=== PATIENT | male | born 1980 | race Caucasian/White ===

== ENCOUNTER 2020-09-10 14:59 | Emergency (ER) | payer OTHER, SELFPAY ==
--- NOTE | ~2020-09-10 | XR_ITS ---
EXAMINATION: XR chest 2V EXAM DATE: 09/10/2020 15:54 INDICATION: Productive cough X 1 week, migraine headache. TECHNIQUE: Frontal and lateral projections of the chest obtained and reviewed. Comparison is made to prior examination from 07/02/2015. FINDINGS: Several regions of small scattered reticulonodular postinfectious residua. The lungs are ot herwise clear. There are no pleural effusions. The cardiomediastinal silhouette is within normal li mits. There is no pneumothorax suspected. The bones and soft tissues are unremarkable. IMPRESSION: No acute cardiopulmonary findings. Reviewed, dictated and finalized at location A.
[2020-09-10 15:26] VITALS: BP 139/90; PULSE 81; RESP 16; TEMP 36.5; O2SAT 98
--- NOTE | 2020-09-10 17:03 | ED.GENADULT ---
HPI - General Adult General Chief complaint: Upper Respiratory Infection Stated complaint: COUGH [id number] Time Seen by Provider: 09/10/20 16:52 History of Present Illness HPI narrative: Patient is a 40-year-old male who presents ER with cough. Ongoing for last few days. He has been vaccinated against Covid. No fevers or chills or sweats. Worse at night is laying down. Associate with runny nose. When he coughs hard he will develop a headache. Related Data Allergies Allergy/AdvReac Type Severity Reaction Status Date / Time No Known Allergies Allergy Unverified 04/25/17 14:46 Review of Systems Constitutional: Constitutional: Denies chills, Denies fever(s) and Denies weakness ENT: Reports nasal congestion and Denies sore throat Cardiovascular: Cardiovascular: Denies chest pain and Denies radiating jaw, neck or arm pain Respiratory: Respiratory: Reports cough, Denies dyspnea and Denies wheezing PMFSH Past Medical History Medical History (Updated 09/10/20 @ 17:05 by Supa Raymundo MD) Healthy adult male Surgical History Surgical History (Updated 09/10/20 @ 17:04 by Supa Raymundo MD) No history of previous surgery Social History Social History (Updated 09/10/20 @ 17:04 by Supa Raymundo MD) Smoking status: Current every day smoker Smoking end date: 03/02/03 Alcohol intake: never Exam Narrative: Exam Narrative: GENERAL: Well-appearing, well-nourished, and in no acute distress. HEAD: Normocephalic, atraumatic. ENT: Mucous membranes moist. No pharyngeal erythema or tonsillar exudate. CHEST: Clear to auscultation. No respiratory distress. HEART: Regular rate and rhythm. Normal peripheral pulses. NEURO: Alert and oriented x3. PSYCH: Normal mood and affect. Course Course Emergency Course: Discharge home with outpatient medication as he has been having rubbing of his nose as well as rhinorrhea. No improvement with dextromethorphan/guaifenesin. Vital Signs Vital signs: Vital Signs Temperature 97.7 F 09/10/20 15:26 Pulse Rate 81 09/10/20 15:26 Respiratory Rate 16 09/10/20 15:26 Blood Pressure 139/90 09/10/20 15:26 Pulse Oximetry 98 09/10/20 15:26 Temperature 97.7 F 09/10/20 15:26 Pulse Rate 81 09/10/20 15:26 Respiratory Rate 16 09/10/20 15:26 Blood Pressure 139/90 09/10/20 15:26 Pulse Oximetry 98 09/10/20 15:26 Medical Decision Making Vital Signs Vital Signs: Vital Signs Temperature 97.7 F 09/10/20 15:26 Pulse Rate 81 09/10/20 15:26 Respiratory Rate 16 09/10/20 15:26 Blood Pressure 139/90 09/10/20 15:26 Pulse Oximetry 98 09/10/20 15:26 Temperature 97.7 F 09/10/20 15:26 Pulse Rate 81 09/10/20 15:26 Respiratory Rate 16 09/10/20 15:26 Blood Pressure 139/90 09/10/20 15:26 Pulse Oximetry 98 09/10/20 15:26 Discharge Plan Discharge Clinical Impression: Upper respiratory infection Patient Disposition: Home, Self-Care Condition: Stable Instructions: Upper Respiratory Infection (ED) Additional Instructions: Return the ER for cavities, you cannot keep down food or water, you have chest pain or shortness of breath, you have additional concerns. Prescriptions: New loratadine [Allergy Relief (loratadine)] 10 mg tablet 10 mg PO DAILY Qty: 10 RF: 0 Follow-up/Referrals: Jean Claude De MD [Physician] - 1 Week PHYSICIAN,TAX ADJUSTER [Primary Care Provider] -
[2020-09-10 17:24] VITALS: BP 128/91; PULSE 72; RESP 15; O2SAT 94
== END 2020-09-10 17:25 | disposition home or self-care (01) ==
PROVIDERS: Emergency Provider Emergency Medicine
DX: J06.9 Acute upper respiratory infection, unspecified (principal); F17.200 Nicotine dependence, unspecified, uncomplicated
CPT/HCPCS: 71046; 99283

== ENCOUNTER 2020-12-28 23:11 | Emergency (ER) | payer OTHER, SELFPAY ==
--- NOTE | ~2020-12-28 | CT_ITS ---
EXAMINATION: CT abdomen pelvis wo con EXAM DATE: 12/29/2020 01:11 INDICATION: Right flank pain. TECHNIQUE: Spiral CT of the abdomen and pelvis was performed without contrast. Axial, coronal and sag ittal images were reviewed. The dose-length product (DLP) for this examination was 187.58 mGy-cm. T he exposure was tailored according to patient size (auto mA exposure control), and iterative reconstr uction (ASIR) was used as additional dose reduction technique. Comparison is made to prior examinatio n from 07/02/2016. FINDINGS: Some small calcifications which could be within left renal cyst or calyceal diverticulum me asuring about 1.3 cm. Previously seen punctate left nephrolithiasis in the lower pole no longer prese nt. There is no nephrolithiasis or hydronephrosis. The prostate is unremarkable. The bladder is un remarkable. The liver, spleen, adrenal glands and pancreas are unremarkable. Gallbladder is unremar kable. No biliary obstruction. There is no retroperitoneal or pelvic lymphadenopathy. The appendix is normal. There is mild sigmoid colonic diverticulosis. There is no adjacent inflammat ory change to suggest diverticulitis. The stomach and small bowel are unremarkable. There is expecte d amount of colonic stool. No free intraperitoneal gas. The heart is normal in size. There are n o pericardial or pleural effusions. 3 mm left basilar granuloma unchanged. There are no osteoblasti c or osteolytic lesions identified. IMPRESSION: 1. No acute findings. 2. Mild colonic diverticulosis. Reviewed, dictated and finalized at location A.
[2020-12-28 23:25] VITALS: BP 148/100; PULSE 110; RESP 20; TEMP 36.3; O2SAT 100
[2020-12-28 23:51] VITALS: BP 149/115; PULSE 100; RESP 18; O2SAT 97
[2020-12-29 00:03] LABS: Basophils Absolute Auto 0.1 K/mm3 (0.0-0.1); Basophils Percent Auto 0.9 % (0.2-1.2); Eosinophils Absolute Auto 0.1 K/mm3 (0-0.3); Eosinophils Percent Auto 0.8 % (0-4.4); Hematocrit 45.6 % (42.0-52.0); Hemoglobin 15.3 g/dL (14.0-18.0); Immature Granulocyte Absolute 0.08 K/mm3 (0.00-0.031); Immature Granulocyte Percent A 0.7 % (0-0.5); Lymphocytes Absolute Auto 1.28 K/mm3 (0.9-3.2); Lymphocytes Percent Auto 11.6 % (18.3-44.2); Mean Corpuscular HGB Conc 33.6 g/dl (32-36); Mean Corpuscular Hemoglobin 26.1 pg (26-34); Mean Corpuscular Volume 77.8 fl (80-100); Mean Platelet Volume 9.5 fl (7.4-10.4); Monocytes Absolute Auto 0.9 K/mm3 (0.1-0.6); Monocytes Percent Auto 8.1 % (2.6-8.5); Neutrophils Absolute Auto 8.6 K/mm3 (1.3-6.7); Neutrophils Percent Auto 77.9 % (45.5-73.1); Platelet Count Result 319 k/mm3 (150-375); Red Blood Count 5.86 M/mm3 (4.6-6.20); Red Cell Distribution Width 13.2 % (11.5-14.5)
[2020-12-29 00:18] LABS: Add Urine Microscopic? YES; Alanine Aminotransferase 18 U/L (4-50); Albumin Level 4.1 g/dL (3.5-5.1); Alkaline Phosphatase 90 U/L (38-126); Anion Gap 9 mmol/L (8-16); Appearance Urine Cloudy (Clear); Aspartate Amino Transferase 21 U/L (17-59); Bacteria Urine Trace /hpf; Bilirubin Urine Negative (Negative); Bilirubin,Total 0.8 mg/dL (0.2-1.3); Blood Urea Nitrogen 9 mg/dL (9-20); Blood Urine 2+ (Negative); Calcium 9.2 mg/dL (8.4-10.2); Carbon Dioxide 24 mmol/L (22-30); Chloride 104 mmol/L (98-107); Color Urine Yellow (Yellow); Estimated CRCL calculation 92 ml/min; Estimated Glomerular Filt Rate > 60; Glucose 142 mg/dL (65-110); Glucose Urine UA Negative (Negative); Ketones Urine Negative (Negative); Leukocyte Esterase Ur 3+ LEU/UL (Negative); Lipase 57 U/L (23-300); Mucus Urine Few /lpf; Nitrate Urine Negative (Negative); Protein Urine 1+ mg/dL (Negative); Sodium 137 mmol/L (137-145); Specific Grav Ur 1.015 (1.001-1.035); Squamous Epithelial Cell Urine Rare /hpf (Few); WBC Urine >75 /hpf
[2020-12-29] MEDS: SODIUM CHLORIDE 0.9% IV 1,000 ML 999 ML IV CONT (00:29)
[2020-12-29 00:31] VITALS: BP 136/95; PULSE 94; RESP 20; O2SAT 97
--- NOTE | 2020-12-29 00:47 | ED.GENADULT ---
HPI - General Adult General Chief complaint: Abdominal Pain Stated complaint: abdominal pain Time Seen by Provider: 12/28/20 23:35 History of Present Illness HPI narrative: Patient is a 40-year-old male who reports lower abdominal pain radiating to his back for last couple days. Reports he does not drink water and only drinks soda and is concerned that he may be in kidney failure like you had been previously. Reports fatigue. No fevers or chills or sweats. No nausea or vomiting. Denies chest pain/chest pressure/shortness of breath. Reports some history of chronic low back pain. Reports he has been taking Tylenol fours for his low abdominal pain but has not helped. Related Data Allergies Allergy/AdvReac Type Severity Reaction Status Date / Time No Known Allergies Allergy Verified 12/28/20 23:29 Review of Systems Review of Systems: All systems reviewed & are unremarkable except as noted in HPI and below Constitutional: Constitutional: Denies chills, Reports fatigue, Denies fever(s) and Denies weakness ENT: Denies nasal congestion and Denies sore throat Cardiovascular: Cardiovascular: Denies chest pain, Denies rapid heart rate and Denies radiating jaw, neck or arm pain Respiratory: Respiratory: Denies cough and Denies dyspnea Gastrointestinal: Gastrointestinal: Reports abdominal pain, Denies diarrhea, Denies nausea and Denies vomiting Genitourinary: Genitourinary: Denies oliguria, Denies dysuria and Denies urinary frequency Comments: Denies flank pain PMFSH Past Medical History Medical History (Updated 12/29/20 @ 02:26 by Supa Raymundo MD) Hypertension Kidney stones Surgical History Surgical History (Updated 09/10/20 @ 17:04 by Supa Raymundo MD) No history of previous surgery Social History Social History (Updated 09/10/20 @ 17:04 by Supa Raymundo MD) Smoking status: Current every day smoker Smoking end date: 03/02/03 Alcohol intake: never Exam Narrative: GENERAL: Well-appearing, well-nourished, and in no acute distress. HEAD: Normocephalic, atraumatic. ENT: Mucous membranes moist. CHEST: Clear to auscultation. No respiratory distress. HEART: Regular rate and rhythm. Normal peripheral pulses. ABDOMEN: Soft, nontender, nondistended. No CVA tenderness. EXTREMITIES: Normal range of motion. No edema. SKIN: Warm, dry, no rash. NEURO: Alert and oriented x3. PSYCH: Normal mood and affect. Course Course Emergency Course: Patient informed of results. Ciprofloxacin for UTI. Discharge home. Hydrated. Vital Signs Vital signs: Vital Signs Temperature 97.3 F L 12/28/20 23:25 Pulse Rate 110 H 12/28/20 23:25 Respiratory Rate 20 12/28/20 23:25 Blood Pressure 148/100 H 12/28/20 23:25 Pulse Oximetry 100 12/28/20 23:25 Temperature 97.3 F L 12/28/20 23:25 Pulse Rate 94 12/29/20 00:31 Respiratory Rate 20 12/29/20 00:31 Blood Pressure 136/95 H 12/29/20 00:31 Pulse Oximetry 97 12/29/20 00:31 Medical Decision Making Vital Signs Vital Signs: Vital Signs Temperature 97.3 F L 12/28/20 23:25 Pulse Rate 110 H 12/28/20 23:25 Respiratory Rate 20 12/28/20 23:25 Blood Pressure 148/100 H 12/28/20 23:25 Pulse Oximetry 100 12/28/20 23:25 Temperature 97.3 F L 12/28/20 23:25 Pulse Rate 94 12/29/20 00:31 Respiratory Rate 20 12/29/20 00:31 Blood Pressure 136/95 H 12/29/20 00:31 Pulse Oximetry 97 12/29/20 00:31 Lab Data Result diagrams: 12/28/20 23:48 12/28/20 23:47 Labs: Lab Results 12/28/20 12/28/20 12/28/20 Range/Units 23:47 23:47 23:48 WBC 11.0 H (4.5-10.0) K/mm3 RBC 5.86 (4.6-6.20) M/mm3 Hgb 15.3 (14.0-18.0) g/dL Hct 45.6 (42.0-52.0) % MCV 77.8 L (80-100) fl MCH 26.1 (26-34) pg MCHC 33.6 (32-36) g/dl RDW 13.2 (11.5-14.5) % Plt Count 319 (150-375) k/mm3 MPV 9.5 (7.4-10.4) fl Immature Gran % (Auto) 0.7 H (0-0.5) % Neut % (Auto
[2020-12-29] MEDS: MORPHINE SULFATE (*CRX) 4 MG/ML INJ IV PUSH (00:48)
[2020-12-29] MEDS: CIPROFLOXACIN 500 MG TAB PO (00:48)
[2020-12-29 02:42] VITALS: BP 142/95; PULSE 82; RESP 18; TEMP 36.7; O2SAT 98
== END 2020-12-29 02:47 | disposition home or self-care (01) ==
PROVIDERS: Emergency Provider Emergency Medicine
DX: N39.0 Urinary tract infection, site not specified (principal); I10 Essential (primary) hypertension; Z87.442 Personal history of urinary calculi; Z87.891 Personal history of nicotine dependence
CPT/HCPCS: 36415; 74176; 80053; 81001; 83690; 85025; 87077; 87086; 87088; 87186; 96361; 96374; 99284; A9270; J2270; J7030

== ENCOUNTER 2022-04-02 13:19 | Emergency (ER) | payer OTHER, SELFPAY ==
--- NOTE | ~2022-04-02 | XR_ITS ---
EXAM: XR lumbar spine min 4V DATE: 04/02/2022 14:17 HISTORY: fall with pain . COMPARISON: None available. FINDINGS: 5 nonrib-bearing lumbar-type vertebral bodies. Pedicles intact. Normal vertebral body alig nment. Vertebral body heights preserved. Mild multilevel degenerative disc disease. Normal facets and posterior elements. No fracture or dislocation. IMPRESSION: No acute fracture or traumatic malalignment detected in the lumbar spine. Reviewed, dictated and finalized at location K. LE MARKETING MANAGER
--- NOTE | ~2022-04-02 | XR_ITS ---
EXAM: XR thoracic spine 3V DATE: 04/02/2022 14:17 HISTORY: fall with pain . COMPARISON: None available. FINDINGS: Vertebral body alignment intact. Vertebral body heights preserved. Exaggerated thoracic ky phosis. Multilevel disc space narrowing and marginal osteophytosis. No traumatic malalignment or frac ture. Visualized lung parenchyma is clear. IMPRESSION: No acute fracture or traumatic malalignment detected in the thoracic spine. Reviewed, dictated and finalized at location K. RETTE MAKING EXAMINER IMPRESSION: No acute fracture or traumatic malalignment detected in the thoraci c spine.
[2022-04-02 13:28] VITALS: BP 133/87; PULSE 73; RESP 18; TEMP 36.4; O2SAT 98
--- NOTE | 2022-04-02 14:33 | ED.GENADULT ---
HPI - General Adult General Chief complaint: Back Pain/Injury Stated complaint: fall/back pain Time Seen by Provider: 04/02/22 13:54 History of Present Illness HPI narrative: this is a 41-year-old male presenting ED with a chief complaint of back pain. Patient was watching Thursday night wrestling and his friend's house and when he came back he slipped on the ice and fell on his back. Since then has been complaining of pain in the left paralumbar muscles and in his tailbone. He denies numbness tingling weakness to his lower extremities. He denies pain on defecation, saddle anesthesia, difficulty urinating or bowel incontinence. Related Data Allergies Allergy/AdvReac Type Severity Reaction Status Date / Time No Known Allergies Allergy Verified 12/28/20 23:29 Review of Systems Review of Systems: All systems reviewed & are unremarkable except as noted in HPI and below PMFSH Past Medical History Medical History Hypertension Kidney stones Surgical History Surgical History No history of previous surgery Social History Social History Smoking status: Current every day smoker Smoking end date: 03/02/03 Alcohol intake: never Exam Narrative: APPEARANCE: No apparent distress. Head: atraumatic. EYES: EOMI, NOSE: Atraumatic NECK: Trachea midline RESPIRATORY: No increased rate of breathing CARDIOVASCULAR: RRR, ABDOMINAL: Non-distended MUSCULOSKELETAl: Tenderness palpation in the left paralumbar muscles. Tenderness over the sacrum with no overlying bruising. NEURO: Alert. Moving 4/4 extremities , patient is able ambulate SKIN:: Warm, dry. Normal color PSYCHIATRIC: Normal affect Course Vital Signs Vital signs: Vital Signs Temperature 97.6 F 04/02/22 13:28 Pulse Rate 73 04/02/22 13:28 Respiratory Rate 18 04/02/22 13:28 Blood Pressure 133/87 04/02/22 13:28 Pulse Oximetry 98 04/02/22 13:28 Oxygen Delivery Room Air 04/02/22 13:28 Temperature 97.6 F 04/02/22 13:28 Pulse Rate 73 04/02/22 13:28 Respiratory Rate 18 04/02/22 13:28 Blood Pressure 133/87 04/02/22 13:28 Pulse Oximetry 98 04/02/22 13:28 Oxygen Delivery Room Air 04/02/22 13:28 Medical Decision Making [facility] Narrative Medical decision making narrative: -Presentation: is a 41-year-old male presenting with lower back pain after he slipped and fell on ice 2 days ago. -DDX includes but is not limited to: MSK pain, compression fracture, coccyx fracture -Co-morbidities complicating care: none -Social determinants of health: lives with his mother -External Chart Review: none -Hx from independent Sources: none -Discussion of Management/Consultants: none -Independent interpretation of studies: x-rays of the thoracic/lumbar spine revealed no acute injuries. -Procedures: -Interventions: Narka 07/02/2024, Robaxin 750 mg -Shared decision making / Disposition: discussed discharge versus admission. Patient has no acute fractures. His pain is controlled with Narka and Robaxin. He will be discharged with prescriptions for Motrin Tylenol Robaxin. Patient is agreeable to this plan. -RX Motrin 800 mg t.i.d., Tylenol 1000 mg t.i.d., Robaxin 1500 mg t.i.d. Vital Signs Vital Signs: Vital Signs Temperature 97.6 F 04/02/22 13:28 Pulse Rate 73 04/02/22 13:28 Respiratory Rate 18 04/02/22 13:28 Blood Pressure 133/87 04/02/22 13:28 Pulse Oximetry 98 04/02/22 13:28 Oxygen Delivery Room Air 04/02/22 13:28 Temperature 97.6 F 04/02/22 13:28 Pulse Rate 73 04/02/22 13:28 Respiratory Rate 18 04/02/22 13:28 Blood Pressure 133/87 04/02/22 13:28 Pulse Oximetry 98 04/02/22 13:28 Oxygen Delivery Room Air 04/02/22 13:28 Discharge Plan Discharge Clinical Impression: Strain of lumbar region Patient
[2022-04-02] MEDS: methocarbamoL 750 MG TABLET PO (14:52)
[2022-04-02] MEDS: HYDROcodone/acetaminophen (*CRX) 5-325 MG TABLET 2 TAB PO (14:52)
== END 2022-04-02 15:39 | disposition home or self-care (01) ==
PROVIDERS: Emergency Provider Emergency Medicine
DX: S39.012A Strain of muscle, fascia and tendon of lower back, initial encounter (principal); I10 Essential (primary) hypertension; Z87.442 Personal history of urinary calculi; W00.0XXA Fall on same level due to ice and snow, initial encounter
CPT/HCPCS: 72072; 72110; 99283; A9270

== ENCOUNTER 2022-08-14 11:24 | Emergency (ER) | payer OTHER, SELFPAY ==
[2022-08-14 11:33] VITALS: BP 145/102; PULSE 106; RESP 18; TEMP 36.2; O2SAT 96
--- NOTE | 2022-08-14 12:30 | PC.NURSE ---
Pt approached front desk manager and states he cannot wait any longer to be seen.
== END 2022-08-14 12:30 | disposition left against medical advice (07) ==
LOC: ANHED 12:33
DX: J02.0 Streptococcal pharyngitis (principal)
CPT/HCPCS: 99199

== ENCOUNTER 2022-10-09 21:11 | Observation (INO) | payer OTHER, SELFPAY ==
--- NOTE | ~2022-10-09 | US_ITS ---
EXAMINATION: US right upper quadrant DATE: 10/10/2022 08:35 INDICATION: Acalculous cholecystitis. Right upper quadrant abdominal pain. TECHNIQUE: Multiple grayscale and Doppler ultrasound images of the abdomen were obtained. COMPARISON: CT abdomen and pelvis 10/09/2022, 12/29/2020, 07/02/2016 FINDINGS: The pancreas is obscured by bowel gas. The liver is normal without focal lesion. There is n ormal flow in main portal vein. The gallbladder is contracted. No visible gallstones. There is no son ographic Nolan sign. The common duct is normal and measures 6 mm. IMPRESSION: 1. No etiology for the patient's symptoms. Reviewed, dictated and finalized at location A.
--- NOTE | ~2022-10-09 | CT_ITS ---
CT of the Abdomen and Pelvis: Indication: Abdominal pain Technique: 2.5 mm axial scans were obtained through the abdomen and pelvis following intravenous adm inistration of 100 cc of Omnipaque 350. Dose reduction technique was used on this scan by utilizing a utomated exposure control and iterative reconstruction technique. The dose-length product (DLP) was 5 15.20 mGy-cm. COMPARISON: 12/29/2020 Findings: Scans through the lung bases demonstrate a 4 mm left basilar pulmonary nodule, unchanged. The liver, spleen, pancreas, adrenals and right kidney are within normal limits. There is probable ga llbladder wall thickening and/or mild pericholecystic inflammatory change. The common bile duct is mi ldly dilated at 8 mm. Stable small nonobstructing left renal stones within the left renal cyst. No ev idence of aortic aneurysm. No lymphadenopathy. No bowel obstruction. Suspected mild wall thickening of proximal jejunal small bowel loops. No absces s or free air. Images through the pelvis were performed. Urinary bladder unremarkable. Prostate gland seminal vesicl es are unremarkable. No ascites. Impression: Gallbladder wall thickening and/or mild pericholecystic inflammatory change, with mildly dilated comm on bile duct. Acute cholecystitis is a consideration. If there is concern for acute biliary pathology , then consider ultrasound or HIDA scan, and/or MRCP as indicated. Suspected wall thickening of proximal jejunal loops, suspicious for nonspecific infectious/inflammato ry small bowel enteritis. Reviewed, dictated and finalized at [facility]. Impression: Gallbladder wall thickening and/or mild pericholecystic inflammatory change, wi th mildly dilated common bile duct. Acute cholecystitis is a consideration. If there is concern for acute biliary pathology, then consider ultrasound or HIDA scan, and/or MRCP as indicated. Suspected wall thickening of proximal jejunal loops, suspicious for nonspecific infectious/inflammatory small bowel enteritis.
[2022-10-09 21:13] VITALS: BP 169/120; PULSE 63; RESP 14; TEMP 36.9; O2SAT 98
[2022-10-09 21:33] LABS: Basophils Absolute Auto 0.2 K/mm3 (0.0-0.1); Basophils Percent Auto 1.4 % (0.2-1.2); Eosinophils Absolute Auto 0.4 K/mm3 (0-0.3); Hematocrit 44.3 % (42.0-52.0); Hemoglobin 14.3 g/dL (14.0-18.0); Immature Granulocyte Absolute 0.04 K/mm3 (0.00-0.031); Immature Granulocyte Percent A 0.4 % (0-0.5); Lymphocytes Absolute Auto 2.94 K/mm3 (0.9-3.2); Lymphocytes Percent Auto 26.8 % (18.3-44.2); Mean Corpuscular HGB Conc 32.3 g/dl (32-36); Mean Corpuscular Hemoglobin 25.1 pg (26-34); Mean Corpuscular Volume 77.9 fl (80-100); Mean Platelet Volume 9.9 fl (7.4-10.4); Monocytes Absolute Auto 0.7 K/mm3 (0.1-0.6); Monocytes Percent Auto 6.3 % (2.6-8.5); Neutrophils Absolute Auto 6.7 K/mm3 (1.3-6.7); Neutrophils Percent Auto 61.1 % (45.5-73.1); Platelet Count Result 298 k/mm3 (150-375); Red Blood Count 5.69 M/mm3 (4.6-6.20); Red Cell Distribution Width 15.5 % (11.5-14.5)
[2022-10-09 21:34] LABS: Alanine Aminotransferase 19 U/L (6-50); Albumin Level 4.2 g/dL (3.5-5.1); Alkaline Phosphatase 71 U/L (38-126); Anion Gap 4 mmol/L (8-16); Aspartate Amino Transferase 24 U/L (17-59); Bilirubin,Total 0.4 mg/dL (0.2-1.3); Blood Urea Nitrogen 12 mg/dL (9-20); Calcium 8.9 mg/dL (8.4-10.2); Carbon Dioxide 27 mmol/L (22-30); Chloride 101 mmol/L (98-107); Estimated CRCL calculation 71 ml/min; Estimated Glomerular Filt Rate > 60; Glucose 114 mg/dL (65-110); Lipase 152 U/L (23-300); Potassium 3.9 mmol/L (3.4-5.0); Sodium 132 mmol/L (137-145)
[2022-10-09 21:47] LABS: Appearance Urine Cloudy (Clear); Bacteria Urine None Seen /hpf; Bilirubin Urine Negative (Negative); Blood Urine Negative (Negative); Color Urine Yellow (Yellow); Glucose Urine UA Negative (Negative); Ketones Urine Trace mg/dL (Negative); Leukocyte Esterase Ur Negative LEU/UL (Negative); Nitrate Urine Negative (Negative); Non Pathogenic Casts 0-2; Protein Urine Negative (Negative); Specific Grav Ur 1.019 (1.001-1.035); Squamous Epithelial Cell Urine None seen /hpf (Few); WBC Urine 0-5 /hpf; pH Urine 7.5 (5.0-9.0)
[2022-10-09 21:50] LABS: Add Urine Microscopic? YES
--- NOTE | 2022-10-09 23:14 | ED.GENADULT ---
HPI - General Adult General Chief complaint: Abdominal Pain <NICOLE Oneal Last Filed: 10/10/22 02:48> Stated complaint: i think my kidneys are messing with me . N/V. abd <Devante Basurto PA-C - Last Filed: 10/10/22 02:48> Time Seen by Provider: 10/09/22 22:24 <Devante Basurto PA-C - Last Filed: 10/10/22 02:48> Source: patient <NICOLE Oneal Last Filed: 10/10/22 02:48> Mode of arrival: ambulatory <NICOLE Oneal Last Filed: 10/10/22 02:48> Limitations: no limitations <Devante Basurto PA-C - Last Filed: 10/10/22 02:48> History of Present Illness HPI narrative: This is a 42-year-old male who presents to the ED with chief complaint of N/V and abdominal pain x 5 days. Patient reports he is able to eat but it seems like pain is worse half an hour after eating. He describes the pain as a twisting pain in the epigastrium that radiates superiorly. Reports he tried to use a heating pad which had no relief. He has not taken any medications for this. He states have had kidney problems in the past and I think my kidneys are messing with me. Denies fevers, chills, diarrhea, chest pain, shortness of breath, cough. <Devante Basurto PA-C - Last Filed: 10/10/22 02:48> Related Data Home medications: Home Medications Medication Instructions Recorded Confirmed escitalopram oxalate 10 mg tablet 10 mg PO DAILY 10/10/22 10/10/22 hydrochlorothiazide 25 mg tablet 25 mg PO DAILY 10/10/22 10/10/22 <NICOLE Oneal Last Filed: 10/10/22 02:48> Allergies/adverse reactions: Allergies Allergy/AdvReac Type Severity Reaction Status Date / Time No Known Allergies Allergy Verified 12/28/20 23:29 <NICOLE Oneal Last Filed: 10/10/22 02:48> Review of Systems Review of Systems: All systems as dictated in HPI <Devante Basurto PA-C - Last Filed: 10/10/22 02:48> [facility] [place] Past Medical History Medical History: Medical History (Updated 10/12/22 @ 18:07 by Julee Hammonds MD) ALONDRA (acute kidney injury) Depression Essential (primary) hypertension Former smoker Healthy adult male Hypertension Hypertriglyceridemia Kidney stones Smoking 1/2 pack a day or less SOB (shortness of breath) Tobacco abuse <Devante Basurto PA-C - Last Filed: 10/10/22 02:48> Surgical History Surgical History: Surgical History No history of previous surgery <Devante Basurto PA-C - Last Filed: 10/10/22 02:48> Social History Social History: Social History Smoking packs per day: 1 Smoking cigarettes per day: 20.0 Years smoked: 29 Smoking pack-years: 29.00 Smoking status: Former smoker Tobacco type: cigarettes Second hand tobacco smoke exposure: No Smoking end date: 03/02/18 Alcohol intake: former Drinks per week: 10 Substance use: current Substance use type: marijuana Lack of Transportation: No Lack of Food: Never True Current Housing: I Have Housing Concerned About Future Housing: No Difficulty Paying Gas/Electric Bills: No Difficulty Paying for Meds: No Currently Unemployed: No Education: High School Diploma/GED Difficulty w/ Childcare or Family Care: No Spiritual care concerns: No <Devante Basurto PA-C - Last Filed: 10/10/22 02:48> Exam Narrative: GENERAL: Well-appearing, well-nourished, and in no acute distress. HEAD: Normocephalic, atraumatic. EYES: PERRLA and EOMI. ENT: Nares clear, no rhinorrhea or epistaxis. Mucous membranes moist. Oropharynx without tonsillar hypertrophy exudate or other lesions. NECK: Supple. No adenopathy or masses. CHEST: No respiratory distress. Clear to auscultation. No wheezes rales or rhonchi HEART: Regular rate and rhythm. No murmur heard. Normal peripheral pulses. ABDOMEN: Epigastric and right upper quadrant tenderness present. Mild distention. Normal active bow
[2022-10-09] MEDS: MORPHINE SULFATE (*CRX) 4 MG/ML INJ IV PUSH (23:39)
[2022-10-09] MEDS: ONDANSETRON INJ 4 MG/2 ML VIAL IV PUSH (23:39)
[2022-10-09] MEDS: SODIUM CHLORIDE 0.9% IV 1,000 ML 999 ML IV CONT (23:40)
[2022-10-09 23:42] VITALS: BP 152/118; PULSE 74; RESP 15; O2SAT 99
[2022-10-09 23:43] VITALS: BP 152/117; O2SAT 98
[2022-10-09 23:44] VITALS: O2SAT 98
[2022-10-09 23:45] VITALS: BP 138/104; O2SAT 95
[2022-10-09 23:46] VITALS: O2SAT 98
[2022-10-10] VITALS (13 sets, daily range): BP systolic 132–138; BP diastolic 92–93; PULSE 72–75; RESP 16–18; TEMP 36.2–36.4; O2SAT 96–99; BMI 24.3
[2022-10-10] MEDS: MORPHINE SULFATE (*CRX) 4 MG/ML INJ IV PUSH ×3 (01:21→15:17)
[2022-10-10] MEDS: FAMOTIDINE 20 MG/2 ML VIAL IV PUSH (01:40)
[2022-10-10] MEDS: PIPERACILLIN/TAZ 4.5G/NS 100ML 4.5 GM/100 ML BAG IVPB ×3 (01:40→14:01)
[2022-10-10 01:49] LABS: Lactic Acid Reflex 0.6 mmol/L (0.7-2.0)
[2022-10-10 02:00] LABS: Prothrombin Time 13.5 Seconds (11.1-14.7)
--- NOTE | 2022-10-10 02:50 | ADMGEN ---
This patient, Jayant Toney, was admitted to Medical Room 342-01. Patient/family oriented to hospital policies and general routines including ID bracelet, bed and alarms, visiting hours, pain management, procedures, bathroom and other care routines, personal items, smoking policy, room service/diet, and visiting hours. Information on how to activate the Rapid Response Team has been discussed. Patient/Family are encouraged to report perceived risks to care and to ask questions if they do not understand what they are told or what they should do.
[2022-10-10] MEDS: SODIUM CHLORIDE 0.9% IV 1,000 ML 125 ML IV CONT ×2 (03:44→12:40)
--- NOTE | 2022-10-10 07:15 | PM.IMHP ---
H&P: HPI History of Present Illness Date/Time: 10/10/22 07:15 Chief Complaint: cramping abdominal pain every night for the past 5 days with nausea and vomiting Narrative: This is a 42-year-old male patient with a history of hypertension and depression not currently on any medication but he is supposed to be taking hydrochlorothiazide and Lexapro. Patient presented to the emergency department last night due to ranging abdominal pain with nausea and vomiting. Patient reports this been ongoing for 5 days worse at night each night. He had some chills last night as well. No documented fever before this. Patient reports his symptoms are worse after eating and last night he ate steak and chops and then had the worst abdominal pain of the 5 days multiple episodes of vomiting he describes the emesis as black initially and then black with orange coloration. Patient reports generalized abdominal pain now states his nausea is under control. He was placed NPO with a few ice chips only in anticipation of possible surgery today for acute cholecystitis. Dr. Abarca was consulted by the emergency department and will see the patient today. Review of Systems Review of Systems: All systems reviewed & are unremarkable except as noted in HPI and below PMFSH Past Medical History Medical History ALONDRA (acute kidney injury) Depression Essential (primary) hypertension Former smoker Healthy adult male Hypertension Hypertriglyceridemia Kidney stones Smoking 1/2 pack a day or less SOB (shortness of breath) Surgical History Surgical History No history of previous surgery Social History Social History Smoking packs per day: 1 Smoking cigarettes per day: 20.0 Years smoked: 29 Smoking pack-years: 29.00 Smoking status: Former smoker Tobacco type: cigarettes Second hand tobacco smoke exposure: No Smoking end date: 03/02/18 Alcohol intake: former Drinks per week: 10 Substance use: current Substance use type: marijuana Lack of Transportation: No Lack of Food: Never True Current Housing: I Have Housing Concerned About Future Housing: No Difficulty Paying Gas/Electric Bills: No Difficulty Paying for Meds: No Currently Unemployed: No Education: High School Diploma/GED Difficulty w/ Childcare or Family Care: No Spiritual care concerns: No Meds Home Medications and Allergies Home Medications Medication Instructions Recorded Confirmed Type escitalopram oxalate 10 mg tablet 10 mg PO DAILY 10/10/22 10/10/22 History hydrochlorothiazide 25 mg tablet 25 mg PO DAILY 10/10/22 10/10/22 History Allergies Allergy/AdvReac Type Severity Reaction Status Date / Time No Known Allergies Allergy Verified 12/28/20 23:29 Vital Signs Vital Signs - 24 hr 10/09/22 21:13 10/09/22 23:42 10/09/22 23:43 Temperature 36.9 C Pulse Rate 63 74 Respiratory Rate 14 15 Blood Pressure 169/120 H 152/118 H 152/117 H Pulse Oximetry 98 99 98 Oxygen Delivery Room Air 10/09/22 23:44 10/09/22 23:45 10/09/22 23:46 Temperature Pulse Rate Respiratory Rate Blood Pressure 138/104 H Pulse Oximetry 98 95 98 Oxygen Delivery 10/10/22 00:04 10/10/22 00:21 10/10/22 00:30 Temperature Pulse Rate Respiratory Rate Blood Pressure Pulse Oximetry 98 96 98 Oxygen Delivery 10/10/22 00:45 10/10/22 01:00 10/10/22 01:15 Temperature Pulse Rate Respiratory Rate Blood Pressure Pulse Oximetry 98 99 99 Oxygen Delivery 10/10/22 01:30 10/10/22 01:45 10/10/22 02:00 Temperature Pulse Rate Respiratory Rate Blood Pressure Pulse Oximetry 99 98 99 Oxygen Delivery 10/10/22 02:15 10/10/22 02:30 10/10/22 03:08 Temperature 36.4 C L Pulse Rate 75 Respiratory Rate 18 Blood Pressure 132/92 H P
--- NOTE | 2022-10-10 12:18 | PM.CNGS ---
Assessment and Plan Assessment and plan (1) Acute cholecystitis: Code(s): K81.0 - Acute cholecystitis Status: Acute Assessment and Plan: exam benign this am, pt is hungry and wants to eat, will ADAT, cont abx, d/w pt need for cholecystectomy and he would prefer to have done in the interval as outpt, ok to dc home c abx and f/u c me next wk to schedule interval cholecystectomy (2) Essential (primary) hypertension: Code(s): I10 - Essential (primary) hypertension Status: Acute Assessment and Plan: stable, encouraged to take home medications and be compliant (3) Tobacco abuse: Code(s): Z72.0 - Tobacco use Status: Acute Assessment and Plan: discussed cessation History of Present Illness Consult details Consult date: 10/10/22 Reason for consult: abdominal pain Requesting physician: Amando Villasenor MD Narrative: The patient is a 42-year-old male presenting to the emergency department complaining of severe upper abdominal pain. The patient reports the pain is mostly in his epigastrium and right upper quadrant with radiation to the back. The patient reports associated nausea and vomiting, poor appetite. The patient reports that the symptoms have firm progressively worsening over the last 5 days or so. Reports that the pain seems to be worse after eating and at night. Review of Systems Review of Systems: All systems reviewed & are unremarkable except as noted in HPI and below PMFSH Past Medical History Medical History ALONDRA (acute kidney injury) Depression Essential (primary) hypertension Former smoker Healthy adult male Hypertension Hypertriglyceridemia Kidney stones Smoking 1/2 pack a day or less SOB (shortness of breath) Surgical History Surgical History No history of previous surgery Social History Social History Smoking packs per day: 1 Smoking cigarettes per day: 20.0 Years smoked: 29 Smoking pack-years: 29.00 Smoking status: Former smoker Tobacco type: cigarettes Second hand tobacco smoke exposure: No Smoking end date: 03/02/18 Alcohol intake: former Drinks per week: 10 Substance use: current Substance use type: marijuana Lack of Transportation: No Lack of Food: Never True Current Housing: I Have Housing Concerned About Future Housing: No Difficulty Paying Gas/Electric Bills: No Difficulty Paying for Meds: No Currently Unemployed: No Education: High School Diploma/GED Difficulty w/ Childcare or Family Care: No Spiritual care concerns: No Meds Home Medications and Allergies Home Medications Medication Instructions Recorded Confirmed Type escitalopram oxalate 10 mg tablet 10 mg PO DAILY 10/10/22 10/10/22 History hydrochlorothiazide 25 mg tablet 25 mg PO DAILY 10/10/22 10/10/22 History Allergies Allergy/AdvReac Type Severity Reaction Status Date / Time No Known Allergies Allergy Verified 12/28/20 23:29 Vital Signs Vital Signs - 24 hr 10/09/22 21:13 10/09/22 23:42 10/09/22 23:43 Temperature 36.9 C Pulse Rate 63 74 Respiratory Rate 14 15 Blood Pressure 169/120 H 152/118 H 152/117 H Pulse Oximetry 98 99 98 Oxygen Delivery Room Air 10/09/22 23:44 10/09/22 23:45 10/09/22 23:46 Temperature Pulse Rate Respiratory Rate Blood Pressure 138/104 H Pulse Oximetry 98 95 98 Oxygen Delivery 10/10/22 00:04 10/10/22 00:21 10/10/22 00:30 Temperature Pulse Rate Respiratory Rate Blood Pressure Pulse Oximetry 98 96 98 Oxygen Delivery 10/10/22 00:45 10/10/22 01:00 10/10/22 01:15 Temperature Pulse Rate Respiratory Rate Blood Pressure Pulse Oximetry 98 99 99 Oxygen Delivery 10/10/22 01:30 10/10/22 01:45 10/10/22 02:00 Temperature Pulse Rate Respiratory Rate
--- NOTE | 2022-10-10 13:30 | PM.DS ---
DS: Admitting Diagnosis Discharge Date 10/10/2022 Admitting Diagnosis acute cholecystitis essential hypertension marijuana user DS: Discharge Diagnosis Discharge Diagnosis (1) Acute cholecystitis: Code(s): K81.0 - Acute cholecystitis Status: Acute (2) Essential (primary) hypertension: Code(s): I10 - Essential (primary) hypertension Status: Acute (3) Nausea & vomiting: Code(s): R11.2 - Nausea with vomiting, unspecified Status: Acute (4) Marijuana user: Code(s): F12.90 - Cannabis use, unspecified, uncomplicated Status: Acute DS: Summary Hospital Course Reason for hospitalization: Patient was admitted for right upper quadrant abdominal pain with nausea and vomiting and a diagnosis of acute cholecystitis. Hospital Course: Patient received IV fluids and adequate pain control with IV morphine. He was admitted overnight on IV Zosyn. This morning patient had right upper quadrant abdominal ultrasound which did not show any causative features for patient's acute cholecystitis. Dr. Abarca evaluated patient and with shared decision-making patient decided to pursue cholecystectomy as an outpatient. He will be discharged on antibiotic therapy and instructed to follow-up with Dr. Abarca in the office. Patient reports that he no longer takes his prescribed hydrochlorothiazide for blood pressure or Lexapro for depression. He states he doesn't like to take pills because he saw others getting addicted and hurting themselves with pills. Patient denied any self harm, suicidal ideation, homicidal ideation, hallucinations or other acute behavioral health emergencies. He states he had depression when his child but no significant problems since. Patient educated on the importance of finishing antibiotics as prescribed. Time spent discussing smoking cessation with patient: 3 to 10 minutes ( Instructed that smoking marijuana is still harmful to the lungs even though he no longer smokes cigarettes.) Status at Discharge Cognitive/behavioral status at discharge: awake, alert, oriented and pleasant Functional status at discharge: independent ambulation Overall status at discharge: patient is progressing back to baseline Time Spent with Patient Time attestation: Total time spent providing and/or coordinating discharge services: Time spent: Less than 30 minutes Exam Narrative: GENERAL: Generally well appearing, alert and oriented, in no apparent distress. He is pleasant and conversant in full sentences. HEENT: Pupils are equally round and briskly reactive to light. Extraocular muscles are intact. Oral mucous membranes are moist without lesions. NECK: The patient has no noted JVD. No adenopathy is appreciated. CHEST/LUNGS: Lungs are clear bilaterally without rhonchi, rales, or wheezes. There is no subcutaneous air appreciated. There is no tenderness to the chest wall. HEART: The patient has a regular rate and rhythm. No murmurs, rubs, or gallops are appreciated. Distal pulses are 2+. ABDOMEN: The patient's abdomen is? soft, nondistended with tenderness especially epigastric right upper quadrant.? Positive normoactive bowel sounds. EXTREMITIES: The patient has no peripheral edema. There is no focal long bone tenderness or deformity. SKIN: The patient's skin is warm and dry, without rashes or lesions. PSYCHIATRIC: The patient has normal mental status and has an appropriate affect. NEUROLOGIC:? There are no gross deficits to the cranial nerves.? Patient ambulates with steady gait. DS: Data Data Completed and Pending Completed studies during hospitalization: abdomen pelvis CT and right upper quadrant ultrasound Labs on day of discharge: Labs from last 24 hours 10/10/22 10/09/22 10/09/22 01:30 21:37 21:19 WBC 11.0 H RBC 5.69 Hgb 14.3 Hct 44.3 MCV 77.9 L MCH 25.1 L MCHC 32.3 RDW 15.5 H Plt Count 298 MPV 9.9 Immature Gran % (Auto) 0.4 Neut % (Auto) 61.1
== END 2022-10-10 18:45 | disposition home or self-care (01) ==
LOC: ANHED 22:35 → ANH3MED 10-10 02:43
PROVIDERS: Emergency Medicine; Admitting Provider Internal Medicine; Emergency Provider Physician Assistant; PCP Nurse Practitioner Family; Visit Provider Internal Medicine
DX: K81.0 Acute cholecystitis (principal); R79.89 Other specified abnormal findings of blood chemistry; I10 Essential (primary) hypertension; F32.A Depression, unspecified; Z87.891 Personal history of nicotine dependence; F12.90 Cannabis use, unspecified, uncomplicated
CPT/HCPCS: 36415; 74177; 76705; 80053; 81001; 83605; 83690; 85025; 85610; 87040; 87147; 87181; 87186; 96361; 96365; 96375; 96376; 99285; G0378; G0379; J2270; J2405; J2543; J7030; Q9967

== ENCOUNTER 2022-10-13 12:01 | Emergency (ER) | payer OTHER, SELFPAY ==
--- NOTE | ~2022-10-13 | CT_ITS ---
EXAMINATION: CT abdomen pelvis w con DATE: 10/13/2022 17:15 INDICATION: RUQ/periumbilical pain, vomiting TECHNIQUE: Computed tomography (CT) of the abdomen and pelvis was performed 10/09/2022 intravenous con trast. Automated exposure control and iterative reconstruction technique were employed. The dose-zhao th product was 462.12 mGy-cm. COMPARISON: 10/09/2022; right upper quadrant ultrasound 10/10/2022. FINDINGS: Lower thorax: Unremarkable. Bilateral lower lobe granulomas or intrapulmonary lymph nodes. Liver: Normal. Biliary/Gallbladder: Gallbladder is collapsed. Mild pericholecystic stranding. Mild intrahepatic and extrahepatic bile duct dilation, bile duct measures 9 mm at the chio hepatis. No obstructing stone o r mass detected. Pancreas: No mass or duct dilation. Spleen: Ill-defined hypodensity, likely hemangioma. Adrenals:No mass. Kidneys: Simple left renal cyst with nonobstructing associated calcifications. No suspicious mass, st one, or hydronephrosis. GI tract: Small hiatal hernia. Mild distal esophageal and gastric wall edema. No small or large bowel dilation. Normal appendix. Mesentery/Peritoneum: No ascites, mass, or free air. Retroperitoneum: No mass. Pelvis: Pelvic organs are within normal limits. Soft Tissues: Soft tissues and body wall unremarkable. Bones: No acute osseous finding. IMPRESSION: Mild esophagitis/gastritis. Mild persistent but overall improved pericholecystic inflammation, in a collapsed gallbladder. Mild intrahepatic and extra hepatic bile duct dilation, unchanged to slightly improved, without obstr ucting stone or mass detected. Reviewed, dictated and finalized at location K. IMPRESSION: Mild esophagitis/gastritis. Mild persistent but overall improved pericholecystic inflammation, in a collaps ed gallbladder. Mild intrahepatic and extra hepatic bile duct dilation, unchanged to slightly i mproved, without obstructing stone or mass detected.
[2022-10-13 12:10] VITALS: BP 115/81; PULSE 73; RESP 18; TEMP 36.7; O2SAT 100
[2022-10-13 13:58] LABS: Basophils Absolute Auto 0.1 K/mm3 (0.0-0.1); Basophils Percent Auto 1.2 % (0.2-1.2); Eosinophils Absolute Auto 0.4 K/mm3 (0-0.3); Eosinophils Percent Auto 4.6 % (0-4.4); Hematocrit 50.5 % (42.0-52.0); Hemoglobin 16.1 g/dL (14.0-18.0); Immature Granulocyte Absolute 0.05 K/mm3 (0.00-0.031); Immature Granulocyte Percent A 0.6 % (0-0.5); Lymphocytes Absolute Auto 2.08 K/mm3 (0.9-3.2); Lymphocytes Percent Auto 24.4 % (18.3-44.2); Mean Corpuscular HGB Conc 31.9 g/dl (32-36); Mean Corpuscular Hemoglobin 25.4 pg (26-34); Mean Corpuscular Volume 79.5 fl (80-100); Mean Platelet Volume 9.7 fl (7.4-10.4); Monocytes Absolute Auto 0.6 K/mm3 (0.1-0.6); Monocytes Percent Auto 6.7 % (2.6-8.5); Neutrophils Absolute Auto 5.3 K/mm3 (1.3-6.7); Neutrophils Percent Auto 62.5 % (45.5-73.1); Platelet Count Result 297 k/mm3 (150-375); Red Blood Count 6.35 M/mm3 (4.6-6.20); Red Cell Distribution Width 15.9 % (11.5-14.5); White Blood Count 8.5 K/mm3 (4.5-10.0)
[2022-10-13 13:59] LABS: Appearance Urine Clear (Clear); Bilirubin Urine Negative (Negative); Blood Urine Negative (Negative); Color Urine Yellow (Yellow); Glucose Urine UA Negative (Negative); Ketones Urine Negative (Negative); Leukocyte Esterase Ur Negative LEU/UL (Negative); Nitrate Urine Negative (Negative); Protein Urine Negative (Negative); Specific Grav Ur 1.006 (1.001-1.035); Urobilinogen Urine 0.2 mg/dL (<2.0)
[2022-10-13 14:09] LABS: Alanine Aminotransferase 32 U/L (6-50); Alkaline Phosphatase 71 U/L (38-126); Anion Gap 6 mmol/L (8-16); Aspartate Amino Transferase 32 U/L (17-59); Bilirubin,Total 0.4 mg/dL (0.2-1.3); Blood Urea Nitrogen 11 mg/dL (9-20); Calcium 9.8 mg/dL (8.4-10.2); Carbon Dioxide 32 mmol/L (22-30); Chloride 98 mmol/L (98-107); Estimated CRCL calculation 76 ml/min; Estimated Glomerular Filt Rate > 60; Glucose 90 mg/dL (65-110); Lipase 69 U/L (23-300); Sodium 136 mmol/L (137-145)
[2022-10-13 14:23] LABS: Add Urine Microscopic? NO
--- NOTE | 2022-10-13 15:39 | ED.ABDPAIN ---
HPI - Abdominal Pain General Chief Complaint: Abdominal Pain Stated Complaint: abd pain Time Seen by Provider: 10/13/22 14:47 History of Present Illness HPI narrative: Patient is a 42-year-old male presenting with abdominal pain. Patient states that he was here last week and diagnosed with possible acute cholecystitis. He was admitted but his symptoms resolved and he was able to go home with plan for outpatient cholecystectomy. States that he was sent home with Vicodin for pain control. Unfortunately, his pain has returned and now the pain medicine is not working. States that he started vomiting this morning. No diarrhea or constipation. No dysuria or hematuria. Denies fevers or chills. No further complaints. Related Data Home Medications Medication Instructions Recorded Confirmed escitalopram oxalate 10 mg tablet 10 mg PO DAILY 10/10/22 10/10/22 hydrochlorothiazide 25 mg tablet 25 mg PO DAILY 10/10/22 10/10/22 Allergies Allergy/AdvReac Type Severity Reaction Status Date / Time No Known Allergies Allergy Verified 10/13/22 14:50 Review of Systems Review of Systems: All systems reviewed & are unremarkable except as noted in HPI and below PMFSH Past Medical History Medical History ALONDRA (acute kidney injury) Depression Essential (primary) hypertension Former smoker Healthy adult male Hypertension Hypertriglyceridemia Kidney stones Smoking 1/2 pack a day or less SOB (shortness of breath) Tobacco abuse Surgical History Surgical History No history of previous surgery Social History Social History Smoking packs per day: 1 Smoking cigarettes per day: 20.0 Years smoked: 29 Smoking pack-years: 29.00 Smoking status: Former smoker Tobacco type: cigarettes Second hand tobacco smoke exposure: No Smoking end date: 03/02/18 Alcohol intake: former Drinks per week: 10 Substance use: current Substance use type: marijuana Lack of Transportation: No Lack of Food: Never True Current Housing: I Have Housing Concerned About Future Housing: No Difficulty Paying Gas/Electric Bills: No Difficulty Paying for Meds: No Currently Unemployed: No Education: High School Diploma/GED Difficulty w/ Childcare or Family Care: No Spiritual care concerns: No Exam Narrative: GENERAL: Well-appearing, well-nourished, and in no acute distress. HEAD: Normocephalic, atraumatic. EYES: PERRLA and EOMI. ENT: Nares clear, no rhinorrhea or epistaxis. Mucous membranes moist. NECK: Supple. CHEST: No respiratory distress. HEART: Regular rate and rhythm ABDOMEN: Soft, +RUQ/epigastric tenderness, no guarding or rebound EXTREMITIES: Normal range of motion. No edema. SKIN: Warm, dry, no rash. NEURO: No focal deficits. Alert and oriented x3. PSYCH: Normal mood and affect. Course Vital Signs Vital signs: Vital Signs Temperature 98.1 F 10/13/22 12:10 Pulse Rate 73 10/13/22 12:10 Respiratory Rate 18 10/13/22 12:10 Blood Pressure 115/81 10/13/22 12:10 Pulse Oximetry 100 10/13/22 12:10 Oxygen Delivery Room Air 10/13/22 12:10 Temperature 98.1 F 10/13/22 12:10 Pulse Rate 80 10/13/22 17:06 Respiratory Rate 20 10/13/22 17:06 Blood Pressure 118/82 10/13/22 17:06 Pulse Oximetry 99 10/13/22 17:06 Oxygen Delivery Room Air 10/13/22 12:10 MDM - Abdominal Pain MDM Narrative Medical decision making narrative: Patient is a 42-year-old male presenting with abdominal pain. Vitals are stable. Exam remarkable for the above. Blood work is unremarkable. No leukocytosis. LFTs are normal. CT abdomen pelvis with mild pericholecystic inflammation that is improving from prior imaging. There is mild biliary dilatation that is stable. He has mild esophagitis. On reevaluation, the patient is re
[2022-10-13] MEDS: SODIUM CHLORIDE 0.9% IV 1,000 ML 999 ML IV CONT (16:56)
[2022-10-13] MEDS: ONDANSETRON INJ 4 MG/2 ML VIAL IV PUSH (16:56)
[2022-10-13] MEDS: HYDROmorphone HCL INJ (*CRX) 1 MG/ML SYR 0.5 MG IV PUSH (16:56)
[2022-10-13 17:06] VITALS: BP 118/82; PULSE 80; RESP 20; O2SAT 99
== END 2022-10-13 18:35 | disposition home or self-care (01) ==
PROVIDERS: Emergency Medicine; Emergency Provider Emergency Medicine; PCP Nurse Practitioner Family
DX: R10.11 Right upper quadrant pain (principal); R11.2 Nausea with vomiting, unspecified; I10 Essential (primary) hypertension; E78.1 Pure hyperglyceridemia; F32.A Depression, unspecified; Z87.442 Personal history of urinary calculi; Z87.891 Personal history of nicotine dependence; K20.90 Esophagitis, unspecified without bleeding; K29.70 Gastritis, unspecified, without bleeding
CPT/HCPCS: 36415; 74177; 80053; 81003; 83690; 85025; 96361; 96374; 96375; 99284; J1170; J2405; J7030; Q9967

== ENCOUNTER 2022-10-31 14:48 | Outpatient (CLI) | payer OTHER, SELFPAY ==
--- NOTE | 2022-10-31 14:56 | ECG_ITS ---
Measurements Intervals [place] Rate: 63 P: 35 MO: 138 QRS: -14 QRSD: 85 T: -1 QT: 374 QTc: 385 Interpretive Statements SINUS RHYTHM BASELINE ARTIFACT- I, II, III, AVR, AVL, AVF, V1-V6 NORMAL ECG NO PREVIOUS ECG AVAILABLE FOR COMPARISON Electronically Signed On 10-31-2022 15:14:50 CDT by Noe Garcia D.O.
[2022-10-31 15:30] LABS: Amylase 65 U/L (30-110)
== END 2022-10-31 14:49 | disposition home or self-care (01) ==
LOC: ANHSURGERY 14:51
PROVIDERS: PCP Nurse Practitioner Family; Visit Provider Surgery
DX: K81.0 Acute cholecystitis (principal); I10 Essential (primary) hypertension; Z01.818 Encounter for other preprocedural examination
CPT/HCPCS: 36415; 82150; 86850; 86900; 86901; 93005

== ENCOUNTER 2022-11-05 02:47 | Day surgery (SDC) | payer OTHER, SELFPAY ==
[2022-10-28 15:12] VITALS: BMI 23.7
--- NOTE | 2022-10-28 15:17 | PC.NURSE ---
Report to the Outpatient Waiting Room, entrance under the green pavilion located off [facility], at time 11:00 on date 11/05/22. Planned Procedure Time: 1:00. Time changes happen often and if your time is changed the preop area will call you the afternoon before. - You and your visitor will be asked to self-screen and do not enter if you have any COVID symptoms. - A mask is optional within the hospital at this time. Patients may have clear liquids (water, carbonated beverages, clear teas, apple juice) until 3 hours prior to surgery with (10:00) a maximum of 20 ounces. - No food from midnight until time of surgery Take the following medications with a SIP of water the morning of surgery: ESCITALOPRAM DO NOT STOP ANY OF YOUR OTHER PRESCRIPTION MEDICATIONS PRIOR TO SURGERY ?EXCEPT THE FOLLOWING Medications to discontinue per physician: N/A Date to take last dose: N/A Please no make-up, nail nepali, hairspray, perfume, deodorant, or body powder the day of surgery. No jewelry (including any body piercings) or valuables the day of surgery, leave them at home. Please take a shower or bath the night before, or the morning of, surgery with an antibacterial soap (HIBICLENS). Wear comfortable, loose fitting clothing. - Jewelry must be removed prior to entering the operating room. Rings and piercings that are not removed may be cut off. - The hospital will not accept responsibility for valuables. - Please leave all valuables, including medications, at home the day of surgery. If you are going home after surgery, a licensed driver guard must drive you home. - NO public transportation without another adult if you receive anesthesia. - We recommend that an adult stay with you for 24 hours following discharge. - We also recommend that you do not drive, make important decision, drink alcoholic beverages, or take any drugs that were not prescribed by your health care provider for at least 24 hours after your discharge time. Follow any additional instructions given to you from your surgeon. If you or anyone in your household have experienced Covid symptoms in the past week, please notify your surgeon or the nurse liaison at the phone number below for possible testing. Telephone instructions given to PT - KORY SANFORD and asked if any additional questions and then verbalized understanding. Patient advised to call surgeon office or pre surgery nurse liaison [phone] if any additional questions.
[2022-11-05] VITALS (12 sets, daily range): BP systolic 121–176; BP diastolic 75–106; PULSE 47–87; RESP 12–21; TEMP 36.1–37.1; O2SAT 93–100; BMI 23.2
--- NOTE | 2022-11-05 11:30 | WPDHPUPDATE1 ---
History and Physical Update Update Date/Time: 11/05/22 11:30 History and Physical has been reviewed, including an updated exam of the patient. There are NO changes in the patient's condition. Risks, benefits, and alternatives have been discussed and questions answered. Patient agrees to proceed with procedure.
--- NOTE | 2022-11-05 11:40 | P.PNAN_ITS ---
Anes - Initial Pre Proc Eval Procedure: Operation Date: 11/05/22 13:00 Proposed Procedures p Laparoscopic Cholecystectomy - Francisca Abarca MD Date/Time: 11/05/22 11:40 Surgeon: Francisca Abarca MD Pre Op Diagnosis: Acute Cholecystitis Patient Data Age: 42 Gender: M Height: 1.8 m Weight: 77.15 kg Allergies Allergy/AdvReac Type Severity Reaction Status Date / Time No Known Allergies Allergy Verified 10/28/22 15:11 Home Medications Medication Instructions Recorded Confirmed Type escitalopram oxalate 10 mg tablet 10 mg PO DAILY 10/10/22 10/28/22 History hydrochlorothiazide 25 mg tablet 25 mg PO DAILY 10/10/22 10/28/22 History ondansetron 4 mg disintegrating 4 mg PO Q6H PRN nausea and 10/10/22 10/28/22 Rx tablet vomiting #20 tabs Patient hx anesthesia problems: none Family hx anesthesia problems: none Results Review: All pre-operative results and documents have been reviewed as part of the pre- operative evaluation. [facility] Past Medical History Medical History ALONDRA (acute kidney injury) Depression Essential (primary) hypertension Former smoker Healthy adult male Hypertension Hypertriglyceridemia Kidney stones Smoking 1/2 pack a day or less SOB (shortness of breath) Tobacco abuse Surgical History Surgical History No history of previous surgery Social History Social History Smoking packs per day: 2 Smoking cigarettes per day: 40.0 Years smoked: 15 Smoking pack-years: 30.00 Smoking status: Former smoker Tobacco type: cigarettes Second hand tobacco smoke exposure: No Smoking end date: 03/02/20 Alcohol intake: former Drinks per week: 10 Alcohol use details: NONE SINCE GALLBLADDER ISSUES, 2-3 BEERS/DAY PRIOR Substance use: current Substance use type: marijuana Lack of Transportation: No Lack of Food: Never True Current Housing: I Have Housing Concerned About Future Housing: No Difficulty Paying Gas/Electric Bills: No Difficulty Paying for Meds: No Currently Unemployed: No Education: High School Diploma/GED Difficulty w/ Childcare or Family Care: No Living arrangements: with family Spiritual care concerns: No Anes - Eval Final PreProcedure Day of Procedure 11/05/22 11:40 Patient weight: normal Heart: regular rate and rhythm Lungs: decreased breath sounds Airway: Mallampati scale class II Neurological: alert and oriented Last oral intake: >/= 8 hours ASA classification: III Emergent: no Anesthetic plan: proceed Anesthesia type and monitoring: general ETT and standard monitoring Results Review: All pre-operative results and documents have been reviewed as part of the pre- operative evaluation. Informed Consent: The patient's anesthetic plan and its attendant risks and benefits were discussed with the patient/family/POA. Questions were solicited and answers provided to the satisfaction of the patient/family/POA.
[2022-11-05] MEDS: LACTATED RINGERS 1,000 ML 30 ML IV CONT ×2 (11:45→13:56)
[2022-11-05] MEDS: ACETAMINOPHEN 500 MG TABLET 1000 MG PO (11:58)
[2022-11-05] MEDS: KETOROLAC 15 MG/ML VIAL (*BKC) IV PUSH (11:58)
[2022-11-05] MEDS: ceFAZolin 2 GM/D5W 50 ML 2 GM/50 ML BAG IVPB (12:50)
--- NOTE | 2022-11-05 13:53 | W.PM.PROC2 ---
Procedure Note - Detailed Date of Procedure 11/05/22 Pre-op Diagnosis Acute Cholecystitis Post-op Diagnosis Same Procedure Performed Laparoscopic cholecystectomy Surgeon Francisca Abarca MD Anesthesia General Indications 42-year-old male presented to the office complaining of postprandial right upper quadrant abdominal pain associated with nausea and vomiting. Workup including imaging significant for acute cholecystitis. Findings acute cholecystitis Description of Procedure The patient was taken to the operating room placed in the supine position. After adequate induction of general anesthesia, the patient was prepped and draped in normal sterile fashion. A time-out was then performed to verify the patient's identity as well as the procedure being performed. I then made a 5 mm incision in the infraumbilical region. Through this, a Veress needle was placed into the peritoneal cavity and CO2 gas was then insufflated. After adequate pneumoperitoneum was achieved, the Veress needle was removed and a 5 mm optiview trocar was placed through this incision under direct visualization. I then placed the laparoscope through this trocar site and under direct visualization placed a further 12 mm subxiphoid port as well as 2 additional 5 mm ports in the right upper abdomen. The gallbladder was then identified and was noted to be inflamed and contracted. I was able to place a grasper at the dome of the gallbladder and this was retracted anterior and cephalad up over the liver. A 2nd retractor was then placed at the infundibulum and retracted laterally, this allowed visualization of the triangle of Calot. I then was able to visualize the cystic duct in its entirety from its proximal insertion into the gallbladder, to its distal junction with the common hepatic/common bile duct junction. At this point, I carefully skeletonized the proximal cystic duct with the [place] dissector. I then clipped and transected the proximal cystic duct. Next I visualized the cystic artery. Again the artery was skeletonized, clipped, and transected. I then used the Bovie cautery to take down the peritoneal attachments of the gallbladder off the liver bed. This was somewhat difficult given the amount of inflammation in the posterior space. The gallbladder was also noted to be intrahepatic. Once the gallbladder specimen was completely detached, an endo-pouch was placed through the 12 mm port site. I then placed the gallbladder specimen into the Endo pouch and removed the endo-pouch from the 12 mm port site. The specimen will now be sent to pathology for further review. I then copiously irrigated the right upper quadrant. Some mild oozing was noted in the liver bed and this was controlled with the bovie cautery. Hemostasis was noted in the liver bed, the clips were noted to be in good position on both the cystic duct stump and the cystic artery stump. No other pathology was noted in the right upper quadrant. I then moved the laparoscope to the subxiphoid port. No iatrogenic injury or other pathology was noted in the lower abdomen. I then closed the 12 mm trocar site under direct visualization using the Chay cone and 0 Vicryl suture. At this point, the abdomen was desufflated and all ports removed. All port sites were then closed with 4.O Monocryl subcuticular sutures. Dermabond was placed on each incision. The patient tolerated the procedure well, was extubated in the operating room postoperative and will be transferred to the recovery room in stable condition Estimated Blood Loss 10 Drains No Packing No Pathology Yes Complications No immediate complications Condition Stable Disposition PACU [facility] Billing Surgery - Charge Forward: Surgery Billing
[2022-11-05] MEDS: fentaNYL CITRATE INJ (*CRX) 100 MCG/2 ML VIAL 25 MCG IV PUSH ×8 (14:27→15:54)
[2022-11-05] MEDS: ONDANSETRON INJ 4 MG/2 ML VIAL IV PUSH (15:40)
[2022-11-05] MEDS: oxyCODONE HCL (*CRX) 5 MG TAB IR PO (15:53)
[2022-11-05] MEDS: hydrALAZINE HCL 20 MG/ML VIAL 5 MG IV PUSH (16:30)
== END 2022-11-05 17:00 | disposition home or self-care (01) ==
PROVIDERS: PCP Nurse Practitioner Family; Visit Provider Surgery
PROC: 0FT44ZZ Resection of Gallbladder, Percutaneous Endoscopic Approach (ICD-10-PCS; CPT 47562; principal; 2022-11-05 13:00)
DX: K81.0 Acute cholecystitis (principal); D13.5 Benign neoplasm of extrahepatic bile ducts; I10 Essential (primary) hypertension; F32.A Depression, unspecified; Z87.891 Personal history of nicotine dependence; F12.90 Cannabis use, unspecified, uncomplicated
CPT/HCPCS: 47562; 88304; A9270; J0360; J0690; J1100; J1170; J1885; J2250; J2405; J2704; J3010; J7030; J7120

== ENCOUNTER 2022-11-05 21:20 | Inpatient (IN) | payer OTHER, SELFPAY ==
--- NOTE | ~2022-11-05 | XR_ITS ---
Portable chest x-ray Comparison: 11/06/2022 Clinical History: Pulmonary edema Findings: Lungs are clear, without focal consolidation or pleural effusion. Cardiomediastinal silho uette is stable. Bones and soft tissues are unremarkable. Impression: Clear lungs. Reviewed, dictated and finalized at [facility]. Impression: Clear lungs.
--- NOTE | ~2022-11-05 | XR_ITS ---
EXAMINATION: XR chest 1V portable Exam Date/Time: 11/05/2022 22:00 CDT HISTORY: chest pain, SOB, GALLBLADDER SURGERY THIS MORNING Comparison: 09/10/2020. RESULT: Lines, tubes, and devices: Cholecystectomy clips. Lungs and pleura: Moderate diffuse reticular opacities. Rightward rotation. Cardiomediastinal silhouette: Stable. Other: No acute osseous or upper abdominal finding. IMPRESSION: Moderate interstitial edema. Reviewed, dictated and finalized at location [facility].
--- NOTE | ~2022-11-05 | NM_ITS ---
EXAMINATION: NM hepatobiliary wo pharm DATE: 11/07/2022 12:32 INDICATION: Bile leak. COMPARISON: Abdomen and pelvis 11/05/2022 TECHNIQUE: 5.2 mCi Tc-99m mebrofenin (Choletec) was administered intravenously. Scintigraphic images of the abdomen were obtained for one hour. FINDINGS: There is delayed clearance of radiotracer from the blood pool. There is homogeneous tracer uptake by the liver. There is abnormal activity in the gallbladder fossa, consistent with bile leak. IMPRESSION: 1. Bile leak. 2. Delayed clearance of radiotracer from the blood pool, consistent with hepatocellular dysfunction. Reviewed, dictated and finalized at location A. IMPRESSION: 1. Bile leak. 2. Delayed clearance of radiotracer from the blood pool, consistent with hepato cellular dysfunction.
--- NOTE | ~2022-11-05 | CT_ITS ---
EXAMINATION: CTA chest abdomen DATE: 11/05/2022 22:52 INDICATION: CP, AP, hypoxia, tachypnea, post op. . TECHNIQUE: Computed tomography (CT) of the chest and abdomen was performed with 100 mL Omnipaque-350 intravenous contrast, in the arterial phase. Automated exposure control and iterative reconstruction technique were employed. The dose-length product was 497.24 mGy-cm. COMPARISON: X-ray chest, same date; CT abdomen pelvis 10/13/2022 FINDINGS: CHEST: Thoracic aorta: No dissection. No extravasation. Mild ascending aortic ectasia. No significant calcif ication. Although not tailored for their evaluation, there is reasonable contrast enhancement of the pulmonary arteries and no central or segmental pulmonary emboli are detected. Lung parenchyma and airways: Scattered ground glass opacities with a gravitational distribution. Inte rlobular septal thickening. Small tracheal diverticulum. Thoracic inlet, axillae and chest wall: No thyroid or soft tissue mass. No axillary lymphadenopathy. Mediastinum: No mass or lymphadenopathy. Moderate hiatal hernia. Heart and pericardium: Mild cardiomegaly. No pericardial effusion. Coronary artery calcifications: Absent. Pleura: No effusion or mass. Thoracic bones: No acute osseous finding in the chest. ABDOMEN: Liver: Normal. Biliary/Gallbladder: Gallbladder is absent. Small focus of inflammation/fluid in the gallbladder leyda a. No bile duct dilation. Pancreas: No mass or duct dilation. Spleen: Normal. Adrenals:No mass. Kidneys: No mass, stone, or hydronephrosis. Mild bilateral cortical thinning. Simple left upper pole cyst. GI tract: No small or large bowel dilation. Appendix likely excluded from the [id number]. Mesentery/Peritoneum: Small volume free air. No mass or free fluid. Retroperitoneum: No mass. No abdominal aortic aneurysm. Patent major branch vessels. Ulcerative plaqu e in the right common iliac artery near its origin and distally near the takeoff of the right interna l iliac artery. Soft Tissues: Somewhat tubular fluid collection measuring 1.3 x 2.8 cm in the subcutaneous tissues of the right upper quadrant likely a port site. Abdominal bones: No acute osseous finding in the abdomen. IMPRESSION: Moderate pulmonary edema. Mild cardiomegaly. No aortic aneurysm or dissection. Ulcerative plaques in the right common iliac artery. Alternatively, these may represent small iatroge victorino dissections if there has been recent right-sided catheterization. 2.8 cm subcutaneous hematoma/seroma in the right upper quadrant. Otherwise expected postsurgical changes from recent cholecystectomy. Reviewed, dictated and finalized at location [facility]. IMPRESSION: Moderate pulmonary edema. Mild cardiomegaly. No aortic aneurysm or dissection. Ulcerative plaques in the right common iliac artery. Alternatively, these may r epresent small iatrogenic dissections if there has been recent right-sided cath eterization. 2.8 cm subcutaneous hematoma/seroma in the right upper quadrant. Otherwise expected postsurgical changes from recent cholecystectomy.
--- NOTE | ~2022-11-05 | XR_ITS ---
EXAMINATION: XR chest 1V portable DATE: 11/06/2022 08:20 INDICATION: Pulmonary edema TECHNIQUE: frontal view of the chest was obtained. COMPARISON: Chest radiograph and CT dated 11/05/22 FINDINGS: Again seen is an increased interstitial pattern with subtle groundglass opacity in the bilateral mid and lower lung zones consistent with mild pulmonary edema. No pleural effusion or pneumothorax. Mild cardiomegaly. Cholecystectomy clips in the right upper quadrant. IMPRESSION: 1. Likely congestive heart failure with cardiomegaly and unchanged mild pulmonary edema. Reviewed, dictated and finalized at location A. IMPRESSION: 1. Likely congestive heart failure with cardiomegaly and unchanged mild pulmona ry edema.
[2022-11-05 21:18] VITALS: BP 158/120; PULSE 88; RESP 25; TEMP 36.4; O2SAT 89
--- NOTE | 2022-11-05 21:29 | ECG_ITS ---
Measurements Intervals [place] Rate: 92 P: 77 VT: 120 QRS: -51 QRSD: 98 T: 77 QT: 338 QTc: 419 Interpretive Statements SINUS RHYTHM LEFT ANTERIOR FASCICULAR BLOCK VOLTAGE CRITERIA FOR LVH TALL T-WAVES, SUGGESTS HYPERKALEMIA ABNORMAL ECG COMPARED TO ECG 10/31/2022 15:05:52 LEFT ANTERIOR FASCICULAR BLOCK NOW PRESENT LEFT VENTRICULAR HYPERTROPHY NOW PRESENT PEAKED T WAVES NOW PRESENT Electronically Signed On 11-06-2022 7:04:51 CDT by Noe Garcia D.O.
[2022-11-05 21:47] LABS: Hematocrit 51.6 % (42.0-52.0); Hemoglobin 16.2 g/dL (14.0-18.0); Mean Corpuscular HGB Conc 31.4 g/dl (32-36); Mean Corpuscular Volume 79.5 fl (80-100); Mean Platelet Volume 10.3 fl (7.4-10.4); Platelet Count Result 424 k/mm3 (150-375); Red Blood Count 6.49 M/mm3 (4.6-6.20); White Blood Count 28.5 K/mm3 (4.5-10.0)
[2022-11-05] MEDS: CALCIUM GLUCONATE 1,000 MG/10 ML VIAL 2000 MG IV PUSH (21:48)
[2022-11-05] MEDS: ASPIRIN 81 MG CHEWABLE TABLET 324 MG PO (21:50)
[2022-11-05 21:53] LABS: Alveolar/Arterial O2 Gradient 615.1 mmHg; Base Excess ABG -9.1 mEq/l (+/-2.0); Carboxyhemoglobin 1.3 % THb (0-2.0); Fractional Inspired Oxygen 100 %; HCO3 ABG 15.4 mEq/l (22.0-26.0); Methemoglobin ABG 0.4 %THb (0-1.5); Oxygen Content ABG 21.4 %vol (16.0-22.0); Oxygen Saturation ABG 92.4 % (95.0-100.0); Oxyhemoglobin 90.9 % THb (90.0-100.0); PCO2 ABG 30.3 mmHg (35.0-45.0); PO2 ABG 67.6 mmHg (80.0-100.0); PO2 FiO2 Ratio Arterial Blood 0.68 %; Reduced Hemoglobin 7.4 %THb (0-5.0); Total Hemoglobin 16.8 g/dL (12.0-18.0); pH ABG 7.323 (7.350-7.450)
[2022-11-05 21:54] LABS: Device NON-REBREATHER MASK; Site Drawn LEFT BRACHIAL
[2022-11-05 21:57] LABS: Prothrombin Time 13.6 Seconds (11.1-14.7)
[2022-11-05 21:58] LABS: Partial Thromboplastin Time 28.9 SECONDS (22.3-36.8)
[2022-11-05] MEDS: NITROGLYCERIN SL 0.4 MG TABLET (22:00)
[2022-11-05] MEDS: ONDANSETRON INJ 4 MG/2 ML VIAL (22:07)
[2022-11-05] MEDS: CEFEPIME 2 GM/NS 50 ML 2 GM/50 ML BAG IVPB (22:07)
[2022-11-05 22:18] LABS: Band Neutrophils Percent 1 % (0-6); Lymphocytes Absolute Manual 0.57 K/mm3 (1.1-4.5); Monocytes Absolute Manual 0.28 K/mm3 (0.1-0.90); Monocytes Percent Manual 1 % (3-9); Neutrophils Absolute Manual 27.64 K/mm3 (1.3-6.7); Neutrophils Percent Manual 96 % (46-73); Platelet Estimate Increased (Adequate); Schistocytes None Seen (NORMAL); Total Cells Counted 100
[2022-11-05] MEDS: FUROSEMIDE INJ 40 MG/4 ML VIAL IV PUSH (22:18)
[2022-11-05 22:19] LABS: Alanine Aminotransferase 40 U/L (6-50); Albumin Level 4.6 g/dL (3.5-5.1); Alkaline Phosphatase 90 U/L (38-126); Anion Gap 20 mmol/L (8-16); Anisocytosis 2+ (NORMAL); Aspartate Amino Transferase 51 U/L (17-59); Bilirubin,Total 1.6 mg/dL (0.2-1.3); Blood Urea Nitrogen 11 mg/dL (9-20); Calcium 8.9 mg/dL (8.4-10.2); Carbon Dioxide 18 mmol/L (22-30); Chloride 98 mmol/L (98-107); Estimated CRCL calculation 91 ml/min; Estimated Glomerular Filt Rate > 60; Glucose 292 mg/dL (65-110); Hypochromasia 1+ (NORMAL); Lipase 104 U/L (23-300); Potassium 3.5 mmol/L (3.4-5.0); Sodium 136 mmol/L (137-145); Troponin I 0.159 ng/mL (0.000-0.034)
[2022-11-05 22:25] VITALS: RESP 34; O2SAT 98
[2022-11-05 22:25] LABS: CRP 0.6 mg/dL (<1.0)
--- NOTE | 2022-11-05 22:25 | ECG_ITS ---
Measurements Intervals [place] Rate: 86 P: 58 WI: 157 QRS: -46 QRSD: 110 T: 92 QT: 348 QTc: 417 Interpretive Statements SINUS RHYTHM WITH SINUS ARRHYTHMIA LEFT ANTERIOR FASCICULAR BLOCK LEFT VENTRICULAR HYPERTROPHY AND ST-T CHANGE PEAKED T WAVES- CONSIDER HYPERKALEMIA OR ISCHEMIA ABNORMAL ECG COMPARED TO ECG 11/05/2022 21:48:44 NO SIGNIFICANT CHANGES Electronically Signed On 11-06-2022 9:15:04 CDT by Noe Garcia D.O.
[2022-11-05 22:26] VITALS: RESP 34; O2SAT 98
--- NOTE | 2022-11-05 22:30 | ECG_ITS ---
Measurements Intervals [place] Rate: 84 P: 82 NC: 152 QRS: -51 QRSD: 120 T: 91 QT: 338 QTc: 401 Interpretive Statements SINUS RHYTHM WITH SINUS ARRHYTHMIA LEFT ANTERIOR FASCICULAR BLOCK LEFT VENTRICULAR HYPERTROPHY AND ST-T CHANGE PEKAED T WAVES- CONSIDER HYPERKALEMIA OR ISCHEMIA BASELINE WANDER- I ABNORMAL ECG COMPARED TO ECG 11/05/2022 21:32:56 SINUS ARRHYTHMIA NOW PRESENT Electronically Signed On 11-06-2022 8:18:02 CDT by Noe Garcia D.O.
[2022-11-05] MEDS: ONDANSETRON INJ 4 MG/2 ML VIAL IV PUSH (22:43)
[2022-11-05 22:45] LABS: NT Pro B Type Natriuretic Pept 405 pg/mL (19.9-100)
--- NOTE | 2022-11-05 22:56 | ED.CHESTPAIN ---
HPI - Chest Pain General Chief Complaint: Chest Pain Stated Complaint: post op pain, bigmity Time Seen by Provider: 11/05/22 21:35 Source: patient and family Mode of arrival: EMS Limitations: no limitations History of Present Illness HPI narrative: Patient presents to the emergency department by EMS accompanied by significant other for chest pain and shortness of breath. EMS notes that the patient had ectopy after every QRS while in route that resolved the patient was saturating in the high 80s and was placed on 4 L nasal cannula with some improvement patient very tachypneic. Patient notes that he has substernal squeezing chest pain that started approximately 1 hour prior to arrival that has been constant since onset, slightly radiates down to his epigastric region, denies any history of this in the past, has not tried thing for the pain, just associated shortness of breath of the same duration. Patient denies any history of heart disease but admits to history of high blood pressure. Patient had a gallbladder surgery laparoscopically performed earlier today and was discharged around 2 PM and was doing okay since then however he tried to eat when he got home and did not tolerate it well. Patient denies any significant abdominal pain but throughout questioning did gradually develop abdominal pain diffusely. Patient denies fever, recent injuries. Patient is unsure if he was on antibiotics. Patient denies use of blood thinners. Patient denies history of blood clots. Patient denies being a diabetic or history of smoking patient has not defecated since surgery. Patient denies diaphoresis. Patient admits to associated nausea. Related Data Home Medications Medication Instructions Recorded Confirmed escitalopram oxalate 10 mg tablet 10 mg PO DAILY 10/10/22 11/06/22 hydrochlorothiazide 25 mg tablet 25 mg PO DAILY 10/10/22 11/06/22 dicyclomine 20 mg tablet 20 mg PO TID 11/06/22 11/06/22 famotidine 20 mg tablet 20 mg PO BID 11/06/22 11/06/22 ondansetron 4 mg disintegrating 8 mg PO Q6H PRN nausea and vomiting 11/06/22 11/06/22 tablet Allergies Allergy/AdvReac Type Severity Reaction Status Date / Time No Known Allergies Allergy Verified 11/05/22 11:54 Review of Systems Review of Systems: A 10 system review of systems was completed on the patient and is negative except for what is stated in the HPI. Nursing and ancillary documentation was reviewed. [facility] Past Medical History Medical History ALONDRA (acute kidney injury) Depression Essential (primary) hypertension Former smoker Healthy adult male Hypertension Hypertriglyceridemia Kidney stones Smoking 1/2 pack a day or less SOB (shortness of breath) Tobacco abuse Surgical History Surgical History No history of previous surgery Social History Social History Smoking packs per day: 2 Smoking cigarettes per day: 40.0 Years smoked: 30 Smoking pack-years: 60.00 Smoking status: Former smoker Second hand tobacco smoke exposure: No Smoking end date: 11/07/19 Alcohol intake: never Drinks per week: 10 Alcohol use details: NONE SINCE GALLBLADDER ISSUES, 2-3 BEERS/DAY PRIOR Substance use: current Substance use type: marijuana Lack of Transportation: No Lack of Food: Never True Current Housing: I Have Housing Concerned About Future Housing: No Difficulty Paying Gas/Electric Bills: No Difficulty Paying for Meds: No Currently Unemployed: YES Education: High School Diploma/GED Difficulty w/ Childcare or Family Care: No Living arrangements: with family Spiritual care concerns: No Comments At time of signature, I have reviewed and agree with nursing past medical, surgical, social and family history unless otherwise noted. Please see the nursing chart for further informatio
[2022-11-05 22:57] LABS: Magnesium 0.9 mg/dL (1.6-2.3)
[2022-11-05 23:29] LABS: Base Excess ABG -4.8 mEq/l (+/-2.0); Fractional Inspired Oxygen 100 %; HCO3 ABG 19.9 mEq/l (22.0-26.0); Oxygen Content ABG 24.9 %vol (16.0-22.0); Oxygen Saturation ABG 99.8 % (95.0-100.0); Oxyhemoglobin 98.3 % THb (90.0-100.0); PCO2 ABG 36.3 mmHg (35.0-45.0); PO2 ABG 400.7 mmHg (80.0-100.0); PO2 FiO2 Ratio Arterial Blood 4.01 %; Total Hemoglobin 17.3 g/dL (12.0-18.0); pH ABG 7.357 (7.350-7.450)
[2022-11-05 23:30] LABS: Device NON-INVASIVE VENT; Non-Invasive Expiratory Pressure 6 CMH2O; Non-Invasive Inspiratory Pressure 12 CMH2O; Non-Invasive Vent Rate 8 /MIN; Site Drawn RIGHT BRACHIAL
[2022-11-05 23:42] VITALS: PULSE 83; RESP 29; O2SAT 100
[2022-11-05 23:42] LABS: Thyroid Stimulating Hormone Reflex 0.593 uIU/mL (0.465-4.68)
[2022-11-05 23:59] VITALS: BP 172/114; PULSE 140; RESP 12; O2SAT 100
[2022-11-06] VITALS (51 sets, daily range): BP systolic 105–174; BP diastolic 88–126; PULSE 77–121; RESP 12–30; TEMP 36.5–36.7; O2SAT 90–100; BMI 22.8
[2022-11-06 00:40] LABS: Appearance Urine Clear (Clear); Bacteria Urine None Seen /hpf; Bilirubin Urine Negative (Negative); Blood Urine Trace (Negative); Color Urine Yellow (Yellow); Glucose Urine UA 1+ mg/dL (Negative); Ketones Urine Negative (Negative); Leukocyte Esterase Ur Negative LEU/UL (Negative); Nitrate Urine Negative (Negative); Non Pathogenic Casts 0-2; Protein Urine Negative (Negative); RBC Urine 0-2 /hpf (0-2); Specific Grav Ur 1.019 (1.001-1.035); Squamous Epithelial Cell Urine None seen /hpf (Few); Urobilinogen Urine 0.2 mg/dL (<2.0); WBC Urine 0-5 /hpf
[2022-11-06 00:45] LABS: Add Urine Microscopic? YES
--- NOTE | 2022-11-06 01:10 | ECG_ITS ---
Measurements Intervals [place] Rate: 113 P: 29 IN: 155 QRS: -46 QRSD: 86 T: 65 QT: 317 QTc: 436 Interpretive Statements SINUS TACHYCARDIA LEFT ANTERIOR FASCICULAR BLOCK ST ABNORMALITY IN ANTEROLATERAL LEADS- CONSIDER ISCHEMIA PEAKED T WAVES- CONSIDER HYPERKALEMIA OR ISCHEMIA ABNORMAL ECG COMPARED TO ECG 11/05/2022 22:25:41 SINUS TACHYCARDIA NOW PRESENT Electronically Signed On 11-06-2022 8:25:06 CDT by Noe Garcia D.O.
[2022-11-06 01:11] LABS: Reflex Lactic Acid Yes or No Add Lactic
[2022-11-06 01:13] LABS: Influenza A QL RT-PCR Negative (Negative); Influenza B QL RT-PCR Negative (Negative); SARS-CoV-2 RNA PCR Positive (Negative)
[2022-11-06] MEDS: NITROGLYCERIN/D5W 200 MCG/ML 50 MG/250 ML BTL IV CONT (01:15)
[2022-11-06 02:01] LABS: Lactic Acid 3.7 mmol/L (0.7-2.0)
--- NOTE | 2022-11-06 02:27 | ADMGEN ---
This patient, Jayant Toney, was admitted to Intensive Care Unit-10. Patient/family oriented to hospital policies and general routines including ID bracelet, bed and alarms, visiting hours, pain management, procedures, bathroom and other care routines, personal items, smoking policy, room service/diet, and visiting hours. Information on how to activate the Rapid Response Team has been discussed. Patient/Family are encouraged to report perceived risks to care and to ask questions if they do not understand what they are told or what they should do.
[2022-11-06] MEDS: HEPARIN SOD/D5W 100 UNITS/ML 25,000 UNITS/250 ML BAG 13 UNITS IV CONT (02:53)
[2022-11-06] MEDS: MAGNESIUM SULF 2 GM/WATER 50ML 2 GM/50 ML BAG IVPB (03:05)
[2022-11-06 04:14] LABS: Estimated CRCL calculation 99 ml/min; Estimated Glomerular Filt Rate > 60
[2022-11-06] MEDS: HYDROmorphone HCL INJ (*CRX) 1 MG/ML SYR IV PUSH ×4 (05:05→20:12)
[2022-11-06] MEDS: ONDANSETRON INJ 4 MG/2 ML VIAL IV PUSH ×2 (05:13→16:34)
[2022-11-06 08:06] LABS: Hemoglobin 16.5 g/dL (14.0-18.0); Mean Corpuscular HGB Conc 32.4 g/dl (32-36); Mean Corpuscular Hemoglobin 25.3 pg (26-34); Mean Corpuscular Volume 78.3 fl (80-100); Mean Platelet Volume 11.3 fl (7.4-10.4); Platelet Count Result 371 k/mm3 (150-375); Red Blood Count 6.51 M/mm3 (4.6-6.20); White Blood Count 27.4 K/mm3 (4.5-10.0)
[2022-11-06 08:26] LABS: Band Neutrophils Percent 11 % (0-6); Lymphocytes Absolute Manual 1.37 K/mm3 (1.1-4.5); Monocytes Absolute Manual 1.09 K/mm3 (0.1-0.90); Monocytes Percent Manual 4 % (3-9); Neutrophils Absolute Manual 24.93 K/mm3 (1.3-6.7); Neutrophils Percent Manual 80 % (46-73); Platelet Estimate Adequate (Adequate); Schistocytes None Seen (NORMAL); Total Cells Counted 100
[2022-11-06] MEDS: PIPERACILLN/TAZ 3.375GM/NS50ML 3.375 GM/50 ML BAG IVPB ×3 (08:31→20:12)
--- NOTE | 2022-11-06 08:34 | PM.IMHP ---
H&P: HPI History of Present Illness Date/Time: 11/06/22 08:34 Chief Complaint: sob Narrative: 42 year old male with past medical history of essential hypertension, depression, acute kidney injury, hypertriglyceridemia, kidney stones, daily marijuana use since age of 14 presented to the ED on 11/05 in the night after he was discharged from his outpatient laparoscopic cholecystectomy which was done on 11/[address] Abarca.? He was discharged around 2:00 p.m. and was doing okay, but when he got home and tried to eat he started having epigastric and lower abdominal pain, after which he started developed difficulty breathing, chest tightness.? He was tachypneic, tachycardic and hypoxic upon arrival to the ER in moderate acute respiratory distress in complaining of chest pain.? Patient was placed on 15 L non-rebreather and was saturating in the mid 90s. Patient was then placed on a BiPAP. Troponins elevated x3. EKG showed peaked T-waves and ST depressions V4 to V6. Cardiology was consulted and was concerned for an NSTEMI. Plan was to take patient to the [facility] lab[facility] later today. CTA chest and abdomen showed moderate pulmonary edema, mild cardiomegaly, no aortic aneurysm or dissection, ulcerative plaques in the right common iliac artery alternatively may represent small iatrogenic dissection and that has been recent right sided catheterization.? 2.8 cm subcutaneous hematoma/seroma in the right upper quadrant.? Otherwise expected postsurgical changes from recent cholecystectomy.? Patient was started on nitroglycerin infusion, heparin infusion for elevated troponins and transferred to the ICU for further management.? Patient also tested positive for COVID.? Review of Systems Review of Systems: In catheterization lab [facility] Past Medical History Medical History ALONDRA (acute kidney injury) Depression Essential (primary) hypertension Former smoker Hypertension Hypertriglyceridemia Kidney stones Tobacco abuse Surgical History Surgical History History of laparoscopic cholecystectomy Social History Social History Smoking packs per day: 2 Smoking cigarettes per day: 40.0 Years smoked: 30 Smoking pack-years: 60.00 Smoking status: Former smoker Second hand tobacco smoke exposure: No Smoking end date: 11/07/19 Alcohol intake: never Drinks per week: 10 Alcohol use details: NONE SINCE GALLBLADDER ISSUES, 2-3 BEERS/DAY PRIOR Substance use: current Substance use type: marijuana Lack of Transportation: No Lack of Food: Never True Current Housing: I Have Housing Concerned About Future Housing: No Difficulty Paying Gas/Electric Bills: No Difficulty Paying for Meds: No Currently Unemployed: YES Education: High School Diploma/GED Difficulty w/ Childcare or Family Care: No Living arrangements: with family Spiritual care concerns: No Meds Home Medications and Allergies Home Medications Medication Instructions Recorded Confirmed Type escitalopram oxalate 10 mg tablet 10 mg PO DAILY 10/10/22 11/06/22 History hydrochlorothiazide 25 mg tablet 25 mg PO DAILY 10/10/22 11/06/22 History dicyclomine 20 mg tablet 20 mg PO TID 11/06/22 11/06/22 History famotidine 20 mg tablet 20 mg PO BID 11/06/22 11/06/22 History ondansetron 4 mg disintegrating 8 mg PO Q6H PRN nausea and vomiting 11/06/22 11/06/22 History tablet Allergies Allergy/AdvReac Type Severity Reaction Status Date / Time No Known Allergies Allergy Verified 11/05/22 11:54 Vital Signs Vital Signs - 24 hr 11/05/22 21:18 11/05/22 22:25 11/05/22 22:26 Temperature 97.6 F Pulse Rate 88 Respiratory Rate 25 H 34 H 34 H Blood Pressure 158/120 H Pulse Oximetry 89 L 98 98 Oxygen Delivery Nasal Cannula BiPAP BiPAP Oxygen Flow Rate 4 11/05/22 23:42 11/05/22 23:59
[2022-11-06 08:40] LABS: Partial Thromboplastin Time 65.9 SECONDS (22.3-36.8)
[2022-11-06 08:51] LABS: Hemoglobin A1C 5.5 % (<5.7)
[2022-11-06 08:52] LABS: Alanine Aminotransferase 48 U/L (6-50); Albumin Level 4.8 g/dL (3.5-5.1); Alkaline Phosphatase 89 U/L (38-126); Anion Gap 10 mmol/L (8-16); Aspartate Amino Transferase 96 U/L (17-59); Bilirubin,Total 2.8 mg/dL (0.2-1.3); Blood Urea Nitrogen 12 mg/dL (9-20); Calcium 9.1 mg/dL (8.4-10.2); Carbon Dioxide 27 mmol/L (22-30); Chloride 95 mmol/L (98-107); Estimated CRCL calculation 110 ml/min; Estimated Glomerular Filt Rate > 60; Glucose 174 mg/dL (65-110); Potassium 4.1 mmol/L (3.4-5.0); Sodium 132 mmol/L (137-145)
[2022-11-06 08:53] LABS: Magnesium 2.2 mg/dL (1.6-2.3); Phosphorus 2.7 mg/dL (2.5-4.5)
--- NOTE | 2022-11-06 09:21 | WPDCNINT ---
Assessment and Plan Assessment and plan (1) Hypertensive urgency: Code(s): I16.0 - Hypertensive urgency Status: Acute Assessment and Plan: Patient presented with hypertension, tachycardia, shortness of breath -was found to be in hypertensive urgency, along with pulmonary edema and chest pain -patient was started on nitroglycerin infusion for blood pressure control along with improvement in chest pain -patient also had acute hypoxic respiratory failure, patient he was on non-rebreather, then placed on BiPAP -currently on 2 L nasal cannula with adequate O2 sats -patient on hydrochlorothiazide at home -will initiate oral medications once patient starts taking p.o. (2) Pulmonary edema: Qualifiers: Chronicity: acute Qualified Code(s): J81.0 - Acute pulmonary edema Code(s): J81.1 - Chronic pulmonary edema Status: Acute Assessment and Plan: Pulmonary edema likely related to hypertensive urgency -chest x-ray this morning: Likely congestive heart failure with cardiomegaly and unchanged mild pulmonary edema. -patient given IV Lasix this morning -will monitor urine output (3) Non-ST elevation [place] (NSTEMI): Code(s): I21.4 - Non-ST elevation (NSTEMI) myocardial infarction Status: Acute Assessment and Plan: Patient presented with chest pain, tachycardia, hypoxia -EKG showed peaked T-waves diffusely, no ST elevation but ST depression in V4 to V6 -troponins are elevated, along with chest pain, shortness of breath, patient classifies as an NSTEMI, was started on infusion per Cardiology -will obtain 2D echocardiogram to assess LV function and wall motion abnormalities -started on aspirin 81 mg, -started on IV metoprolol -discussed with Cardiology, angiography this afternoon (4) Hypoxia: Code(s): R09.02 - Hypoxemia Status: Acute Assessment and Plan: Hypoxia has resolved, patient currently on 2 L nasal cannula, not tachypnic -continue to monitor (5) COVID-19: Code(s): U07.1 - COVID-19 Status: Acute Assessment and Plan: SARS-CoV-2 PCR was positive, only on 2 L nasal cannula which could be likely related to pulmonary edema -will hold dexamethasone and remdesivir for now (6) Abdominal pain: Code(s): R10.9 - Unspecified abdominal pain Status: Acute Assessment and Plan: Patient also complains of periumbilical and epigastric abdominal pain -11/05/2022 status post laparoscopic cholecystectomy at [facility] by Dr. Abarca -surgery has been consulted 11/05/2022 CTA chest and abdomen IMPRESSION: Moderate pulmonary edema. Mild cardiomegaly. No aortic aneurysm or dissection. Ulcerative plaques in the right common iliac artery. Alternatively, these may represent small iatrogenic dissections if there has been recent right-sided catheterization. 2.8 cm subcutaneous hematoma/seroma in the right upper quadrant. Otherwise expected postsurgical changes from recent cholecystectomy. Plan DVT prophylaxis: Heparin infusion for NSTEMI Stress ulcer prophylaxis: Protonix Nutrition: NPO for angiography Code Status: Full code Critical Care Time Spent: 47 minutes Discussed with patient updated with his condition and plan of care. He is aware that he will be going for angiography as he has discussed it with Cardiology. Due to a high probability of clinically significant, life threatening deterioration, the patient required my highest level of preparedness to intervene emergently and I personally spent this critical care time directly and personally managing the patient. This critical care time included obtaining a history; examining the patient; pulse oximetry; ordering and review of studies; arranging urgent treatment with development of a management plan; evaluation of patient's response to treatment; frequent reassessment; and discussions with other providers. It was exclusive of separately billable procedures and treating other patie
--- NOTE | 2022-11-06 09:28 | PM.CNCAR ---
Assessment and Plan Assessment and plan (1) Non-ST elevation [place] (NSTEMI): Code(s): I21.4 - Non-ST elevation (NSTEMI) myocardial infarction Status: Acute Assessment and Plan: Probable NSTEMI in setting of hypertensive urgency severe hypoxia related to flash pulmonary edema and COVID positivity. ECG revealed peak T-waves diffusely suggestive hyperkalemia he was not hypokalemic at presentation. There is no clear ST elevation his changes in more likely ischemic in nature and are a significant change from his prior ECG on 10/31/2022. While this may in fact be a type 2 infarction as above given the circumstances cannot exclude underlying plaque rupture. While I do not feel a primary plaque rupture is the primary cause is presentation this certainly cannot be excluded. As such, discussed risks, benefits and alternatives with regards to further evaluation and recommendation for coronary angiography for delineation of his coronary anatomy. His ongoing chest discomfort is epigastric in nature and appears more musculoskeletal and or postoperative in nature as opposed to an anginal equivalent. However, this is a highly unusual presentation in an individual with no prior known CAD or cardiac history. Continue heparin infusion for now. Continue nitroglycerin infusion for blood pressure control. -monitor for bleeding on heparin infusion postoperatively. Discussed with surgery need to clarify whether it would be deemed safe from a postoperative perspective to continue with anticoagulation and proceed with coronary angiography if intervention required with dual antiplatelet therapy. Initiate aspirin 81 mg daily, statin therapy. Beta-brad with metoprolol reasonable for additional stabilization BP and heart rate control. Will discuss with Dr. Driver of Interventional Cardiology. Continue ICU care on telemetry. Obtain 2D echocardiogram to assess for LV function, wall motion abnormalities, valvular pathology or pulmonary pressures in chamber size. Recommendations to follow after review. We discussed potential life-threatening nature of his presentation and risk for bleeding postoperatively with anticoagulation and antiplatelet therapy if intervention is required. Patient verbalized understanding and agreed to proceed with angiography. -patient will be kept NPO for now. Discussed with ICU team. I have spent a total of 84 minutes in the care of this patient including but not limited to discussions with the care team, review chart and electronic medical record, pertinent imaging, ECG, telemetry, laboratory studies as well as time in discussion with the patient, examination, subsequent chart review, medical decision-making, and documentation. (2) Pulmonary edema: Qualifiers: Chronicity: acute Qualified Code(s): J81.0 - Acute pulmonary edema Code(s): J81.1 - Chronic pulmonary edema Status: Acute Assessment and Plan: As above, likely secondary to hypertensive urgency presentation improving with IV Lasix however patient remains hypoxic but stable on nasal cannula. Continue IV Lasix 40 mg per volume status management. Monitor renal function electrolytes closely. (3) Hypertensive urgency: Code(s): I16.0 - Hypertensive urgency Status: Acute Assessment and Plan: Patient presented with hypertensive urgency with resulting flash pulmonary edema, acute hypoxic respiratory failure with resulting elevated troponin in setting COVID positivity. Continue nitroglycerin infusion for BP control. Wean as tolerated. Initiate oral antihypertensive therapy as appropriate as patient appears clinically. (4) Respiratory failure with hypoxia: Qualifiers: Chronicity: acute Qualified Code(s): J96.01 - Acute respiratory failure with hypoxia Code(s): J96.91 - Respiratory failure, unspecified with hypoxia Status: Acute Assessment and Plan: Continue O2 supplementation and wean as tolerated. IV
[2022-11-06] MEDS: FUROSEMIDE INJ 40 MG/4 ML VIAL IV PUSH (10:10)
[2022-11-06] MEDS: METOPROLOL TARTRATE INJ 5 MG/5 ML VIAL IV PUSH ×3 (10:10→22:12)
[2022-11-06] MEDS: ASPIRIN 81 MG ENTERIC TABLET PO (11:04)
[2022-11-06] MEDS: HEPARIN SODIUM 5,000 UNITS/ML VIAL 3000 UNITS IV PUSH (11:04)
--- NOTE | 2022-11-06 11:24 | PM.CNGS ---
Assessment and Plan Assessment and plan (1) Non-ST elevation [place] (NSTEMI): Code(s): I21.4 - Non-ST elevation (NSTEMI) myocardial infarction Status: Acute Assessment and Plan: Postop day 1 presenting back with NSTEMI in the setting of hypertensive urgency, flash pulmonary edema with hypoxia, and positive COVID test. Continue further workup and management by Cardiology. Echo pending. Currently on heparin infusion and possibility of proceeding with coronary angiography. (2) Pulmonary edema: Qualifiers: Chronicity: acute Qualified Code(s): J81.0 - Acute pulmonary edema Code(s): J81.1 - Chronic pulmonary edema Status: Acute Assessment and Plan: Likely secondary to hypertensive urgency. Improving with diuresis. Continue critical care management and diuresing as needed. Decreasing oxygenation needs. (3) Hypertensive urgency: Code(s): I16.0 - Hypertensive urgency Status: Acute Assessment and Plan: Continue critical care management. Cardiology following. Patient on a nitroglycerin infusion for blood pressure control. (4) Acute cholecystitis: Code(s): K81.0 - Acute cholecystitis Status: Acute Assessment and Plan: Status post laparoscopic cholecystectomy yesterday for acute cholecystitis. Surgery was uneventful with no immediate complications. CTA chest abdomen and pelvis in the ER had no findings concerning for any obvious postoperative complications. His abdominal pain could be related to typical postoperative pain, but we will continue to monitor closely. He is noted to have a slightly elevated total bilirubin. Liver enzymes could be elevated due to recent surgery. Repeat labs again tomorrow to trend LFTs. Continue critical care management and further cardiac workup and treatment. (5) COVID-19: Code(s): U07.1 - COVID-19 Status: Acute (6) Respiratory failure with hypoxia: Qualifiers: Chronicity: acute Qualified Code(s): J96.01 - Acute respiratory failure with hypoxia Code(s): J96.91 - Respiratory failure, unspecified with hypoxia Status: Acute Assessment and Plan: Improving with diuresis, oxygenation needs decreasing, continue critical care management and diuresing as needed. Plan I have discussed the patient's case and plan of care with Dr. Abarca. Thank you for allowing us to see the patient in consultation and we will continue to follow along with you. History of Present Illness Consult details Consult date: 11/06/22 Reason for consult: other (S/p laparoscopic cholecystectomy 11/05/2022) Requesting physician: Grcaiela Balderas MD Narrative: This is a 42-year-old man who presented to the ER last night with complaints of chest pain and shortness of breath. He underwent a laparoscopic cholecystectomy yesterday by Dr. Abarca for acute cholecystitis. Surgery went well without any immediate complications. He was discharged home. He reports when waking from surgery, he had expected abdominal pain at his incisions. He went home and otherwise was doing well. In the evening, he had a sudden onset of chest pain. He also developed shortness of breath. He then called EMS. In transfer via EMS he was noted to have frequent ectopy and was hypoxic and tachypneic. He was placed on oxygen. In the ER, he presented with hypertensive urgency. Workup showed leukocytosis, elevated troponins, lactic acidosis, and hyperglycemia. BNP was also elevated. He was given aspirin for possible acute coronary syndrome. He was found to be COVID positive. Lactic acid was initially 8.0 and has since trended down to 2.0 this morning. CTA of the chest abdomen and pelvis showed moderate pulmonary edema, mild cardiomegaly, ulcerative plaques in the right common iliac artery, 2.8 cm subcutaneous hematoma in the right upper quadrant, and otherwise expected postsurgical changes from recent cholecystectomy. Cardiology was consulted. He was start
[2022-11-06] MEDS: PANTOPRAZOLE SODIUM IV 40 MG VIAL IV PUSH (12:44)
--- NOTE | 2022-11-06 14:01 | WPDMODSED ---
Moderate Sedation Note-Pt Data Patient Data Diagnosis: Flash pulmonary edema hyper acute precordial T-wave abnormality elevated troponin consider ACS postop day 1. Following cholecystectomy Present Complaint: mild central abdominal discomfort Procedure to be performed/Plan: left heart catheterization Allergies Allergy/AdvReac Type Severity Reaction Status Date / Time No Known Allergies Allergy Verified 11/05/22 11:54 Home Medications Medication Instructions Recorded Confirmed Type escitalopram oxalate 10 mg tablet 10 mg PO DAILY 10/10/22 11/06/22 History hydrochlorothiazide 25 mg tablet 25 mg PO DAILY 10/10/22 11/06/22 History dicyclomine 20 mg tablet 20 mg PO TID 11/06/22 11/06/22 History famotidine 20 mg tablet 20 mg PO BID 11/06/22 11/06/22 History ondansetron 4 mg disintegrating 8 mg PO Q6H PRN nausea and vomiting 11/06/22 11/06/22 History tablet Current Medications: Active Medications Aspirin (Aspirin 81 Mg Enteric Tablet) 81 mg PO QAM [facility] Last Admin: 11/06/22 11:04 Dose: 81 mg Heparin Sodium (Porcine) (Heparin Sodium 5,000 Units/Ml Vial) 3,000 units IV PUSH PRN PRN PRN Reason: aPTT 55 - 70 seconds Last Admin: 11/06/22 11:04 Dose: 3,000 units Heparin Sodium (Porcine) (Heparin Sodium 5,000 Units/Ml Vial) 6,000 units IV PUSH PRN PRN PRN Reason: aPTT less than 55 seconds Hydromorphone HCl (Hydromorphone Hcl Inj (*Crx) 1 Mg/Ml Syr) 1 mg IV PUSH Q3H PRN PRN Reason: Pain Rated 7-10 Last Admin: 11/06/22 11:05 Dose: 1 mg Vancomycin HCl (Vancomycin 1,500 Mg/D5w 500 Ml) 1,500 mg in 500 mls @ 250 mls/hr IVPB Q12H [facility] Last Infusion: 11/06/22 12:29 Dose: Infused Heparin Sodium/Dextrose (Heparin Sodium/D5w 100 Units/Ml) 25,000 units in 250 mls @ 14 mls/hr IV CONT .[id number] [facility]; Protocol Last Titration: 11/06/22 11:09 Dose: 1,400 units/hr, 14 mls/hr Piperacillin/Tazobactam/Dextrose (Zosyn 3.375 Gm/Ns 50 Ml) 3.375 gm in 50 mls @ 100 mls/hr IVPB Q6H [facility] Last Infusion: 11/06/22 09:53 Dose: Infused Nitroglycerin/Dextrose (Nitroglycerin In 5% Dextrose 50 Mg) 50 mg in 250 mls @ 1.5 mls/hr IV CONT .Q24H [facility]; Protocol Metoprolol Tartrate (Metoprolol Tartrate Inj 5 Mg/5 Ml Vial) 5 mg IV PUSH Q6H [facility] Last Admin: 11/06/22 10:10 Dose: 5 mg Ondansetron HCl (Ondansetron Inj 4 Mg/2 Ml Vial) 4 mg IV PUSH Q6H PRN PRN Reason: Nausea And Vomiting Last Admin: 11/06/22 05:13 Dose: 4 mg Pantoprazole Sodium (Pantoprazole Sodium Iv 40 Mg Vial) 40 mg IV PUSH QAM [facility] Perflutren Lipid Microsphere (Perflutren Lipid Microspheres 1.5 Ml Vial Diluted To 10 Ml Total Volume) 0 ml IV PUSH ONCE PRN; Protocol PRN Reason: adequate visualization Stop: 11/09/22 08:02 Sedation/Anesthesia: No previous sedation/anesthesia problems (including family history). [facility] Past Medical History Medical History ALONDRA (acute kidney injury) Depression Essential (primary) hypertension Former smoker Hypertension Hypertriglyceridemia Kidney stones Tobacco abuse Surgical History Surgical History History of laparoscopic cholecystectomy Social History Social History Smoking packs per day: 2 Smoking cigarettes per day: 40.0 Years smoked: 30 Smoking pack-years: 60.00 Smoking status: Former smoker Second hand tobacco smoke exposure: No Smoking end date: 11/07/19 Alcohol intake: never Drinks per week: 10 Alcohol use details: NONE SINCE GALLBLADDER ISSUES, 2-3 BEERS/DAY PRIOR Substance use: current Substance use type: marijuana Lack of Transportation: No Lack of Food: Never True Current Housing: I Have Housing Concerned About Future Housing: No Difficulty Paying Gas/Electric Bills: No Difficulty Paying for Meds: No Currently Unemployed: YES Education: High School Diploma/GED Difficulty w/ Childcare or Fami
--- NOTE | 2022-11-06 14:04 | P.PCNCC_ITS ---
Cardiac Cath Procedure Note Date of procedure:: 11/06/22 Performing physician:: Mart Driver MD Indication:: presumed non ST elevation IA Brief clinical history:: this is a 42-year-old man without prior cardiac history he has a longstanding cigarette smoker. Patient is now postop day 1. Following laparoscopic cholecystectomy. He previous and into the hospital last evening with severe respiratory distress/acute pulmonary edema. Electrocardiogram showed some peaked anterior T-waves and troponin level has been moderately elevated Procedure Procedure performed:: left ventriculogram coronary angiogram Sedation/Medication given:: fentanyl 50 mg Versed 2 mg case start time 1:29 p.m. case end time 1:55 p.m. sedation provided by Milena Jackson RN, trained observer Access site:: right femoral artery Estimated blood loss:: 20 cc Procedure note:: patient was brought to the cardiac catheterization lab in the postabsorptive state where the right femoral triangle was prepped and draped in the usual fashion. Anesthesia was provided with 1% lidocaine infiltrated locally. Using the modified Seldinger technique the femoral artery was punctured and a 5 Tongan vascular sheath was placed. After this I used a 5 Tongan angled pigtail catheter to perform a left ventriculogram in the ARROYO projection as well as to measure left-sided hemodynamics and pullback pressures across the aortic valve. Following this I engaged and injected the right coronary artery using a standard 5 Tongan JR4 catheter. I then advanced a 5 Tongan FL4 catheter into the ascending aorta. The ascending aorta is enlarged and the FL4 catheter would not satisfactorily engage the left main. This was then exchanged for an FL 5 catheter. The left coronary was then engaged in multiple projections. This cineangiograms were then reviewed and the case was terminated. I elected to sew the sheath in place with 2-0 silk, ACT was checked at 1:05 a.m.. He was taken back to ICU room 10. For post cath recovery and manual sheath removal. Findings:: Hemodynamics: Aortic pressure is 115 over 86 left ventricle 115 over 10 end-diastolic pressure 28. No gradient pullback across the aortic valve. Left ventricle: The LV is moderately dilated the apical segment of the LV contracts fairly well the remainder of the LV is nearly akinetic. The global ejection fraction is in the vicinity of 20-25%. The filling of the ascending aorta following LV g demonstrates moderate enlargement of the ascending aorta The left main coronary artery is short but nicely patent the left anterior descending is a large caliber vessel extending down to the apex the LAD and its branches are smooth and angiographically normal in appearance the circumflex is a large caliber vessel giving rise to marginal branches as well as the posterolateral branches. The circumflex trunk and all of its branches are smooth and angiographically normal in appearance the right coronary artery is large in caliber and terminates in the RPDA. The PL branches as described above are branches of the circumflex in this patient. The right coronary otherwise is angiographically normal. Conclusion:: 1. codominant coronary artery circulation with no angiographic evidence of significant coronary artery disease 2. very poor left ventricular systolic function with high LVEDP. Angiographic appearance is suggestive of reverse takotsubo cardiomyopathy 3. ascending aorta dilation Mart Driver MD [facility]
[2022-11-06 16:32] LABS: Activated Clotting Time 107 SEC (74-137)
[2022-11-06 17:31] LABS: Basophils Absolute Auto 0.1 K/mm3 (0.0-0.1); Basophils Percent Auto 0.3 % (0.2-1.2); Hematocrit 50.1 % (42.0-52.0); Hemoglobin 16.6 g/dL (14.0-18.0); Immature Granulocyte Absolute 0.26 K/mm3 (0.00-0.031); Immature Granulocyte Percent A 0.9 % (0-0.5); Lymphocytes Absolute Auto 1.51 K/mm3 (0.9-3.2); Mean Corpuscular HGB Conc 33.1 g/dl (32-36); Mean Corpuscular Hemoglobin 25.5 pg (26-34); Mean Corpuscular Volume 77.1 fl (80-100); Mean Platelet Volume 10.2 fl (7.4-10.4); Monocytes Absolute Auto 1.4 K/mm3 (0.1-0.6); Monocytes Percent Auto 4.5 % (2.6-8.5); Neutrophils Percent Auto 89.3 % (45.5-73.1); Platelet Count Result 357 k/mm3 (150-375); Red Cell Distribution Width 15.9 % (11.5-14.5); White Blood Count 30.3 K/mm3 (4.5-10.0)
[2022-11-06 17:40] LABS: Alanine Aminotransferase 61 U/L (6-50); Albumin Level 4.6 g/dL (3.5-5.1); Alkaline Phosphatase 80 U/L (38-126); Anion Gap 10 mmol/L (8-16); Aspartate Amino Transferase 92 U/L (17-59); Bilirubin,Total 3.8 mg/dL (0.2-1.3); Blood Urea Nitrogen 14 mg/dL (9-20); Calcium 8.7 mg/dL (8.4-10.2); Carbon Dioxide 30 mmol/L (22-30); Chloride 91 mmol/L (98-107); Estimated CRCL calculation 99 ml/min; Estimated Glomerular Filt Rate > 60; Glucose 169 mg/dL (65-110); Potassium 3.9 mmol/L (3.4-5.0); Sodium 131 mmol/L (137-145)
[2022-11-07] VITALS (16 sets, daily range): BP systolic 115–131; BP diastolic 89–108; PULSE 79–133; RESP 17–24; TEMP 35.8–36.9; O2SAT 94–98
--- NOTE | 2022-11-07 | ECHO_ITS ---
Patient Info Name: Jayant Toney Age: 42 years : 1980 Gender: Male Ht: 71 in Wt: 164 lbs BSA: 1.93 m2 HR: 94 bpm BP: 120 / 89 mmHg Technical Quality: Fair Exam Date: 11/07/2022 2:38 PM Exam Location: [facility] Pulmonary Exam Room: ICU10 Patient Status: Inpatient Admit Date: 11/06/2022 Staff Ordering Physician: Graciela Balderas MD Audioprosthologist: Jessa Butt RDCS Attending Provider: Amando Villasenor MD Referring Physician: Sherrie BLAND; Exam Type: CA echo dop color flow w con Study Info Indications - CHEST PAIN S/P CATH ELEVATED TROPONINS COVID POS Complete two-dimensional, color flow and Doppler transthoracic echocardiogram is performed with contrast to opacify the left ventricle and to improve the deliniation of the left ventricle endocardial borders. Contrast/Agitated Saline Contrast/Ag. Saline: Definity Amount: 2.00 ml Administered By: Jessa Butt [facility] Existing IV Access: Yes IV Access Condition: patent with no signs of infiltration Summary 1. Left ventricular systolic function is moderately reduced, estimated at 35-40%. 2. Left ventricular chamber dimension is normal. 3. There is moderately increased left ventricular wall thickness. 4. The left ventricular diastolic function is grade I diastolic dysfunction. 5. There is reverse takotsubo pattern with hyperdynamic apex and the rest of the segments are hypokinetic. 6. There is mild aortic valve sclerosis. 7. There is mild aortic valve regurgitation. 8. There is mild tricuspid valve regurgitation. 9. No pulmonary hypertension, estimated pulmonary arterial systolic pressure is 31 mmHg. 10. Aortic root measures 4 cm, sinotubular junction measures 4.3 cm and ascending aorta 3.7 cm. Left Ventricle Left ventricular chamber dimension is normal. Left ventricular systolic function is moderately reduced, estimated at 35-40%. There is moderately increased left ventricular wall thickness. Left ventricular septal wall motion is normal. The left ventricular diastolic function is grade I diastolic dysfunction. Right Ventricle Right ventricular chamber dimension is normal. Right ventricular systolic function is normal. Left Atria Left atrial chamber dimension is normal. Right Atria Right atrial chamber dimension is normal. Atrial Septum Intact interatrial septum visualized by color flow imaging. Aortic Valve The aortic valve is trileaflet. There is mild aortic valve sclerosis. There is no aortic valve stenosis. There is mild aortic valve regurgitation. Pulmonic Valve The pulmonic valve is normal. There is no pulmonic valve stenosis. There is no pulmonic regurgitation. Mitral Valve The mitral valve has normal leaflets. There is no mitral valve stenosis. There is no mitral valve regurgitation. Tricuspid Valve The tricuspid valve leaflets are normal. There is no significant tricuspid valve stenosis. There is mild tricuspid valve regurgitation. No pulmonary hypertension, estimated pulmonary arterial systolic pressure is 31 mmHg. Pericardium/Pleural The pericardium appears normal. There is no pericardial effusion. Inferior Vena Cava Normal inferior vena cava with >50% collapse upon inspiration consistent with Empty right atrial pressure, 5 mmHg. Aorta The aortic root size at the sinus of Valsalva is mildly dilated. The prox ascending aorta size is borderline dilated. Left Ventricular Outflow Tract Name
[2022-11-07] MEDS: HYDROmorphone HCL INJ (*CRX) 1 MG/ML SYR IV PUSH ×7 (01:12→23:52)
[2022-11-07] MEDS: PIPERACILLN/TAZ 3.375GM/NS50ML 3.375 GM/50 ML BAG IVPB ×4 (03:42→20:07)
[2022-11-07] MEDS: METOPROLOL TARTRATE INJ 5 MG/5 ML VIAL IV PUSH ×2 (03:43→09:17)
[2022-11-07 04:39] LABS: Basophils Absolute Auto 0.1 K/mm3 (0.0-0.1); Basophils Percent Auto 0.3 % (0.2-1.2); Hematocrit 51.6 % (42.0-52.0); Hemoglobin 16.1 g/dL (14.0-18.0); Immature Granulocyte Absolute 0.25 K/mm3 (0.00-0.031); Immature Granulocyte Percent A 0.9 % (0-0.5); Lymphocytes Absolute Auto 1.38 K/mm3 (0.9-3.2); Lymphocytes Percent Auto 4.7 % (18.3-44.2); Mean Corpuscular HGB Conc 31.2 g/dl (32-36); Mean Corpuscular Hemoglobin 24.7 pg (26-34); Mean Platelet Volume 10.5 fl (7.4-10.4); Monocytes Absolute Auto 1.5 K/mm3 (0.1-0.6); Monocytes Percent Auto 5.3 % (2.6-8.5); Neutrophils Absolute Auto 25.9 K/mm3 (1.3-6.7); Neutrophils Percent Auto 88.8 % (45.5-73.1); Platelet Count Result 341 k/mm3 (150-375); Red Blood Count 6.53 M/mm3 (4.6-6.20); Red Cell Distribution Width 15.9 % (11.5-14.5); White Blood Count 29.2 K/mm3 (4.5-10.0)
[2022-11-07 04:52] LABS: Alanine Aminotransferase 65 U/L (6-50); Albumin Level 4.3 g/dL (3.5-5.1); Alkaline Phosphatase 88 U/L (38-126); Anion Gap 9 mmol/L (8-16); Aspartate Amino Transferase 83 U/L (17-59); Bilirubin Direct 1.1 mg/dL (0-0.3); Bilirubin,Total 4.6 mg/dL (0.2-1.3); Blood Urea Nitrogen 19 mg/dL (9-20); Calcium 8.9 mg/dL (8.4-10.2); Carbon Dioxide 29 mmol/L (22-30); Chloride 90 mmol/L (98-107); Estimated CRCL calculation 99 ml/min; Estimated Glomerular Filt Rate > 60; Glucose 157 mg/dL (65-110); Magnesium 2.2 mg/dL (1.6-2.3); Phosphorus 3.2 mg/dL (2.5-4.5); Potassium 3.9 mmol/L (3.4-5.0); Sodium 128 mmol/L (137-145)
[2022-11-07 05:12] LABS: Burr Cells 1+ (NORMAL); Schistocytes None Seen (NORMAL)
[2022-11-07 05:13] LABS: Anisocytosis 1+ (NORMAL); Platelet Estimate Adequate (Adequate)
[2022-11-07] MEDS: PANTOPRAZOLE SODIUM IV 40 MG VIAL IV PUSH (08:17)
[2022-11-07] MEDS: ASPIRIN 81 MG ENTERIC TABLET PO (08:17)
--- NOTE | 2022-11-07 08:47 | WPDINTPN ---
Progress Note: A&P Assessment and Plan (1) Sepsis: Code(s): A41.9 - Sepsis, unspecified organism Status: Acute Assessment and Plan: Patient with sepsis, elevated WBC count, abdominal pain, elevated LFTs and total bilirubin -11/05 blood cultures: Growing Gram-positive cocci in clusters 1/2 bottles -11/05 MRSA culture negative -continue Zosyn and vancomycin (11/06) -elevated LFTs and total bilirubin, discussed with surgery, HIDA scan has been ordered to rule out bile leak -blood pressures are stable Chest x-ray this morning shows clear lungs (2) Cardiomyopathy: Code(s): I42.9 - Cardiomyopathy, unspecified Status: Acute Assessment and Plan: Patient presented with chest pain, shortness of breath a status post laparoscopic surgery on 11/05/2022 -elevated troponins, questionable NSTEMI -11/06/2022 cardiac catheterization showed no angiographic evidence of coronary artery disease. For LV systolic function with global EF 20-25%. Angiographic appearance suggestive of reverse takotsubo cardiomyopathy -significant cardiomyopathy, currently on IV metoprolol, once he starts taking p.o. will require heart failure management medications per guidelines -will leave up to Cardiology to add Gerson-I/Arb, diuretics (3) Hypertensive urgency: Code(s): I16.0 - Hypertensive urgency Status: Acute Assessment and Plan: RESOLVED Patient presented with hypertension, tachycardia, shortness of breath -was found to be in hypertensive urgency, along with pulmonary edema and chest pain -patient was started on nitroglycerin infusion for blood pressure control along with improvement in chest pain -patient also had acute hypoxic respiratory failure, patient he was on non-rebreather, then placed on BiPAP -currently on 2 L nasal cannula with adequate O2 sats -patient on hydrochlorothiazide at home -will initiate oral medications once patient starts taking p.o. (4) Pulmonary edema: Qualifiers: Chronicity: acute Qualified Code(s): J81.0 - Acute pulmonary edema Code(s): J81.1 - Chronic pulmonary edema Status: Acute Assessment and Plan: RESOLVED Pulmonary edema likely related to hypertensive urgency, status post Lasix x1 in the ER and the Lasix x1 on 11/06 in the ICU -urine output has been adequate -patient currently on 2 L nasal cannula with adequate O2 sats -11/07 chest x-ray this morning: Clear lungs (5) Non-ST elevation [place] (NSTEMI): Code(s): I21.4 - Non-ST elevation (NSTEMI) myocardial infarction Status: Acute Assessment and Plan: Patient presented with chest pain, tachycardia, hypoxia -EKG showed peaked T-waves diffusely, no ST elevation but ST depression in V4 to V6 -troponins are elevated, along with chest pain, shortness of breath, patient classifies as an NSTEMI, was started on infusion per Cardiology -status post cardiac angiography as above -continue aspirin 81 mg -continue IV metoprolol, will switch to p.o. when he is able to take medications orally -appreciate cardiology and the patient (6) Hypoxia: Code(s): R09.02 - Hypoxemia Status: Acute Assessment and Plan: Hypoxia has resolved, patient currently on 2 L nasal cannula, not tachypnic -continue to monitor (7) COVID-19: Code(s): U07.1 - COVID-19 Status: Acute Assessment and Plan: SARS-CoV-2 PCR was positive, only on 2 L nasal cannula which could be likely related to pulmonary edema -will hold dexamethasone and remdesivir for now (8) Abdominal pain: Code(s): R10.9 - Unspecified abdominal pain Status: Acute Assessment and Plan: Patient also complains of periumbilical and epigastric abdominal pain -11/05/2022 status post laparoscopic cholecystectomy at [facility] by Dr. Abarca -elevated bilirubin and LFTs, patient to obtain HIDA scan today to rule out bile leak 11/05/2022 CTA chest and abdomen IMPRESSION: Moderate pulmonary edema. Mild ca
--- NOTE | 2022-11-07 09:11 | PM.PNGS ---
Progress Note: A&P Assessment and Plan (1) Abdominal pain: Code(s): R10.9 - Unspecified abdominal pain Status: Acute Assessment and Plan: will get HIDA scan to r/o leak, cont abx Subjective Subjective Date/Time Seen: 11/07/22 09:11 Interval history: no acute issues overnight, still c upper abd pain Review of Systems Review of Systems: All systems reviewed & are unremarkable except as noted in HPI and below Exam Const: General: cooperative, tired appearing and uncomfortable Resp: Auscultation: diminished lung sounds Cardio: Rate: tachycardic Rhythm: regular rhythm GI: Inspection: normal to inspection, distended and incision GI Palp: Yes abdominal tenderness, Yes Soft to palpation, Yes Tenderness to palpation present (GI), No Guarding due to palpation present (GI) and No Rigid due to palpation Objective Data Vital Signs Vital Signs: Vital Signs - 24 hr 11/06/22 10:10 11/06/22 10:00 11/06/22 12:00 Temperature Pulse Rate 93 103 H 91 Respiratory Rate Blood Pressure Pulse Oximetry 98 Oxygen Delivery Nasal Cannula Oxygen Flow Rate 2 11/06/22 12:00 11/06/22 12:00 11/06/22 14:10 Temperature 36.5 C Pulse Rate 91 104 H 93 Respiratory Rate 17 Blood Pressure 115/91 H Pulse Oximetry 97 Oxygen Delivery Oxygen Flow Rate 11/06/22 14:10 11/06/22 14:25 11/06/22 15:10 Temperature Pulse Rate 94 90 92 Respiratory Rate 22 H 17 19 Blood Pressure 119/103 H 124/102 H 131/106 H Pulse Oximetry 91 96 90 Oxygen Delivery Oxygen Flow Rate 11/06/22 15:45 11/06/22 16:05 11/06/22 16:33 Temperature Pulse Rate 100 94 106 H Respiratory Rate 17 19 Blood Pressure 125/98 H 126/105 H Pulse Oximetry 95 96 Oxygen Delivery Oxygen Flow Rate 11/06/22 15:40 11/06/22 16:00 11/06/22 16:00 Temperature Pulse Rate 90 86 82 Respiratory Rate 19 Blood Pressure Pulse Oximetry 96 Oxygen Delivery Nasal Cannula Oxygen Flow Rate 2 11/06/22 18:00 11/06/22 15:02 11/06/22 15:15 Temperature Pulse Rate 81 90 109 H Respiratory Rate 22 H 21 H Blood Pressure Pulse Oximetry 95 96 Oxygen Delivery Oxygen Flow Rate 11/06/22 15:18 11/06/22 15:20 11/06/22 15:25 Temperature Pulse Rate 107 H 120 H 86 Respiratory Rate 15 18 16 Blood Pressure 131/108 H 132/111 H 108/88 Pulse Oximetry 96 95 92 Oxygen Delivery Oxygen Flow Rate 11/06/22 15:30 11/06/22 15:31 11/06/22 15:35 Temperature Pulse Rate 90 86 110 H Respiratory Rate 14 20 20 Blood Pressure 127/111 H 132/112 H Pulse Oximetry 95 95 95 Oxygen Delivery Oxygen Flow Rate 11/06/22 15:40 11/06/22 15:45 11/06/22 15:46 Temperature Pulse Rate 88 99 105 H Respiratory Rate 14 17 22 H Blood Pressure 127/99 H 125/98 H Pulse Oximetry 95 96 Oxygen Delivery Oxygen Flow Rate 11/06/22 15:51 11/06/22 15:55 11/06/22 16:00 Temperature Pulse Rate 101 H 113 H 84 Respiratory Rate 16 22 H 12 Blood Pressure 127/105 H 129/101 H 126/105 H Pulse Oximetry 98 97 97 Oxygen Delivery Oxygen Flow Rate 11/06/22 16:01 11/06/22 16:15 11/06/22 16:30 Temperature Pulse Rate 82 90 87 Respiratory Rate 16 13 22 H Blood Pressure 121/104 H Pulse Oximetry 96 96 95 Oxygen Delivery Oxygen Flow Rate 11/06/22 16:31 11/06/22 16:45 11/06/22 17:50 Temperature Pulse Rate 84 83 81 Respiratory Rate 21 H 21 H 18 Blood Pressure Pulse Oximetry 95 96 96 Oxygen Delivery Oxygen Flow Rate 11/06/22 18:00 11/06/22 18:01 11/06/22 18:46 Temperature Pulse Rate 80 82 86 Respiratory Rate 22 H 21 H 12 Blood Pressure 116/98 H 127/102 H Pulse Oximetry 96 95 92 Oxygen Delivery Oxygen Flow Rate 11/06/22 19:00 11/06/22 20:00 11/06/22 20:00 Temperature Pulse Rate 98 82 Respiratory Rate 22 H 17 18 Blood Pressure 132/106 H 105/92 H Pulse Oximetry 93 94 94 Oxygen Delivery Nasal Cannula Oxygen Flow Rate 2 11/06
--- NOTE | 2022-11-07 09:26 | PM.PNCARD ---
Progress Note: A&P Assessment and Plan (1) Cardiomyopathy: Code(s): I42.9 - Cardiomyopathy, unspecified <IRAJ Bartholomew - Last Filed: 11/07/22 10:51> Status: Acute <IRAJ Bartholomew - Last Filed: 11/07/22 10:51> Assessment and Plan: Severe cardiomyopathy with EF 20 - 25%. Reverse Takotsubo physiology seen on angiogram yesterday. Start lisinopril 5mg daily Will shift IV lopressor to metoprolol tartrate 12.5mg for now. If BP tolerates, should be shifted to ToprolXL at discharge. Discussed Lifevest for prevention of SCD given his severe CMY. Patient would like to proceed with LifeVest. Order placed. Follow up echo in 3 months to reassess LV function <IRAJ Bartholomew - Last Filed: 11/07/22 10:51> (2) Non-ST elevation [place] (NSTEMI): Code(s): I21.4 - Non-ST elevation (NSTEMI) myocardial infarction <IRJA Bartholomew - Last Filed: 11/07/22 10:51> Status: Acute <IRAJ Bartholomew - Last Filed: 11/07/22 10:51> Assessment and Plan: Not related to ACS/acute plaque rupture. Related to above. <IRAJ Bartholomew - Last Filed: 11/07/22 10:51> (3) Pulmonary edema: Qualifiers: Chronicity: acute Qualified Code(s): J81.0 - Acute pulmonary edema <IRAJ Bartholomew - Last Filed: 11/07/22 10:51> Code(s): J81.1 - Chronic pulmonary edema <IRAJ Bartholomew - Last Filed: 11/07/22 10:51> Status: Acute <IRAJ Bartholomew - Last Filed: 11/07/22 10:51> Assessment and Plan: Likely secondary to hypertensive urgency presentation. Resolved. <IRAJ Bartholomew - Last Filed: 11/07/22 10:51> (4) Hypertensive urgency: Code(s): I16.0 - Hypertensive urgency <IRAJ Bartholomew - Last Filed: 11/07/22 10:51> Status: Acute <IRAJ Bartholomew - Last Filed: 11/07/22 10:51> Assessment and Plan: Patient presented with hypertensive urgency with resulting flash pulmonary edema, acute hypoxic respiratory failure with resulting elevated troponin in setting COVID positivity. BP well controlled at this point. <IRAJ Bartholomew - Last Filed: 11/07/22 10:51> (5) Respiratory failure with hypoxia: Qualifiers: Chronicity: acute Qualified Code(s): J96.01 - Acute respiratory failure with hypoxia <IRAJ Bartholomew - Last Filed: 11/07/22 10:51> Code(s): J96.91 - Respiratory failure, unspecified with hypoxia <IRAJ Bartholomew - Last Filed: 11/07/22 10:51> Status: Acute <LAN BartholomewC - Last Filed: 11/07/22 10:51> Assessment and Plan: Continue O2 supplementation and wean as tolerated. <IRAJ Bartholomew - Last Filed: 11/07/22 10:51> (6) COVID-19: Code(s): U07.1 - COVID-19 <IRAJ Bartholomew - Last Filed: 11/07/22 10:51> Status: Acute <IRAJ Bartholomew - Last Filed: 11/07/22 10:51> Assessment and Plan: Management per critical service. <IRAJ Bartholomew - Last Filed: 11/07/22 10:51> Assessment and Plan: Attending addendum: I agree with the above documentation and plan of care as outlined. <Ronny Martino MD - Last Filed: 11/07/22 14:32> Subjective Date/time seen: 11/07/22 09:26 <IRAJ Bartholomew - Last Filed: 11/07/22 10:51> Interval history: Cardiology follow up for cardiomyopathy Feeling okay today but complains of abdominal and chest pain with deep breathing. No shortness of breath, palpitations. <IRAJ Bartholomew - Last Filed: 11/07/22 10:51> Review of Systems Review of Systems: Remainder of the review of systems is otherwise negative aside from that noted in the HPI. <IRAJ Bartholomew - Last Filed: 11/07/22 10:51> All systems reviewed & are unremarkable except as noted in HPI and below <IRAJ Bartholomew - Last Filed: 11/07/22 10:51> Constitutional: Constitutional: Reports as per HPI and Reports no
[2022-11-07 10:48] LABS: Vancomycin Trough 11.5 ug/mL (10.0-20.0)
--- NOTE | 2022-11-07 11:19 | PC.NURSE ---
To Radiology per wheelchair. O2 at 2L with tele monitor and continuous pulse ox.
--- NOTE | 2022-11-07 12:34 | PC.NURSE ---
Pt returned to room with tele monitor. All needs met at this time.
[2022-11-07] MEDS: ONDANSETRON INJ 4 MG/2 ML VIAL IV PUSH (12:50)
--- NOTE | 2022-11-07 13:45 | PM.IMPN ---
Progress Note: A&P Assessment and Plan (1) Sepsis: Code(s): A41.9 - Sepsis, unspecified organism Status: Acute Assessment and Plan: Patient with sepsis, elevated WBC count, abdominal pain, elevated LFTs and total bilirubin -11/05 blood cultures: Growing Gram-positive cocci in clusters 1/2 bottles -11/05 MRSA culture negative -continue Zosyn and vancomycin (11/06) -elevated LFTs and total bilirubin, discussed with surgery, HIDA scan has been ordered to rule out bile leak -blood pressures are stable Chest x-ray this morning shows clear lungs (2) Cardiomyopathy: Code(s): I42.9 - Cardiomyopathy, unspecified Status: Acute Assessment and Plan: Patient presented with chest pain, shortness of breath a status post laparoscopic surgery on 11/05/2022 -elevated troponins, questionable NSTEMI -11/06/2022 cardiac catheterization showed no angiographic evidence of coronary artery disease. For LV systolic function with global EF 20-25%. Angiographic appearance suggestive of reverse takotsubo cardiomyopathy -significant cardiomyopathy, currently on IV metoprolol, once he starts taking p.o. will require heart failure management medications per guidelines -will leave up to Cardiology to add Gerson-I/Arb, diuretics (3) Hypertensive urgency: Code(s): I16.0 - Hypertensive urgency Status: Acute Assessment and Plan: RESOLVED Patient presented with hypertension, tachycardia, shortness of breath -was found to be in hypertensive urgency, along with pulmonary edema and chest pain -patient was started on nitroglycerin infusion for blood pressure control along with improvement in chest pain -patient also had acute hypoxic respiratory failure, patient he was on non-rebreather, then placed on BiPAP -currently on 2 L nasal cannula with adequate O2 sats -patient on hydrochlorothiazide at home -will initiate oral medications once patient starts taking p.o. (4) Pulmonary edema: Qualifiers: Chronicity: acute Qualified Code(s): J81.0 - Acute pulmonary edema Code(s): J81.1 - Chronic pulmonary edema Status: Acute Assessment and Plan: RESOLVED Pulmonary edema likely related to hypertensive urgency, status post Lasix x1 in the ER and the Lasix x1 on 11/06 in the ICU -urine output has been adequate -patient currently on 2 L nasal cannula with adequate O2 sats -11/07 chest x-ray this morning: Clear lungs (5) Non-ST elevation [place] (NSTEMI): Code(s): I21.4 - Non-ST elevation (NSTEMI) myocardial infarction Status: Acute Assessment and Plan: Patient presented with chest pain, tachycardia, hypoxia -EKG showed peaked T-waves diffusely, no ST elevation but ST depression in V4 to V6 -troponins are elevated, along with chest pain, shortness of breath, patient classifies as an NSTEMI, was started on infusion per Cardiology -status post cardiac angiography as above -continue aspirin 81 mg -continue IV metoprolol, will switch to p.o. when he is able to take medications orally -appreciate cardiology and the patient (6) Hypoxia: Code(s): R09.02 - Hypoxemia Status: Acute Assessment and Plan: Hypoxia has resolved, patient currently on 2 L nasal cannula, not tachypnic -continue to monitor (7) COVID-19: Code(s): U07.1 - COVID-19 Status: Acute Assessment and Plan: SARS-CoV-2 PCR was positive, only on 2 L nasal cannula which could be likely related to pulmonary edema -will hold dexamethasone and remdesivir for now (8) Abdominal pain: Code(s): R10.9 - Unspecified abdominal pain Status: Acute Assessment and Plan: Patient also complains of periumbilical and epigastric abdominal pain -11/05/2022 status post laparoscopic cholecystectomy at [facility] by Dr. Abarca -elevated bilirubin and LFTs, patient to obtain HIDA scan today to rule out bile leak Update: HIDA scan positive for possible bile leak, GI is recommending ERCP, anest
[2022-11-07] MEDS: PERFLUTREN LIPID MICROSPHERES 1.5 ML VIAL DILUTED TO 10 ML TOTAL VOLUME IV PUSH (15:00)
--- NOTE | 2022-11-07 15:28 | IVDEFINITY ---
Prior to administration of IV Definity the patient was educated on the risks and benefits of the imaging enhancing agent including potential adverse side effects. The patient verbalized understanding. Allergies were verified. No exclusion criteria were identified and at least one of the following inclusion criteria were met: 1) physician request, 2) patient technically difficult to image (per the [place] [employer] guidelines of two or more segments not discernable within the apical view), or 3) questionable left ventricular function. ?
--- NOTE | 2022-11-07 17:35 | WPDGICN ---
Assessment and Plan Assessment and plan (1) Bile leak: Code(s): K83.9 - Disease of biliary tract, unspecified Status: Acute Assessment and Plan: Patient felt have bile leak after recent lap choly. Cholecystectomy performed on 11/04/2022. HIDA scan today suggest bile leak. Patient appears to have abdominal pain on this basis. I was consulted for possible ERCP. Upon scheduling this the anesthesia service feels that with their prior experience with the patient and now having 20% ejection fraction. The new cardiac events noted subsequent to this surgery the given his high risk he should be transferred to a tertiary care center for procedure. We will therefore request surgery to [facility] or similar tertiary care service for treatment of his bile leak. This is discussed with Dr. Henao who agrees and Anesthesia who feels this is best. (2) Non-ST elevation [place] (NSTEMI): Code(s): I21.4 - Non-ST elevation (NSTEMI) myocardial infarction Status: Acute Assessment and Plan: Cardiology following basis. Patient felt to have a reverse Takotsubo physiology. significant congestive heart failure present. % ejection fraction identified. (3) Pulmonary edema: Qualifiers: Chronicity: acute Qualified Code(s): J81.0 - Acute pulmonary edema Code(s): J81.1 - Chronic pulmonary edema Status: Acute Assessment and Plan: Patient with admitted with hypertensive crisis difficulty breathing respiratory failure and pulmonary edema. This appears be improving with diuresis. (4) CHF (congestive heart failure): Code(s): I50.9 - Heart failure, unspecified Status: Acute (5) COVID-19: Code(s): U07.1 - COVID-19 Status: Acute Assessment and Plan: Patient felt to have active covert 19 infection. (6) Marijuana user: Code(s): F12.90 - Cannabis use, unspecified, uncomplicated Status: Acute Assessment and Plan: Patient with significant use of marijuana. Some concern over possible methamphetamine use as well. GI Consult Note Consult date/time: 11/07/22 17:35 Reason for consult: Bile leak HPI: Jayant Toney is a 42 year old male I am asked to see because of bile eat after recent lap choly. Nanette chin apparently presented with acute cholangitis and gallstones on 11/04/2022 underwent lap choly. Patient was lot be discharged home. Patient returned to the hospital the following day. Patient was found to be in pulmonary edema with congestive heart failure. Patient was felt to have a non ST elevated CO. Cardiac catheterization was ultimately performed on 11/06 this revealed clean coronaries. Patient was felt to have reversed Takotsubo physiology. Patient has severe congestive heart failure with 20% ejection fraction. Admitted with hypertensive crisis. Patient has been diuresing. Initially presented with shortness of breath and chest pain. Today has abdominal pain. Today a HIDA scan was performed suggesting a bile leak. Patient has significant substance abuse issues in the past. There is concern over meth Meth use. Review of Systems Review of Systems: Review of systems noncontributory. [facility] Past Medical History Medical History ALONDRA (acute kidney injury) Depression Essential (primary) hypertension Former smoker Hypertension Hypertriglyceridemia Kidney stones Tobacco abuse Surgical History Surgical History History of laparoscopic cholecystectomy Social History Social History Smoking packs per day: 2 Smoking cigarettes per day: 40.0 Years smoked: 30 Smoking pack-years: 60.00 Smoking status: Former smoker Second hand tobacco smoke exposure: No Smoking end date: 11/07/19 Alcohol intake: never Drinks per week: 10 Alcohol use details: NONE SINCE
[2022-11-07] MEDS: METOPROLOL TARTRATE 12.5 MG TABLET PO ×2 (20:07→21:59)
[2022-11-08] VITALS: BP 115/96; PULSE 117
[2022-11-08 00:56] VITALS: BP 136/111; PULSE 133
[2022-11-08] MEDS: METOPROLOL TARTRATE INJ 5 MG/5 ML VIAL IV PUSH (00:56)
--- NOTE | 2022-11-27 12:28 | PM.TDS ---
Transfer Discharge Sum: Prov Provider Date of admission: 11/06/22 00:26 Primary care physician: Gonzales Mustafa, [employer] Admitting clinician: Amando Villasenor MD Consults: 11/06/22 00:27 Consult to Physician Routine Comment: Consulting Provider: Destini Mcgovern Reason for consultation: Elevated troponin Has provider been notified: Yes 11/06/22 07:56 Consult to Physician Routine Comment: spoke with Vita @[id number],) Consulting Provider: Francisca Abarca call center receptionist/MD group to consult: Surgery- DR. Abarca Reason for consultation: Laparoscopic cholecystectomy on 11/05/2022 Has provider been notified: Yes 11/07/22 Consult to Physician Routine Comment: Consulting Provider: Jose Rogel call center receptionist/MD group to consult: GI Reason for consultation: Bile leak - ERCP Has provider been notified: Yes 11/07/22 10:20 Care Coordination Consult Routine Comment: Reason for Consult:: LifeVest DS: Admitting Diagnosis Discharge Date 11/08/22 Admitting Diagnosis chest pain DS: Discharge Diagnosis Discharge Diagnosis (1) Sepsis: Code(s): A41.9 - Sepsis, unspecified organism Status: Acute Assessment and Plan: Patient with sepsis, elevated WBC count, abdominal pain, elevated LFTs and total bilirubin -11/05 blood cultures: Growing Gram-positive cocci in clusters 1/2 bottles -11/05 MRSA culture negative -continue Zosyn and vancomycin (11/06) -elevated LFTs and total bilirubin, discussed with surgery, HIDA scan has been ordered to rule out bile leak -blood pressures are stable Chest x-ray this morning shows clear lungs (2) Cardiomyopathy: Qualifiers: Cardiomyopathy type: other Qualified Code(s): I42.8 - Other cardiomyopathies Code(s): I42.9 - Cardiomyopathy, unspecified Status: Acute Assessment and Plan: Patient presented with chest pain, shortness of breath a status post laparoscopic surgery on 11/05/2022 -elevated troponins, questionable NSTEMI -11/06/2022 cardiac catheterization showed no angiographic evidence of coronary artery disease. For LV systolic function with global EF 20-25%. Angiographic appearance suggestive of reverse takotsubo cardiomyopathy -significant cardiomyopathy, currently on IV metoprolol, once he starts taking p.o. will require heart failure management medications per guidelines -will leave up to Cardiology to add Gerson-I/Arb, diuretics (3) Hypertensive urgency: Code(s): I16.0 - Hypertensive urgency Status: Acute Assessment and Plan: RESOLVED Patient presented with hypertension, tachycardia, shortness of breath -was found to be in hypertensive urgency, along with pulmonary edema and chest pain -patient was started on nitroglycerin infusion for blood pressure control along with improvement in chest pain -patient also had acute hypoxic respiratory failure, patient he was on non-rebreather, then placed on BiPAP -currently on 2 L nasal cannula with adequate O2 sats -patient on hydrochlorothiazide at home -will initiate oral medications once patient starts taking p.o. (4) Pulmonary edema: Qualifiers: Chronicity: acute Qualified Code(s): J81.0 - Acute pulmonary edema Code(s): J81.1 - Chronic pulmonary edema Status: Acute Assessment and Plan: RESOLVED Pulmonary edema likely related to hypertensive urgency, status post Lasix x1 in the ER and the Lasix x1 on 11/06 in the ICU -urine output has been adequate -patient currently on 2 L nasal cannula with adequate O2 sats -11/07 chest x-ray this morning: Clear lungs (5) Non-ST elevation UT (NSTEMI): Code(s): I21.4 - Non-ST elevation (NSTEMI) myocardial infarction Status: Acute Assessment and Plan: Patient presented with chest pain, tachycardia, hypoxia -EKG showed peaked T-waves diffusely, no ST elevation but ST depression in V4 to V6 -troponins are elevated, along with chest pain, shortness of breath, patient classifi
== END 2022-11-08 02:00 | disposition short-term general hospital (02) | DRG 720 ==
LOC: ANHED 11-06 00:25 → ANHICU 11-06 01:51
PROVIDERS: Emergency Medicine; Internal Medicine; Specialist; Admitting Provider Internal Medicine; Emergency Provider Student in an Organized Health Care Education/Training Program; PCP Nurse Practitioner Family; Visit Provider Student in an Organized Health Care Education/Training Program
PROC: 4A023N7 Measurement of Cardiac Sampling and Pressure, Left Heart, Percutaneous Approach (ICD-10-PCS; CPT 93452; principal; 2022-11-06 13:00)
DX: T81.44XA Sepsis following a procedure, initial encounter (principal); J95.821 Acute postprocedural respiratory failure; U07.1 COVID-19; J81.0 Acute pulmonary edema; A41.9 Sepsis, unspecified organism; K83.8 Other specified diseases of biliary tract; K91.89 Other postprocedural complications and disorders of digestive system; I51.81 Takotsubo syndrome; B95.8 Unspecified staphylococcus as the cause of diseases classified elsewhere; K83.9 Disease of biliary tract, unspecified; E78.1 Pure hyperglyceridemia; F12.90 Cannabis use, unspecified, uncomplicated; F32.A Depression, unspecified; I50.9 Heart failure, unspecified; I16.0 Hypertensive urgency; Z90.49 Acquired absence of other specified parts of digestive tract; Z87.891 Personal history of nicotine dependence; Z87.442 Personal history of urinary calculi
CPT/HCPCS: 36415; 36600; 71045; 71275; 74175; 78226; 80053; 80202; 81001; 82248; 82375; 82565; 82805; 83036; 83050; 83605; 83690; 83735; 83880; 84100; 84443; 84484; 85025; 85610; 85730; 86140; 86850; 86900; 86901; 87040; 87081; 87147; 87181; 87186; 87636; 93005; 93458; 96365; 96367; 96375; 96376; 99285; A9270; A9537; C1887; C1894; C8929; C9113; J0461; J0612; J0692; J1170; J1644; J1940; J2250; J2305; J2405; J2543; J3010; J3370; J3475; J7040; Q9957; Q9967

== ENCOUNTER 2022-11-18 17:27 | Emergency (ER) | payer OTHER, SELFPAY ==
[2022-11-18 18:03] VITALS: BP 157/110; PULSE 130; RESP 16; TEMP 36.6; O2SAT 98
[2022-11-18 18:30] LABS: Basophils Absolute Auto 0.1 K/mm3 (0.0-0.1); Basophils Percent Auto 0.7 % (0.2-1.2); Eosinophils Absolute Auto 0.3 K/mm3 (0-0.3); Eosinophils Percent Auto 1.6 % (0-4.4); Hematocrit 37.8 % (42.0-52.0); Hemoglobin 12.4 g/dL (14.0-18.0); Immature Granulocyte Absolute 0.11 K/mm3 (0.00-0.031); Immature Granulocyte Percent A 0.7 % (0-0.5); Lymphocytes Absolute Auto 1.58 K/mm3 (0.9-3.2); Lymphocytes Percent Auto 9.5 % (18.3-44.2); Mean Corpuscular HGB Conc 32.8 g/dl (32-36); Mean Corpuscular Hemoglobin 25.1 pg (26-34); Mean Corpuscular Volume 76.4 fl (80-100); Mean Platelet Volume 8.8 fl (7.4-10.4); Monocytes Absolute Auto 1.1 K/mm3 (0.1-0.6); Monocytes Percent Auto 6.6 % (2.6-8.5); Neutrophils Absolute Auto 13.4 K/mm3 (1.3-6.7); Neutrophils Percent Auto 80.9 % (45.5-73.1); Platelet Count Result 614 k/mm3 (150-375); Red Blood Count 4.95 M/mm3 (4.6-6.20); Red Cell Distribution Width 14.8 % (11.5-14.5); White Blood Count 16.6 K/mm3 (4.5-10.0)
[2022-11-18 18:35] LABS: Appearance Urine Clear (Clear); Bacteria Urine None Seen /hpf; Bilirubin Urine Negative (Negative); Blood Urine 1+ (Negative); Color Urine Yellow (Yellow); Glucose Urine UA Negative (Negative); Ketones Urine Negative (Negative); Leukocyte Esterase Ur 1+ LEU/UL (Negative); Nitrate Urine Negative (Negative); Non Pathogenic Casts 0-2; Protein Urine Trace mg/dL (Negative); Specific Grav Ur 1.007 (1.001-1.035); Squamous Epithelial Cell Urine None seen /hpf (Few); Urobilinogen Urine 0.2 mg/dL (<2.0)
[2022-11-18 18:44] LABS: Add Urine Microscopic? YES
[2022-11-18 18:55] LABS: Alanine Aminotransferase 24 U/L (6-50); Albumin Level 4.2 g/dL (3.5-5.1); Alkaline Phosphatase 131 U/L (38-126); Anion Gap 7 mmol/L (8-16); Aspartate Amino Transferase 33 U/L (17-59); Blood Urea Nitrogen 28 mg/dL (9-20); Calcium 9.3 mg/dL (8.4-10.2); Carbon Dioxide 27 mmol/L (22-30); Chloride 102 mmol/L (98-107); Estimated CRCL calculation 21 ml/min; Estimated Glomerular Filt Rate 15; Glucose 115 mg/dL (65-110); Lipase 202 U/L (23-300); Potassium 4.1 mmol/L (3.4-5.0); Sodium 136 mmol/L (137-145)
== END 2022-11-18 18:00 | disposition left against medical advice (07) ==
PROVIDERS: Emergency Provider Emergency Medicine; PCP Nurse Practitioner Family
DX: R11.2 Nausea with vomiting, unspecified (principal)
CPT/HCPCS: 36415; 80053; 81001; 83690; 85025; 87086; 99199

== ENCOUNTER 2022-11-19 10:53 | Outpatient (CLI) | payer OTHER, SELFPAY ==
[2022-11-19 11:55] LABS: Basophils Absolute Auto 0.2 K/mm3 (0.0-0.1); Basophils Percent Auto 0.9 % (0.2-1.2); Eosinophils Absolute Auto 0.3 K/mm3 (0-0.3); Eosinophils Percent Auto 1.7 % (0-4.4); Hematocrit 39.7 % (42.0-52.0); Hemoglobin 12.6 g/dL (14.0-18.0); Immature Granulocyte Absolute 0.14 K/mm3 (0.00-0.031); Immature Granulocyte Percent A 0.8 % (0-0.5); Lymphocytes Percent Auto 8.4 % (18.3-44.2); Mean Corpuscular HGB Conc 31.7 g/dl (32-36); Mean Corpuscular Hemoglobin 24.9 pg (26-34); Mean Corpuscular Volume 78.5 fl (80-100); Mean Platelet Volume 9.3 fl (7.4-10.4); Monocytes Percent Auto 6.2 % (2.6-8.5); Neutrophils Absolute Auto 13.6 K/mm3 (1.3-6.7); Platelet Count Result 668 k/mm3 (150-375); Red Blood Count 5.06 M/mm3 (4.6-6.20); Red Cell Distribution Width 14.9 % (11.5-14.5); White Blood Count 16.7 K/mm3 (4.5-10.0)
[2022-11-19 12:27] LABS: Alanine Aminotransferase 22 U/L (6-50); Albumin Level 4.2 g/dL (3.5-5.1); Alkaline Phosphatase 124 U/L (38-126); Aspartate Amino Transferase 34 U/L (17-59); Blood Urea Nitrogen 28 mg/dL (9-20); Calcium 9.6 mg/dL (8.4-10.2); Carbon Dioxide 28 mmol/L (22-30); Chloride 97 mmol/L (98-107); Estimated Glomerular Filt Rate 15; Glucose 126 mg/dL (65-110)
[2022-11-19 12:28] LABS: Anion Gap 11 mmol/L (8-16); Sodium 136 mmol/L (137-145)
== END 2022-11-19 10:54 | disposition home or self-care (01) ==
LOC: ANHLAB 10:54
PROVIDERS: PCP Nurse Practitioner Family; Visit Provider Surgery
DX: R11.2 Nausea with vomiting, unspecified (principal); K81.0 Acute cholecystitis
CPT/HCPCS: 36415; 80053; 85025

== ENCOUNTER 2022-11-19 14:15 | Inpatient (IN) | payer OTHER, SELFPAY ==
[2022-11-19] VITALS (24 sets, daily range): BP systolic 130–164; BP diastolic 89–119; PULSE 91–115; RESP 14–23; O2SAT 95–100
--- NOTE | ~2022-11-19 | CT_ITS ---
EXAMINATION: CT abdomen pelvis wo con DATE: 11/19/2022 14:42 INDICATION: Abdominal pain TECHNIQUE: Computed tomography (CT) of the abdomen and pelvis was performed without intravenous contr ast. Automated exposure control and iterative reconstruction technique were employed. The dose-length product was 339.88 mGy-cm. COMPARISON: CT dated 11/05/2022 and 10/13/2022 FINDINGS: Lung bases are clear. No pleural effusion. Heart size is normal. Small pericardial effusion. Postoper ative change of recent cholecystectomy. There are a few tiny foci of gas at the peripheral gallbladde r fossa and more cephalad along the left chio hepatis. There is some stranding at the gallbladder fo ssa but no evident abscess or biloma. Liver is normal with no pneumobilia. Common bile duct stent is present. Spleen, pancreas, bilateral adrenal glands and right kidney are normal. Small amount of rim calcification at the periphery of an 8 mm low-attenuation left renal cyst. 1 mm nonobstructing stone at a lower pole calyx of the left kidney. Bowels including the appendix are normal. Bladder is normal . Prostatomegaly measuring 4.6 x 3.2 cm. No free intraperitoneal gas or fluid. No pathologically enla rged abdominal or pelvic lymphadenopathy. Likely laparoscopy port tracks parosteal subcutaneous fat i n the right upper quadrant. Chronic compression fracture along the superior endplate of T11. IMPRESSION: 1. A few small foci of gas at the chio hepatis and gallbladder fossa post recent cholecystectomy wit h common bile duct stent placement. This suggests a persistent leak of the biliary tree potentially a t the site of the ligated cystic duct with bile leak present on HIDA scan performed on 11/05/2022. No e vident abscess or biloma. 2. Small pericardial effusion. 3. 1 mm nonobstructing left renal stone. Reviewed, dictated and finalized at location A. IMPRESSION: 1. A few small foci of gas at the chio hepatis and gallbladder fossa post rece nt cholecystectomy with common bile duct stent placement. This suggests a persi stent leak of the biliary tree potentially at the site of the ligated cystic du ct with bile leak present on HIDA scan performed on 11/05/2022. No evident absces s or biloma. 2. Small pericardial effusion. 3. 1 mm nonobstructing left renal stone.
--- NOTE | ~2022-11-19 | US_ITS ---
EXAMINATION: US renal BI DATE: 11/20/2022 09:13 INDICATION: Acute kidney injury TECHNIQUE: Multiple grayscale and Doppler ultrasound images of the kidneys were obtained. COMPARISON: CT, 11/19/2022 FINDINGS: The right kidney measures 12.2 x 5.2 x 5.6 cm. The left kidney measures 11.6 x 5.1 x 5.1 cm . The kidneys demonstrate normal parenchymal echogenicity. There is an 11 mm cyst of the left kidney with peripheral calcification. There is no hydronephrosis. The bladder is normal. IMPRESSION: 1. Unremarkable kidneys without hydronephrosis. Reviewed, dictated and finalized at location D.
--- NOTE | 2022-11-19 14:28 | ED.RECABL ---
HPI - Recheck/Abnormal Lab/Rx General Chief Complaint: Recheck/Abnormal Lab/Rx Stated Complaint: abnormal labs Time Seen by Provider: 11/19/22 14:27 History of Present Illness HPI narrative: Patient is a 42-year-old male with recent history of sepsis after a cholecystectomy complicated by takotsubu cardiomyopathy with EF of 20-25%, here with abnormal labs. Patient notes that he had a follow up appointment with his general surgeon today, they noted abnormal lab work and referred him into the ED for further evaluation. Patient notes that he has struggled with nausea since his recent hospitalization. He has been taking zofran prior to meals and largely drinking chicken noodle soup broth and oral fluids. he notes that a couple days ago he made a mistake of eating [place] food and has had persistent nausea and vomiting since that time. he notes he has had a normal urinary output but has continued to struggle with this nausea. He came in yesterday for his symptoms but left prior to being seen. Today his surgeon called due to his abnormal lab work, and recommended he come into the ED. No shortness of breath, no leg swelling. He has some persistent abdominal pain which is diffuse and seems to be located around his surgical site. No fever or chills. Related Data Home Medications Medication Instructions Recorded Confirmed escitalopram oxalate 10 mg tablet 10 mg PO DAILY 10/10/22 11/19/22 hydrochlorothiazide 25 mg tablet 25 mg PO DAILY 10/10/22 11/19/22 dicyclomine 20 mg tablet 20 mg PO TID 11/06/22 11/19/22 ondansetron 4 mg disintegrating 8 mg PO Q6H PRN nausea and vomiting 11/06/22 11/19/22 tablet Allergies Allergy/AdvReac Type Severity Reaction Status Date / Time No Known Allergies Allergy Verified 11/19/22 19:31 Review of Systems Review of Systems: CONSTITUTIONAL: Denies fever, chills, or sweats. EYES: Denies visual changes, redness, or discharge. ENT: Denies rhinorrhea, congestion, sore throat, or otalgia. CARDIOVASCULAR: Denies chest pain, palpitations, or edema. RESPIRATORY: Denies cough or dyspnea. GASTROINTESTINAL: continued abdominal pain, nausea and vomiting, no diarrhea. GENITOURINARY: Denies dysuria or hematuria. Normal urinary output. SKIN: Denies rash or itching. MUSCULOSKELETAL: Denies back pain, joint pain, or myalgia. NEUROLOGIC: Denies headache, numbness, or weakness. [facility] Past Medical History Medical History (Updated 11/19/22 @ 22:46 by Yeimi Sue MD) ALONDRA (acute kidney injury) Depression Essential (primary) hypertension Former smoker Hypertension Hypertriglyceridemia Kidney stones Tobacco abuse Surgical History Surgical History (Updated 11/19/22 @ 16:40 by NIKKIE Naranjo) History of ERCP History of laparoscopic cholecystectomy on 11/05/22 [facility] Social History Social History Smoking packs per day: 2 Smoking cigarettes per day: 40.0 Years smoked: 30 Smoking pack-years: 60.00 Smoking status: Former smoker Second hand tobacco smoke exposure: No Smoking end date: 11/07/19 Alcohol intake: never Drinks per week: 10 Alcohol use details: NONE SINCE GALLBLADDER ISSUES, 2-3 BEERS/DAY PRIOR Substance use: current Substance use type: marijuana Lack of Transportation: No Lack of Food: Never True Current Housing: I Have Housing Concerned About Future Housing: No Difficulty Paying Gas/Electric Bills: No Difficulty Paying for Meds: No Currently Unemployed: YES Education: High School Diploma/GED Difficulty w/ Childcare or Family Care: No Living arrangements: with family Spiritual care concerns: No Exam Narrative: GENERAL: Well-appearing, well-nourished, and in no acute distress. HEAD: Normocephalic, atraumatic. EYES: PERRLA and EOMI. ENT: Nares clear. Mucous membranes moist. NECK: Supple. CHEST: Clear to auscultation. No respiratory distress. HEART: Regular rate and rhythm. Normal per
[2022-11-19] MEDS: ONDANSETRON INJ 4 MG/2 ML VIAL IV PUSH (14:54)
--- NOTE | 2022-11-19 16:19 | PM.CNGS ---
Assessment and Plan Assessment and plan (1) Postoperative bile leak: Code(s): K91.89 - Other postprocedural complications and disorders of digestive system; K83.8 - Other specified diseases of biliary tract Status: Acute Assessment and Plan: CT scan reviewed with the radiologist and discussed with Dr. Abarca. Patient appears to have we a small persistent bile leak that could be from the location of the cystic duct clip. He is not having any abdominal pain and his total bilirubin has returned to normal. There is no fluid collection that would be amenable to drainage. Continue to monitor, no indication for surgical intervention at this time. (2) History of laparoscopic cholecystectomy: Code(s): Z90.49 - Acquired absence of other specified parts of digestive tract Status: Resolved (3) Cardiomyopathy: Code(s): I42.9 - Cardiomyopathy, unspecified Status: Acute (4) Acute renal failure: Code(s): N17.9 - Acute kidney failure, unspecified Status: Acute (5) History of biliary stent insertion: Code(s): Z98.890 - Other specified postprocedural states Status: Acute Assessment and Plan: S/p ERCP at [facility], can request records if patient is admitted to [facility], but there is a possibility he could be transferred back to [facility]. Plan I have discussed the patient's case and plan of care with Dr. Abarca. History of Present Illness Consult details Consult date: 11/19/22 Reason for consult: other (S/p laparoscopic cholecystectomy, possible bile leak) Requesting physician: Yeimi Sue MD Narrative: This is a 42-year-old man who underwent a laparoscopic cholecystectomy on 11/05/2022 for acute cholecystitis. He was discharged home and return to the ER later that evening with chest pain. He was found to have an NSTEMI and underwent cardiac catheterization and found to have no angiographic evidence of significant coronary artery disease, very poor left ventricular systolic function, angiographic appearance suggestive of reverse takotsubo cardiomyopathy, and global ejection fraction around 20-25%. He developed hyperbilirubinemia and subsequently had a HIDA scan that confirmed a bile leak. Decision was made to transfer the patient to [facility] for ERCP due to high risks for additional procedures with his cardiac status. Reportedly, the patient had an ERCP with stent placement at [facility]. He was in acute renal failure and in the ICU. It sounds as though he left against medical advice. He was feeling poorly at home and had nausea and vomiting over the past few days. He then came in for a follow-up with Dr. Abarca in our office today. Labs were ordered and he was found to have acute renal failure with a creatinine of 4.3, and persistent leukocytosis. [place] white blood [place] count [place] [id number], which is down from when he was transferred on 11/07/2022 [place] [address]. He was called with the lab results and directed to the ER. He is now seen in the ER. He had a CT scan of abdomen and pelvis that showed a few small foci of gas at the chio hepaticus and gallbladder fossa post recent cholecystectomy with common bile duct stent, suggestive of a persistent leak of the biliary tree potentially at the side of the ligated cystic duct. No evidence of abscess or biloma. He is denying any abdominal pain at this time. He reports some periumbilical pain when vomiting, but this improves when he is resting. Review of Systems Review of Systems: All systems reviewed & are unremarkable except as noted in HPI and below Constitutional: Constitutional: Reports no additional constitutional complaints, Denies chills, Denies fatigue and Denies fever(s) Eyes: Eyes: Reports no additional eye complaints ENT: Reports system reviewed and no additional complaints, except as documented and Denies dizziness Cardiovascular: Cardiovascular: Reports no additional cardiovascular co
[2022-11-19] MEDS: SODIUM CHLORIDE 0.9% IV 1,000 ML 150 ML IV CONT (17:46)
--- NOTE | 2022-11-19 23:29 | PM.IMHP ---
H&P: HPI History of Present Illness Date/Time: 11/19/22 22:30 Chief Complaint: Abnormal labs. Narrative: This is a 42-year-old male with hypertension who presented to the emergency department for evaluation of abnormal labs. His recent medical history has been complicated. He was hospitalized in mid September with acute cholecystitis and had a laparoscopic cholecystectomy done as an outpatient on 11/05/2022. He returned to the emergency department later that evening with chest pain and was found to have a non STEMI. Though significant coronary artery disease was noted on angiography however there was an appearance suggestive of reverse takotsubo cardiomyopathy with severe left ventricular systolic dysfunction and global EF around 20 to 25%. He developed hyperbilirubinemia and a subsequent HIDA scan confirmed bile leak. He was transferred to [facility] for ERCP due to high risk for additional procedures with his cardiac status. There it sounds as though he had an ERCP with a stent placement. He was hospitalized in their ICU with acute renal failure. At some point time he left against medical advice. He disease primary care provider in follow-up however and he was set up with a LifeVest. He saw Dr. Abarca in follow-up today at which time he reported ongoing issues with nausea and vomiting. Labs were done and he was sent to the ED as his creatinine was 4.40. Transfer was initiated to [facility] given his complicated history however there fallen not taking transfers. ED physician eventually spoke with someone affiliated with [facility] and they were able to tell us that his creatinine at the time he left against medical advice was 5.8 so that is improving. Ejection fraction on KYARA on 11/10/2022 was 55 to 60%. With these numbers it is felt that he will be safe to state [place] for hydration and close monitoring. At the time my evaluation his only complaint is that of mild nausea however he is thirsty and ready to try something the eat. He has not noticed any change in urine output or decrease in urine output. He denies fever, chills, sweats, lightheadedness, dizziness, chest pain, shortness a breath, orthopnea, paroxysmal nocturnal dyspnea, diarrhea, and lower extremity edema. Review of Systems Review of Systems: Twelve systems were reviewed and are negative except for as per HPI. [facility] Past Medical History Medical History (Updated 11/19/22 @ 23:52 by Claudia Barraza PA-C) Depression Former smoker Hypertension Hypertriglyceridemia Kidney stones Takotsubo cardiomyopathy Findings suggestive of reverse takotsubo cardiomyopathy on cardiac catheterization on 11/06/2022. EF was 20 to 25% at that time, most recent EF on KYARA 11/10/2022 was 55%. Tobacco abuse Surgical History Surgical History (Updated 11/19/22 @ 23:52 by Claudia Barraza PA-C) History of biliary stent insertion History of cardiac catheterization History of endoscopic retrograde cholangiopancreatography History of laparoscopic cholecystectomy (11/05/22) Family History Family History Other Family history non-contributory Social History Social History (Updated 11/19/22 @ 23:47 by Claudia Barraza PA-C) Social History: Surrogate medical decision maker: Venita Bee, significant other. Code status: Full code. Smoking packs per day: 2 Smoking cigarettes per day: 40.0 Years smoked: 30 Smoking pack-years: 60.00 Smoking status: Former smoker Second hand tobacco smoke exposure: No Smoking end date: 11/07/19 Alcohol intake: never Drinks per week: 10 Alcohol use details: None since hospitalization in September 2022. Substance use: current Substance use type: marijuana Lack of Transportation: No Lack of Food: Never True Current Housing: I Have Housing Concerned About Future Housing: No Difficulty Paying Gas/Electric Bills: No Difficulty Paying for Meds: No Currently Unemployed: Y
[2022-11-20] VITALS: BP 167/106; PULSE 117; RESP 20; TEMP 36.9; O2SAT 97
--- NOTE | 2022-11-20 00:09 | ADMGEN ---
This patient, Jayant Toney, was admitted to [facility] Surg Room 302-01. Patient/family oriented to hospital policies and general routines including ID bracelet, bed and alarms, visiting hours, pain management, procedures, bathroom and other care routines, personal items, smoking policy, room service/diet, and visiting hours. Information on how to activate the Rapid Response Team has been discussed. Patient/Family are encouraged to report perceived risks to care and to ask questions if they do not understand what they are told or what they should do.
[2022-11-20 00:35] VITALS: PULSE 103; RESP 18; O2SAT 98
[2022-11-20] MEDS: ONDANSETRON INJ 4 MG/2 ML VIAL IV PUSH ×3 (00:52→17:37)
[2022-11-20] MEDS: LACTATED RINGERS 1,000 ML 75 ML IV CONT ×2 (00:52→17:38)
[2022-11-20 00:58] LABS: Immature Reticulocyte Fraction 7.7 % (3.0-15.9); Reticulocyte Hemoglobin Conten 27.2 pg (28.2-35.7); Reticulocyte Percent 1.48 % (0.7-4.3); Reticulocytes Absolute 0.07 M/mm3 (0.02-0.1)
[2022-11-20 00:59] VITALS: BMI 22.1
[2022-11-20 01:14] LABS: Anion Gap 8 mmol/L (8-16); Blood Urea Nitrogen 30 mg/dL (9-20); Calcium 8.9 mg/dL (8.4-10.2); Carbon Dioxide 28 mmol/L (22-30); Chloride 99 mmol/L (98-107); Estimated CRCL calculation 24 ml/min; Estimated Glomerular Filt Rate 18; Glucose 134 mg/dL (65-110); Potassium 3.9 mmol/L (3.4-5.0); Sodium 135 mmol/L (137-145)
[2022-11-20 01:34] LABS: Iron 61 ug/dL (49-181); Percent Iron Saturation 20 % (20-50)
[2022-11-20 04:25] LABS: Folic Acid 6.4 ng/mL (2.76->20)
[2022-11-20 05:46] VITALS: BP 144/101; PULSE 91; RESP 20; TEMP 36.8; O2SAT 100
[2022-11-20 07:13] LABS: Hematocrit 39.9 % (42.0-52.0); Hemoglobin 12.9 g/dL (14.0-18.0); Mean Corpuscular HGB Conc 32.3 g/dl (32-36); Mean Corpuscular Volume 77.2 fl (80-100); Mean Platelet Volume 8.8 fl (7.4-10.4); Platelet Count Result 689 k/mm3 (150-375); Red Blood Count 5.17 M/mm3 (4.6-6.20); Red Cell Distribution Width 14.4 % (11.5-14.5); White Blood Count 17.3 K/mm3 (4.5-10.0)
[2022-11-20 07:28] LABS: Alanine Aminotransferase 23 U/L (6-50); Albumin Level 4.2 g/dL (3.5-5.1); Alkaline Phosphatase 122 U/L (38-126); Anion Gap 8 mmol/L (8-16); Aspartate Amino Transferase 37 U/L (17-59); Blood Urea Nitrogen 31 mg/dL (9-20); Calcium 9.6 mg/dL (8.4-10.2); Carbon Dioxide 30 mmol/L (22-30); Chloride 98 mmol/L (98-107); Estimated CRCL calculation 24 ml/min; Estimated Glomerular Filt Rate 18; Glucose 122 mg/dL (65-110); Potassium 4.6 mmol/L (3.4-5.0); Sodium 136 mmol/L (137-145)
[2022-11-20 09:35] LABS: CRP 3.4 mg/dL (<1.0)
[2022-11-20] MEDS: metroNIDAZOLE 500 MG/ISO 100ML 500 MG/100 ML BAG 100 MG IVPB ×2 (09:38→17:40)
[2022-11-20 09:42] LABS: NT Pro B Type Natriuretic Pept 18000 pg/mL (19.9-100)
[2022-11-20 09:49] LABS: Procalcitonin 0.1 ng/mL
[2022-11-20 09:54] LABS: Erythrocyte Sedimentation Rate 61 mm/hr (0-20)
[2022-11-20 12:18] LABS: Urea Random Urine 238 MG/DL
[2022-11-20 12:19] LABS: Potassium Urine Random 21.3 meq/L; Sodium Urine Random 101 meq/L
[2022-11-20 13:38] VITALS: BP 146/106; PULSE 95; RESP 17; TEMP 37; O2SAT 100
--- NOTE | 2022-11-20 15:38 | P.PNIM_ITS ---
Progress Note: A&P Assessment and Plan (1) Acute kidney injury: Code(s): N17.9 - Acute kidney failure, unspecified Status: Acute Assessment and Plan: * Presented to the emergency department for evaluation of abnormal labs obtained at a follow-up appointment * Stated that the renal function was higher when he left MOBap noted to be 5.6 * BUN/Cr upon admission was 31/3.70 * Continue IV fluids * Trend urine output * Renal dose medications * Avoid nephrotoxic medications (2) Cardiomyopathy: Code(s): I42.9 - Cardiomyopathy, unspecified Status: Acute Assessment and Plan: * He is currently wearing a life vest that was set up by his primary * EF has increased to 50-55% per the echo at [facility] * Cardiology ok with discontinuing the life vest at this time, spoke with Loulou Chavez NP * Continue cardiac monitoring (3) Postoperative bile leak: Code(s): K91.89 - Other postprocedural complications and disorders of digestive system; K83.8 - Other specified diseases of biliary tract Status: Acute Assessment and Plan: * Known leak since the cholecystectomy * mild amount noted on the CT * Labs stable * Continue to trend labs * Stable (4) Leukocytosis: Code(s): D72.829 - Elevated white blood cell count, unspecified Status: Acute Assessment and Plan: * WBC elevated at 16.7 * Currently going up at 17.3 * Started patient on ceftriaxone and flagyl * Continue to trend labs Time Spent With Patient Time: 43 minutes Time with patient: Greater than 35 minutes Subjective Date/time seen: 11/20/22 1215 Interval history: 11/20/221214 Patient stated that he is feeling okay. He did state that he was not have any nausea vomiting, or abdominal pain. He also denies any current dysfunction with urination. He is concerned about the life vest and would like for me to talk to cards about it. Currently he denies any chest pain, shortness a breath, fevers sweats or chills. 11/19/22? 22:30 This is a 42-year-old male with hypertension who presented to the emergency department for evaluation of abnormal labs. His recent medical history has been complicated. He was hospitalized in mid September with acute cholecystitis and had a laparoscopic cholecystectomy done as an outpatient on 11/05/2022. He returned to the emergency department later that evening with chest pain and was found to have a non STEMI. Though significant coronary artery disease was noted on angiography however there was an appearance suggestive of reverse takotsubo cardiomyopathy with severe left ventricular systolic dysfunction and global EF around 20 to 25%. He developed hyperbilirubinemia and a subsequent HIDA scan confirmed bile leak. He was transferred to [facility] for ERCP due to high risk for additional procedures with his cardiac status. There it sounds as though he had an ERCP with a stent placement. He was hospitalized in their ICU with acute renal failure. At some point time he left against medical advice. He disease primary care provider in follow-up however and he was set up with a LifeVest. He saw Dr. Abarca in follow-up today at which time he reported ongoing issues with nausea and vomiting. Labs were done and he was sent to the ED as his creatinine was 4.40. Transfer was initiated to [facility] given his complicated history however there fallen not taking transfers. ED physician kris ventually spoke with someone affiliated with [facility] and they were able to tell us that his creatinine at the time he left agains
--- NOTE | 2022-11-20 15:38 | PM.IMPN ---
Progress Note: A&P Assessment and Plan (1) Acute kidney injury: Code(s): N17.9 - Acute kidney failure, unspecified Status: Acute Assessment and Plan: Presented to the emergency department for evaluation of abnormal labs obtained at a follow-up appointment Stated that the renal function was higher when he left MOBap noted to be 5.6 BUN/Cr upon admission was 31/3.70 Continue IV fluids Trend urine output Renal dose medications Avoid nephrotoxic medications (2) Cardiomyopathy: Code(s): I42.9 - Cardiomyopathy, unspecified Status: Acute Assessment and Plan: He is currently wearing a life vest that was set up by his primary EF has increased to 50-55% per the echo at [facility] Cardiology ok with discontinuing the life vest at this time, spoke with Loulou Chavez [employer] SUPER[employer]OR Continue cardiac monitoring (3) Postoperative bile leak: Code(s): K91.89 - Other postprocedural complications and disorders of digestive system; K83.8 - Other specified diseases of biliary tract Status: Acute Assessment and Plan: Known leak since the cholecystectomy mild amount noted on the CT Labs stable Continue to trend labs Stable (4) Leukocytosis: Code(s): D72.829 - Elevated white blood cell count, unspecified Status: Acute Assessment and Plan: WBC elevated at 16.7 Currently going up at 17.3 Started patient on ceftriaxone and flagyl Continue to trend labs Time Spent With Patient Time: 43 minutes Time with patient: Greater than 35 minutes Subjective Date/time seen: 11/20/22 121 Interval history: 11/20/221214 Patient stated that he is feeling okay. He did state that he was not have any nausea vomiting, or abdominal pain. He also denies any current dysfunction with urination. He is concerned about the life vest and would like for me to talk to cards about it. Currently he denies any chest pain, shortness a breath, fevers sweats or chills. 11/19/22? 22:30 This is a 42-year-old male with hypertension who presented to the emergency department for evaluation of abnormal labs. His recent medical history has been complicated. He was hospitalized in mid September with acute cholecystitis and had a laparoscopic cholecystectomy done as an outpatient on 11/05/2022. He returned to the emergency department later that evening with chest pain and was found to have a non STEMI. Though significant coronary artery disease was noted on angiography however there was an appearance suggestive of reverse takotsubo cardiomyopathy with severe left ventricular systolic dysfunction and global EF around 20 to 25%. He developed hyperbilirubinemia and a subsequent HIDA scan confirmed bile leak. He was transferred to [facility] for ERCP due to high risk for additional procedures with his cardiac status. There it sounds as though he had an ERCP with a stent placement. He was hospitalized in their ICU with acute renal failure. At some point time he left against medical advice. He disease primary care provider in follow-up however and he was set up with a LifeVest. He saw Dr. Abarca in follow-up today at which time he reported ongoing issues with nausea and vomiting. Labs were done and he was sent to the ED as his creatinine was 4.40. Transfer was initiated to [facility] given his complicated history however there fallen not taking transfers. ED physician eventually spoke with someone affiliated with [facility] and they were able to tell us that his creatinine at the time he left against medical advice was 5.8 so that is improving. Ejection fraction on KYARA on 11/10/2022 was 55 to 60%. With these numbers it is felt that he will be safe to state [place] for hydration and close monitoring. At the time my evaluation his only complaint is that of mild nausea however he is thirsty and ready to try something the eat. He has not noticed any change in urine output or decrease in urine output.
[2022-11-20] MEDS: HYDROcodone/acetaminophen (*CRX) 5-325 MG TABLET 1 TAB PO (19:52)
[2022-11-20 20:00] VITALS: PULSE 95; RESP 17; O2SAT 100
[2022-11-20 22:00] VITALS: BP 134/81; PULSE 93; RESP 18; TEMP 36.6; O2SAT 100
[2022-11-21] MEDS: metroNIDAZOLE 500 MG/ISO 100ML 500 MG/100 ML BAG 100 MG IVPB ×2 (01:18→08:59)
[2022-11-21 06:00] VITALS: BP 129/67; PULSE 91; RESP 20; TEMP 36.2; O2SAT 97
[2022-11-21 07:18] LABS: Basophils Absolute Auto 0.1 K/mm3 (0.0-0.1); Basophils Percent Auto 0.9 % (0.2-1.2); Eosinophils Absolute Auto 0.2 K/mm3 (0-0.3); Eosinophils Percent Auto 1.6 % (0-4.4); Hematocrit 37.1 % (42.0-52.0); Hemoglobin 12.1 g/dL (14.0-18.0); Immature Granulocyte Absolute 0.07 K/mm3 (0.00-0.031); Immature Granulocyte Percent A 0.5 % (0-0.5); Lymphocytes Absolute Auto 1.83 K/mm3 (0.9-3.2); Lymphocytes Percent Auto 14.4 % (18.3-44.2); Mean Corpuscular HGB Conc 32.6 g/dl (32-36); Mean Corpuscular Hemoglobin 25.3 pg (26-34); Mean Corpuscular Volume 77.5 fl (80-100); Mean Platelet Volume 9.3 fl (7.4-10.4); Monocytes Percent Auto 7.9 % (2.6-8.5); Neutrophils Absolute Auto 9.5 K/mm3 (1.3-6.7); Neutrophils Percent Auto 74.7 % (45.5-73.1); Platelet Count Result 642 k/mm3 (150-375); Red Blood Count 4.79 M/mm3 (4.6-6.20); Red Cell Distribution Width 14.3 % (11.5-14.5); White Blood Count 12.7 K/mm3 (4.5-10.0)
[2022-11-21 07:33] LABS: Alanine Aminotransferase 27 U/L (6-50); Alkaline Phosphatase 123 U/L (38-126); Anion Gap 9 mmol/L (8-16); Aspartate Amino Transferase 43 U/L (17-59); Bilirubin,Total 0.8 mg/dL (0.2-1.3); Blood Urea Nitrogen 24 mg/dL (9-20); Calcium 9.1 mg/dL (8.4-10.2); Carbon Dioxide 28 mmol/L (22-30); Chloride 94 mmol/L (98-107); Estimated CRCL calculation 29 ml/min; Estimated Glomerular Filt Rate 22; Glucose 117 mg/dL (65-110); Magnesium 1.7 mg/dL (1.6-2.3); Potassium 3.8 mmol/L (3.4-5.0); Sodium 131 mmol/L (137-145)
[2022-11-21 08:11] VITALS: O2SAT 95
[2022-11-21] MEDS: ONDANSETRON INJ 4 MG/2 ML VIAL IV PUSH ×3 (08:58→20:38)
[2022-11-21] MEDS: LACTATED RINGERS 1,000 ML 75 ML IV CONT (09:02)
[2022-11-21] MEDS: MAGNESIUM SULF 4 GM/WATER100ML 4 GM/100 ML BAG IVPB (11:55)
--- NOTE | 2022-11-21 12:15 | P.PNIM_ITS ---
Progress Note: A&P Assessment and Plan (1) Acute kidney injury: Code(s): N17.9 - Acute kidney failure, unspecified Status: Acute Assessment and Plan: * Presented to the emergency department for evaluation of abnormal labs obtained at a follow-up appointment * Stated that the renal function was higher when he left MOBap noted to be 5.6 * BUN/Cr upon admission was 31/3.70 * Current BUN/Cr 24/3.10 * Continue IV fluids * Trend urine output * Renal dose medications * Avoid nephrotoxic medications * Consider nephrology * Fena score appears to be obstructive * renal ultrasound unremarkable kidneys without hydronephrosis (2) Cardiomyopathy: Qualifiers: Cardiomyopathy type: other Qualified Code(s): I42.8 - Other cardiomyopathies Code(s): I42.9 - Cardiomyopathy, unspecified Status: Acute Assessment and Plan: * He is currently wearing a life vest that was set up by his primary * EF has increased to 50-55% per the echo at [facility] * Cardiology ok with discontinuing the life vest at this time, spoke with Loulou Chavez NP * Continue cardiac monitoring (3) Postoperative bile leak: Code(s): K91.89 - Other postprocedural complications and disorders of digestive system; K83.8 - Other specified diseases of biliary tract Status: Acute Assessment and Plan: * Known leak since the cholecystectomy * mild amount noted on the CT * Labs stable * Continue to trend labs * Stable (4) Leukocytosis: Code(s): D72.829 - Elevated white blood cell count, unspecified Status: Acute Assessment and Plan: * WBC elevated at 16.7 * Currently going up at 12.7 * Started patient on ceftriaxone and flagyl * Continue to trend labs Time Spent With Patient Time: 43 minutes collaborated with cardiology Time with patient: Greater than 35 minutes Subjective Date/time seen: 11/21/221214 Interval history: 11/21/221214 patient is doing okay today. He did state that he got a little nauseous afternoon but he is eating okay. He denies any current chest pain, shortness a breath. He is on liquids currently he would like to advance his diet. BUN creatinine is going down stable. 11/20/221214 Patient stated that he is feeling okay. He did state that he was not have any nausea vomiting, or abdominal pain. He also denies any current dysfunction with urination. He is concerned about the life vest and would like for me to talk to cards about it. Currently he denies any chest pain, shortness a breath, fevers sweats or chills. 11/19/22? 22:30 This is a 42-year-old male with hypertension who presented to the emergency department for evaluation of abnormal labs. His recent medical history has been complicated. He was hospitalized in mid September with acute cholecystitis and had a laparoscopic cholecystectomy done as an outpatient on 11/05/2022. He returned to the emergency department later that evening with chest pain and was found to have a non STEMI. Though significant coronary artery disease was noted on angiography however there was an appearance suggestive of reverse takotsubo cardiomyopathy with severe left ventricular systolic dysfunction and global EF around 20 to 25%. He developed hyperbilirubinemia and a subsequent HIDA scan confirmed bile leak. He was transferred to [facility] for ERCP due to high risk for additional procedures with his cardiac status. There it sounds as though he had an ERCP wit
--- NOTE | 2022-11-21 12:15 | PM.IMPN ---
Progress Note: A&P Assessment and Plan (1) Acute kidney injury: Code(s): N17.9 - Acute kidney failure, unspecified Status: Acute Assessment and Plan: Presented to the emergency department for evaluation of abnormal labs obtained at a follow-up appointment Stated that the renal function was higher when he left MOBap noted to be 5.6 BUN/Cr upon admission was 31/3.70 Current BUN/Cr 24/3.10 Continue IV fluids Trend urine output Renal dose medications Avoid nephrotoxic medications Consider nephrology Fena score appears to be obstructive renal ultrasound unremarkable kidneys without hydronephrosis (2) Cardiomyopathy: Qualifiers: Cardiomyopathy type: other Qualified Code(s): I42.8 - Other cardiomyopathies Code(s): I42.9 - Cardiomyopathy, unspecified Status: Acute Assessment and Plan: He is currently wearing a life vest that was set up by his primary EF has increased to 50-55% per the echo at [facility] Cardiology ok with discontinuing the life vest at this time, spoke with Loulou Chavez [employer] Continue cardiac monitoring (3) Postoperative bile leak: Code(s): K91.89 - Other postprocedural complications and disorders of digestive system; K83.8 - Other specified diseases of biliary tract Status: Acute Assessment and Plan: Known leak since the cholecystectomy mild amount noted on the CT Labs stable Continue to trend labs Stable (4) Leukocytosis: Code(s): D72.829 - Elevated white blood cell count, unspecified Status: Acute Assessment and Plan: WBC elevated at 16.7 Currently going up at 12.7 Started patient on ceftriaxone and flagyl Continue to trend labs Time Spent With Patient Time: 43 minutes collaborated with cardiology Time with patient: Greater than 35 minutes Subjective Date/time seen: 11/21/221214 Interval history: 11/21/221214 patient is doing okay today. He did state that he got a little nauseous afternoon but he is eating okay. He denies any current chest pain, shortness a breath. He is on liquids currently he would like to advance his diet. BUN creatinine is going down stable. 11/20/221214 Patient stated that he is feeling okay. He did state that he was not have any nausea vomiting, or abdominal pain. He also denies any current dysfunction with urination. He is concerned about the life vest and would like for me to talk to cards about it. Currently he denies any chest pain, shortness a breath, fevers sweats or chills. 11/19/22? 22:30 This is a 42-year-old male with hypertension who presented to the emergency department for evaluation of abnormal labs. His recent medical history has been complicated. He was hospitalized in mid September with acute cholecystitis and had a laparoscopic cholecystectomy done as an outpatient on 11/05/2022. He returned to the emergency department later that evening with chest pain and was found to have a non STEMI. Though significant coronary artery disease was noted on angiography however there was an appearance suggestive of reverse takotsubo cardiomyopathy with severe left ventricular systolic dysfunction and global EF around 20 to 25%. He developed hyperbilirubinemia and a subsequent HIDA scan confirmed bile leak. He was transferred to [facility] for ERCP due to high risk for additional procedures with his cardiac status. There it sounds as though he had an ERCP with a stent placement. He was hospitalized in their ICU with acute renal failure. At some point time he left against medical advice. He disease primary care provider in follow-up however and he was set up with a LifeVest. He saw Dr. Abarca in follow-up today at which time he reported ongoing issues with nausea and vomiting. Labs were done and he was sent to the ED as his creatinine was 4.40. Transfer was initiated to [facility] given his complicated history mariely
[2022-11-21 14:00] VITALS: BP 155/95; PULSE 100; RESP 16; TEMP 36.7; O2SAT 100
[2022-11-21] MEDS: metroNIDAZOLE 250 MG TABLET 500 MG PO ×2 (14:18→20:35)
[2022-11-21 22:00] VITALS: BP 133/85; PULSE 95; RESP 20; TEMP 37.2; O2SAT 99
[2022-11-21] MEDS: HYDROcodone/acetaminophen (*CRX) 5-325 MG TABLET 1 TAB PO (22:39)
[2022-11-22] VITALS (7 sets, daily range): BP systolic 102–132; BP diastolic 76–91; PULSE 90–98; RESP 18–20; TEMP 36.1–36.8; O2SAT 98
[2022-11-22] MEDS: LACTATED RINGERS 1,000 ML 75 ML IV CONT ×2 (03:59→20:23)
[2022-11-22] MEDS: metroNIDAZOLE 250 MG TABLET 500 MG PO ×3 (05:13→20:22)
[2022-11-22 05:35] LABS: Basophils Absolute Auto 0.1 K/mm3 (0.0-0.1); Basophils Percent Auto 1.3 % (0.2-1.2); Eosinophils Absolute Auto 0.2 K/mm3 (0-0.3); Eosinophils Percent Auto 1.6 % (0-4.4); Hematocrit 35.9 % (42.0-52.0); Hemoglobin 11.7 g/dL (14.0-18.0); Immature Granulocyte Absolute 0.06 K/mm3 (0.00-0.031); Immature Granulocyte Percent A 0.6 % (0-0.5); Lymphocytes Absolute Auto 2.02 K/mm3 (0.9-3.2); Mean Corpuscular HGB Conc 32.6 g/dl (32-36); Mean Corpuscular Hemoglobin 25.2 pg (26-34); Mean Corpuscular Volume 77.4 fl (80-100); Mean Platelet Volume 9.2 fl (7.4-10.4); Monocytes Absolute Auto 0.9 K/mm3 (0.1-0.6); Monocytes Percent Auto 8.8 % (2.6-8.5); Neutrophils Absolute Auto 7.3 K/mm3 (1.3-6.7); Neutrophils Percent Auto 68.7 % (45.5-73.1); Platelet Count Result 581 k/mm3 (150-375); Red Blood Count 4.64 M/mm3 (4.6-6.20); Red Cell Distribution Width 14.3 % (11.5-14.5); White Blood Count 10.6 K/mm3 (4.5-10.0)
[2022-11-22 05:49] LABS: Alanine Aminotransferase 24 U/L (6-50); Albumin Level 3.6 g/dL (3.5-5.1); Alkaline Phosphatase 114 U/L (38-126); Anion Gap 9 mmol/L (8-16); Aspartate Amino Transferase 37 U/L (17-59); Bilirubin,Total 0.6 mg/dL (0.2-1.3); Blood Urea Nitrogen 18 mg/dL (9-20); Calcium 8.7 mg/dL (8.4-10.2); Carbon Dioxide 28 mmol/L (22-30); Chloride 94 mmol/L (98-107); Estimated CRCL calculation 34 ml/min; Estimated Glomerular Filt Rate 27; Glucose 113 mg/dL (65-110); Magnesium 2.3 mg/dL (1.6-2.3); Potassium 3.6 mmol/L (3.4-5.0); Sodium 131 mmol/L (137-145)
[2022-11-22] MEDS: cefTRIAXone 2 GM/NS 100 ML 2 GM/100 ML BAG IVPB (08:13)
--- NOTE | 2022-11-22 10:52 | PM.IMPN ---
Progress Note: A&P Assessment and Plan (1) Acute kidney injury: Code(s): N17.9 - Acute kidney failure, unspecified Status: Acute Assessment and Plan: Presented to the emergency department for evaluation of abnormal labs obtained at a follow-up appointment BUN/Cr upon admission was 31/3.70 Current BUN/Cr 18/2.6 Continue IV fluids Trend urine output (2) Cardiomyopathy: Qualifiers: Cardiomyopathy type: other Qualified Code(s): I42.8 - Other cardiomyopathies Code(s): I42.9 - Cardiomyopathy, unspecified Status: Acute Assessment and Plan: He is currently wearing a life vest that was set up by his primary EF has increased to 50-55% per the echo at [facility] Cardiology ok with discontinuing the life vest at this time, spoke with Loulou Chavez [employer] [employer] Continue cardiac monitoring Stable on current meds (3) Postoperative bile leak: Code(s): K91.89 - Other postprocedural complications and disorders of digestive system; K83.8 - Other specified diseases of biliary tract Status: Acute Assessment and Plan: Known leak since the cholecystectomy mild amount noted on the CT Labs stable Continue to trend labs Stable (4) Leukocytosis: Code(s): D72.829 - Elevated white blood cell count, unspecified Status: Acute Assessment and Plan: WBC almost normal now Started patient on ceftriaxone and flagyl Continue to trend labs Subjective Date/time seen: 11/22/22 10:52 Patient was seen during the morning rounds today. Feeling better No abdominal pain, no nausea. No sob or chest pain Mood stable. Interval history: 11/21/22 1215 patient is doing okay today. He did state that he got a little nauseous afternoon but he is eating okay. He denies any current chest pain, shortness a breath. He is on liquids currently he would like to advance his diet. BUN creatinine is going down stable. 11/20/22 1215 Patient stated that he is feeling okay. He did state that he was not have any nausea vomiting, or abdominal pain. He also denies any current dysfunction with urination. He is concerned about the life vest and would like for me to talk to cards about it. Currently he denies any chest pain, shortness a breath, fevers sweats or chills. 11/19/22? 22:30 This is a 42-year-old male with hypertension who presented to the emergency department for evaluation of abnormal labs. His recent medical history has been complicated. He was hospitalized in mid September with acute cholecystitis and had a laparoscopic cholecystectomy done as an outpatient on 11/05/2022. He returned to the emergency department later that evening with chest pain and was found to have a non STEMI. Though significant coronary artery disease was noted on angiography however there was an appearance suggestive of reverse takotsubo cardiomyopathy with severe left ventricular systolic dysfunction and global EF around 20 to 25%. He developed hyperbilirubinemia and a subsequent HIDA scan confirmed bile leak. He was transferred to [facility] for ERCP due to high risk for additional procedures with his cardiac status. There it sounds as though he had an ERCP with a stent placement. He was hospitalized in their ICU with acute renal failure. At some point time he left against medical advice. He disease primary care provider in follow-up however and he was set up with a LifeVest. He saw Dr. Abarca in follow-up today at which time he reported ongoing issues with nausea and vomiting. Labs were done and he was sent to the ED as his creatinine was 4.40. Transfer was initiated to [facility] given his complicated history however there fallen not taking transfers. ED physician eventually spoke with someone affiliated with [facility] and they were able to tell us that his creatinine at the time he left against medical advice was 5.8 so that is improving. Ejection fraction on KYARA on 0
[2022-11-22] MEDS: ONDANSETRON INJ 4 MG/2 ML VIAL IV PUSH ×2 (15:18→20:23)
[2022-11-23] VITALS: PULSE 101
[2022-11-23] MEDS: ONDANSETRON INJ 4 MG/2 ML VIAL IV PUSH ×2 (01:55→08:00)
[2022-11-23 04:53] VITALS: PULSE 107
[2022-11-23] MEDS: metroNIDAZOLE 250 MG TABLET 500 MG PO (05:11)
[2022-11-23 05:46] VITALS: BP 122/70; PULSE 100; RESP 16; TEMP 36.7; O2SAT 99
[2022-11-23 06:45] LABS: Alanine Aminotransferase 21 U/L (6-50); Albumin Level 3.7 g/dL (3.5-5.1); Alkaline Phosphatase 108 U/L (38-126); Anion Gap 10 mmol/L (8-16); Aspartate Amino Transferase 32 U/L (17-59); Bilirubin,Total 0.6 mg/dL (0.2-1.3); Blood Urea Nitrogen 19 mg/dL (9-20); Calcium 8.9 mg/dL (8.4-10.2); Carbon Dioxide 26 mmol/L (22-30); Chloride 95 mmol/L (98-107); Estimated CRCL calculation 41 ml/min; Estimated Glomerular Filt Rate 33; Glucose 113 mg/dL (65-110); Potassium 3.8 mmol/L (3.4-5.0); Sodium 131 mmol/L (137-145)
[2022-11-23 08:00] VITALS: PULSE 106
[2022-11-23] MEDS: cefTRIAXone 2 GM/NS 100 ML 2 GM/100 ML BAG IVPB (08:18)
--- NOTE | 2022-11-23 10:04 | PM.DS ---
DS: Admitting Diagnosis Discharge Date 11/23/2022 Admitting Diagnosis Dehydration DS: Discharge Diagnosis Discharge Diagnosis (1) Acute kidney injury: Code(s): N17.9 - Acute kidney failure, unspecified Status: Acute Assessment and Plan: Presented to the emergency department for evaluation of abnormal labs obtained at a follow-up appointment BUN/Cr upon admission was 31/3.70 Current BUN/Cr 18/2.6 Continue IV fluids Trend urine output (2) Cardiomyopathy: Qualifiers: Cardiomyopathy type: other Qualified Code(s): I42.8 - Other cardiomyopathies Code(s): I42.9 - Cardiomyopathy, unspecified Status: Acute Assessment and Plan: He is currently wearing a life vest that was set up by his primary EF has increased to 50-55% per the echo at [facility] Cardiology ok with discontinuing the life vest at this time, spoke with Loulou Chavez [employer] Continue cardiac monitoring Stable on current meds (3) Postoperative bile leak: Code(s): K91.89 - Other postprocedural complications and disorders of digestive system; K83.8 - Other specified diseases of biliary tract Status: Acute Assessment and Plan: Known leak since the cholecystectomy mild amount noted on the CT Labs stable Continue to trend labs Stable (4) Leukocytosis: Code(s): D72.829 - Elevated white blood cell count, unspecified Status: Acute Assessment and Plan: WBC almost normal now Started patient on ceftriaxone and flagyl Continue to trend labs DS: Summary Hospital Course Hospital Course: This is a 42-year-old male with hypertension who presented to the emergency department for evaluation of abnormal labs. His recent medical history has been complicated. He was hospitalized in mid September with acute cholecystitis and had a laparoscopic cholecystectomy done as an outpatient on 11/05/2022. He returned to the emergency department later that evening with chest pain and was found to have a non STEMI. Though significant coronary artery disease was noted on angiography however there was an appearance suggestive of reverse takotsubo cardiomyopathy with severe left ventricular systolic dysfunction and global EF around 20 to 25%. He developed hyperbilirubinemia and a subsequent HIDA scan confirmed bile leak. He was transferred to [facility] for ERCP due to high risk for additional procedures with his cardiac status. There it sounds as though he had an ERCP with a stent placement. He was hospitalized in their ICU with acute renal failure. At some point time he left against medical advice. He disease primary care provider in follow-up however and he was set up with a LifeVest. He saw Dr. Abarca in follow-up today at which time he reported ongoing issues with nausea and vomiting. Labs were done and he was sent to the ED as his creatinine was 4.40. Transfer was initiated to [facility] given his complicated history however there fallen not taking transfers. ED physician eventually spoke with someone affiliated with [facility] and they were able to tell us that his creatinine at the time he left against medical advice was 5.8 so that is improving. Ejection fraction on KYARA on 11/10/2022 was 55 to 60%. With these numbers it is felt that he will be safe to state [place] for hydration and close monitoring. At the time my evaluation his only complaint is that of mild nausea however he is thirsty and ready to try something the eat. He has not noticed any change in urine output or decrease in urine output. He denies fever, chills, sweats, lightheadedness, dizziness, chest pain, shortness a breath, orthopnea, paroxysmal nocturnal dyspnea, diarrhea, and lower extremity edema. Patient was given IV fluids and IV antibiotics. Today patient is feeling better. Patient discharged home in stable condition. Time Spent with Patient Time attestation: Total time spent providing and/or coordinating di
[2022-11-23] MEDS: ENOXAPARIN 40 MG/0.4 ML SYRINGE SUB-Q (10:39)
[2022-11-23 20:20] LABS: Osmolality, Urine 313 mOsm/kg (50-1200)
== END 2022-11-23 12:40 | disposition home or self-care (01) | DRG 469 ==
LOC: ANHED 22:58 → ANH3MEDSUR 23:47
PROVIDERS: Nurse Practitioner; Physician Assistant; Admitting Provider Family Medicine; Emergency Provider Student in an Organized Health Care Education/Training Program; PCP Nurse Practitioner Family; Visit Provider Internal Medicine
DX: N17.9 Acute kidney failure, unspecified (principal); I42.8 Other cardiomyopathies; K91.89 Other postprocedural complications and disorders of digestive system; K83.8 Other specified diseases of biliary tract; I51.81 Takotsubo syndrome; I25.10 Atherosclerotic heart disease of native coronary artery without angina pectoris; E86.0 Dehydration; D72.829 Elevated white blood cell count, unspecified; I10 Essential (primary) hypertension; E78.5 Hyperlipidemia, unspecified; Z90.49 Acquired absence of other specified parts of digestive tract; Z87.891 Personal history of nicotine dependence
CPT/HCPCS: 36415; 74176; 76775; 80048; 80053; 82570; 82607; 82728; 82746; 83540; 83550; 83735; 83880; 83935; 84133; 84145; 84300; 84443; 84540; 85025; 85027; 85046; 85652; 86140; 96361; 96365; 96374; 99285; A9270; G0378; G0379; J0696; J1650; J1836; J2405; J3475; J7030; J7120